=== PATIENT | female | born 1955 | race Caucasian/White ===

== ENCOUNTER 2018-01-19 14:20 | Emergency (ER) | payer OTHER, SELFPAY ==
[2018-01-19 14:29] VITALS: BP 129/86; PULSE 74; RESP 16; TEMP 36.4; O2SAT 100
--- NOTE | 2018-01-19 14:37 | ED.HA ---
HPI - Headache <MARITZA NelsonBC - Last Filed: 01/19/18 22:00> General Chief Complaint: Headache Stated Complaint: FALL-HEAD HURTS Time Seen by Provider: 01/19/18 14:37 Source: patient and family Mode of arrival: ambulatory Limitations: no limitations History of Present Illness HPI Narrative: Patient states she fell on Saturday while on a cruise. She hit her head while she was walking in the dark. She tripped and fell. She denied LOC. However she states the next day her friend said she was acting confused and she had difficulty using her words. She complained of feeling slow and feeling ???foggy.??? She denies any vomiting and states she has felt better since. However her head still hurts. She has been taking ibuprofen for the pain. Last dose approximately 5 hr prior to arrival. She denies any nausea, vomiting, noise sensitivity or light sensitivity. She denies any chest pain, shortness of breath, neck pain or back pain. Related Data Previous Rx's Medication Instructions Recorded bupropion HCl 300 mg PO QDAY #90 tab 04/30/17 buspirone 10 mg PO BID #180 tab 04/30/17 fluticasone 1 spray INTRANASAL BID #16 gm 04/30/17 hydrochlorothiazide 25 mg PO QDAY #90 tab 04/30/17 lisinopril [Prinivil] 20 mg PO Q DAY #90 tab 04/30/17 ranitidine HCl 150 mg PO QDAY #180 tab 04/30/17 simvastatin 20 mg PO HS #90 tab 04/30/17 topiramate [Topamax] 25 mg PO QDAY #90 cap 04/30/17 trazodone 50 mg PO HSP PRN #90 tab 04/30/17 scopolamine 1 mg over 3 days 1 patch TRANSDERMAL Q3D PRN #2 01/08/18 transdermal patch patch Allergies Allergy/AdvReac Type Severity Reaction Status Date / Time Penicillins [PENICILLINS] Allergy Unknown Unverified 12/11/17 12:59 SULFA Allergy Severe ANAPHYLAXIS Uncoded 12/11/17 12:59 Review of Systems <DAVE Nelson - Last Filed: 01/19/18 22:00> Review of Systems GENERAL: See HPI HEENT: Denies sinus pain, ear pain, sore throat, difficulty swallowing, dizziness. RESPIRATORY: Denies dyspnea, cough, wheezing, hemoptysis, sputum. CARDIOVASCULAR: Denies chest pain, palpitations, orthopnea, edema, GASTROINTESTINAL: Denies nausea, vomiting, abdominal pain, diarrhea, constipation, melena. : Denies dysuria, frequency, incontinence, hematuria, urinary retention. MUSCULOSKELETAL: denies weakness, joint pain, or bony pain SKIN: Denies rash, skin lesions, or other NEUROLOGIC: See HPI PSYCHIATRIC: No concerning psychosocial issues. 12 point review of systems is negative except for those stated above Exam <RAHUL Nelson-BC - Last Filed: 01/19/18 22:00> Narrative Exam Narrative: GENERAL: This is a well-nourished, well-developed patient, in no distress HEAD: Atraumatic. Normocephalic. Patient complains of slight tenderness when palpating the back of her head. However no deformity palpated no hematoma noted EYES: Pupils equal round and reactive. Extraocular motions intact. No scleral icterus. No injection or drainage. No nystagmus on exam. ENT: Nose without bleeding, purulent drainage or septal hematoma. Throat without erythema, tonsillar hypertrophy or exudate. Uvula midline. Airway patent. NECK: Trachea midline. No JVD or lymphadenopathy. Supple, nontender, no meningeal signs. CARDIOVASCULAR: Regular rate and rhythm without murmurs, gallops, or rubs. RESPIRATORY: Clear to auscultation. Breath sounds equal bilaterally. No wheezes, rales, or rhonchi. GASTROINTESTINAL: Abdomen soft, non-tender, nondistended. No hepato-splenomegaly, or palpable masses. No guarding. EXTREMITIES: No clubbing, cyanosis, or edema. No joint tenderness, effusion, or edema noted. BACK: Nontender without deformity or crepitance. No flank tenderness. No C-spine or spinal tenderness to palpation. NEURO: AOx3. Strength equal upper and lower extremities bilaterally. Upper and lower reflexes intact. SKIN: No rash or erythema. Initial Vital Signs Initial Vital Signs: Vital Signs Temperature 97.6 F 01/19/18 14:29 Pulse Rate 74 01/19/18 14:29 Respiratory Rate 16 01/19/18 14:29 Blood Pressure 129/86 H 01/19/18 14:29 Pulse Oximetry 100 01/19/18 14:29 <Alex Dumont DO - Last Filed: 01/20/18 07:15> Initial Vital Signs Initial Vital Signs: Vital Signs Temperature 97.6 F 01/19/18 14:29 Pulse Rate 74 01/19/18 14:29 Respiratory Rate 16 01/19/18 14:29 Blood Pressure 129/86 H 01/19/18 14:29 Pulse Oximetry 100 01/19/18 14:29 Course <Maggi HuynhRAHUL-BC - Last Filed: 01/19/18 22:00> Hospital Course: The patient presented several days after falling and hitting her head. She is alert and oriented with a reassuring exam. She had a CT noncontrast to evaluate for intracranial abnormality. Once that came back negative she was given Toradol and Tylenol for her headache with pain relief. Orders Ordered: Discontinued Medications Acetaminophen (Tylenol) 975 mg PO NOW ONE Stop: 01/19/18 16:00 Last Admin: 01/19/18 16:22 Dose: 975 mg Ketorolac Tromethamine (Toradol) 30 mg IM NOW ONE Stop: 01/19/18 16:00 Last Admin: 01/19/18 16:22 Dose: 30 mg Vital Signs - 8 hr 01/19/18 14:29 01/19/18 15:52 01/19/18 16:54 Temperature 97.6 F 98.4 F Pulse Rate 74 68 67 Respiratory Rate 16 18 20 Blood Pressure 129/86 H 130/79 H Blood Pressure [Left Arm] 124/80 H Pulse Oximetry 100 94 96 <Alex Dumont DO - Last Filed: 01/20/18 07:15> Orders Ordered: Discontinued Medications Acetaminophen (Tylenol) 975 mg PO NOW ONE Stop: 01/19/18 16:00 Last Admin: 01/19/18 16:22 Dose: 975 mg Ketorolac Tromethamine (Toradol) 30 mg IM NOW ONE Stop: 01/19/18 16:00 Last Admin: 01/19/18 16:22 Dose: 30 mg Vital Signs - 8 hr 01/19/18 14:29 01/19/18 15:52 01/19/18 16:54 Temperature 97.6 F 98.4 F Pulse Rate 74 68 67 Respiratory Rate 16 18 20 Blood Pressure 129/86 H 130/79 H Blood Pressure [Left Arm] 124/80 H Pulse Oximetry 100 94 96 MDM - Headache <DAVE Nelson - Last Filed: 01/19/18 22:00> Differential Diagnosis Differential diagnosis: Likely migraine, headache and postconcussion syndrome Medical Records Attestation: I reviewed the patient's medical records. Imaging Data CT scan - head: Radiologist's impression: [address] [address] [address] Scan Report Signed Patient: Claudette Vaughn MR#: [id number] : 1955 Acct:[id number] Age/Sex: 62 / F Date of Service: 01/19/18 Loc: ED Accession Number: [id number] Procedure: CT head/brain wo con Ordering Provider: Maggi Huynh PROCEDURE: CT HEAD/BRAIN WO CON INDICATIONS: fall TECHNIQUE: Noncontrast 4.5 mm thick angled axial sections acquired from the foramen magnum to the vertex, with coronal and sagittal reformats. For radiation dose reduction, the following was used: automated exposure control, adjustment of mA and/or kV according to patient size. COMPARISON: None. FINDINGS: Image quality: Excellent. CSF spaces: Basal cisterns are patent. No extra-axial fluid collections. Ventricles are normal in size and shape. Brain: No intracranial hemorrhage, mass, or mass effect. Rivera-white matter interface is preserved. Skull and face: Calvarium and visualized facial bones are intact, without suspicious lesions. Sinuses: Visualized sinuses demonstrate mild mucosal thickening within the maxillary and ethmoid sinuses. The mastoid air cells are clear. IMPRESSION: 1. No acute intracranial abnormality. Dictated by: Remington Trinidad M.D. on 01/19/2018 at 15:33 Approved by: Remington Trinidad M.D. on 01/19/2018 at 15:34 [facility] Narrative Medical decision making narrative: The patient presented several days after falling and hitting her head. Given that she tripped and fell without LOC but had persistent neurological symptoms according to her friends, a CT was obtained. The CT came back within normal limits and she is not on blood thinners. I am comfortable discharging her with concussion precautions to come back if she has any altered mental status or sudden acute changes. Given the length of time since the fall, I am confident that she will continue to improve. However I discussed at length her return precautions and she states understanding and appreciation. No questions or concerns upon discharge. Discharge Plan Departure Patient Disposition: Home, Self-Care Clinical Impression: Headache, Concussion Discharge Date/Time: 01/19/18 16:55 Interventions: ED Discharge Assessment Last Done: 01/19/18 16:54 Instructions: DI for Concussion, DI for Headache Activity Restrictions/Additional Instructions: Your brain scan today came back normal. I think you have a concussion. Monitor for confusion, trouble speaking, and vomiting. Come back if you are worried about you neuro status. Continue to take Tylenol and ibuprofen for pain. Please do not take ibuprofen for about 8 hr given the pain shot you received here today. Prescriptions: No Action trazodone 50 MG tablet 50 mg PO HSP PRNQty: 90 RF: 3 lisinopril [Prinivil] 20 MG tablet 20 mg PO Q DAY Qty: 90 RF: 3 topiramate [Topamax] 25 MG capsule, sprinkle 25 mg PO QDAY Qty: 90 RF: 3 simvastatin 20 MG tablet 20 mg PO HS Qty: 90 RF: 3 ranitidine HCl 150 MG tablet 150 mg PO QDAY Qty: 180 RF: 3 buspirone 10 MG tablet 10 mg PO BID Qty: 180 RF: 3 hydrochlorothiazide 25 MG tablet 25 mg PO QDAY Qty: 90 RF: 3 fluticasone 16 GM spray,suspension 1 spray Intranasal BID Qty: 16 RF: 3 bupropion HCl 300 MG tablet extended release 24 hr 300 mg PO QDAY Qty: 90 RF: 3 scopolamine base [Transderm-Scop] 1 mg over 3 days patch 3 day 1 patch Transdermal Q3D PRN (Reason: motion sickness) Qty: 2 RF: 0 Referrals: Bisi Lockwood MD [Primary Care Provider] - <Alex Dumont DO - Last Filed: 01/20/18 07:15> Cosign ED Attending Jerryature Attestation: I was available for consultation during this patient's emergency department encounter
--- NOTE | 2018-01-19 14:45 | DI.CT.S_ITS ---
PROCEDURE: CT HEAD/BRAIN WO CON INDICATIONS: fall TECHNIQUE: Noncontrast 4.5 mm thick angled axial sections acquired from the foramen magnum to the vertex, with coronal and sagittal reformats. For radiation dose reduction, the following was used: automated exposure control, adjustment of mA and/or kV according to patient size. COMPARISON: None. FINDINGS: Image quality: Excellent. CSF spaces: Basal cisterns are patent. No extra-axial fluid collections. Ventricles are normal in size and shape. Brain: No intracranial hemorrhage, mass, or mass effect. Rivera-white matter interface is preserved. Skull and face: Calvarium and visualized facial bones are intact, without suspicious lesions. Sinuses: Visualized sinuses demonstrate mild mucosal thickening within the maxillary and ethmoid sinuses. The mastoid air cells are clear. IMPRESSION: 1. No acute intracranial abnormality. Dictated by: Remington Trinidad M.D. on 01/19/2018 at 15:33 Approved by: Remington Trinidad M.D. on 01/19/2018 at 15:34
--- NOTE | 2018-01-19 14:51 | PC.NURSE ---
pt reports, she was in the cruise [place], lost balance, back of head injury, denies loc, denies neck or back pain,occured at 230am, pt able to get up , then she went to sleep. has been taking ibuprofen 2-3 tabs without relief, last dose at 1130am today. c/o rght side headache, dull achy. neuro fast exam negative
[2018-01-19 15:52] VITALS: BP 124/80; PULSE 68; RESP 18; O2SAT 94
[2018-01-19] MEDS: KETOROLAC 60 MG/2 ML VIAL 30 MG IM (16:22)
[2018-01-19] MEDS: ACETAMINOPHEN 325 MG TABLET 975 MG PO (16:22)
--- NOTE | 2018-01-19 16:50 | ED_ITS ---
HPI - Headache <MARITZA NelsonBC - Last Filed: 01/19/18 22:00> General Chief Complaint: Headache Stated Complaint: FALL-HEAD HURTS Time Seen by Provider: 01/19/18 14:37 Source: patient and family Mode of arrival: ambulatory Limitations: no limitations History of Present Illness HPI Narrative: Patient states she fell on Saturday while on a cruise. She hit her head while she was walking in the dark. She tripped and fell. She denied LOC. However she states the next day her friend said she was acting confused and she had difficulty using her words. She complained of feeling slow and feeling ?foggy.? She denies any vomiting and states she has felt better since. However her head still hurts. She has been taking ibuprofen for the pain. Last dose approximately 5 hr prior to arrival. She denies any nausea, vomiting , noise sensitivity or light sensitivity. She denies any chest pain, shortness of breath, neck pain or back pain. Related Data Previous Rx's Medication Instructions Recorded bupropion HCl 300 mg PO QDAY #90 tab 04/30/17 buspirone 10 mg PO BID #180 tab 04/30/17 fluticasone 1 spray INTRANASAL BID #16 gm 04/30/17 hydrochlorothiazide 25 mg PO QDAY #90 tab 04/30/17 lisinopril [Prinivil] 20 mg PO Q DAY #90 tab 04/30/17 ranitidine HCl 150 mg PO QDAY #180 tab 04/30/17 simvastatin 20 mg PO HS #90 tab 04/30/17 topiramate [Topamax] 25 mg PO QDAY #90 cap 04/30/17 trazodone 50 mg PO HSP PRN #90 tab 04/30/17 scopolamine 1 mg over 3 days 1 patch TRANSDERMAL Q3D PRN #2 01/08/18 transdermal patch patch Allergies Allergy/AdvReac Type Severity Reaction Status Date / Time Penicillins [PENICILLINS] Allergy Unknown Unverified 12/11/17 12:59 SULFA Allergy Severe ANAPHYLAXIS Uncoded 12/11/17 12:59 Review of Systems <DAVE Nelson - Last Filed: 01/19/18 22:00> Review of Systems GENERAL: See HPI HEENT: Denies sinus pain, ear pain, sore throat, difficulty swallowing, dizziness. RESPIRATORY: Denies dyspnea, cough, wheezing, hemoptysis, sputum. CARDIOVASCULAR: Denies chest pain, palpitations, orthopnea, edema, GASTROINTESTINAL: Denies nausea, vomiting, abdominal pain, diarrhea, constipation, melena. : Denies dysuria, frequency, incontinence, hematuria, urinary retention. MUSCULOSKELETAL: denies weakness, joint pain, or bony pain SKIN: Denies rash, skin lesions, or other NEUROLOGIC: See HPI PSYCHIATRIC: No concerning psychosocial issues. 12 point review of systems is negative except for those stated above Exam <RAHUL Nelson-BC - Last Filed: 01/19/18 22:00> Narrative Exam Narrative: GENERAL: This is a well-nourished, well-developed patient, in no distress HEAD: Atraumatic. Normocephalic. Patient complains of slight tenderness when palpating the back of her head. However no deformity palpated no hematoma noted EYES: Pupils equal round and reactive. Extraocular motions intact. No scleral icterus. No injection or drainage. No nystagmus on exam. ENT: Nose without bleeding, purulent drainage or septal hematoma. Throat without erythema, tonsillar hypertrophy or exudate. Uvula midline. Airway patent. NECK: Trachea midline. No JVD or lymphadenopathy. Supple, nontender, no meningeal signs. CARDIOVASCULAR: Regular rate and rhythm without murmurs, gallops, or rubs. RESPIRATORY: Clear to auscultation. Breath sounds equal bilaterally. No wheezes , rales, or rhonchi. GASTROINTESTINAL: Abdomen soft, non-tender, nondistended. No hepato-splenomegaly , or palpable masses. No guarding. EXTREMITIES: No clubbing, cyanosis, or edema. No joint tenderness, effusion, or edema noted. BACK: Nontender without deformity or crepitance. No flank tenderness. No C- spine or spinal tenderness to palpation. NEURO: AOx3. Strength equal upper and lower extremities bilaterally. Upper and lower reflexes intact. SKIN: No rash or erythema. Initial Vital Signs Initial Vital Signs: Vital Signs Temperature 97.6 F 01/19/18 14:29 Pulse Rate 74 01/19/18 14:29 Respiratory Rate 16 01/19/18 14:29 Blood Pressure 129/86 H 01/19/18 14:29 Pulse Oximetry 100 01/19/18 14:29 <Alex Dumont DO - Last Filed: 01/20/18 07:15> Initial Vital Signs Initial Vital Signs: Vital Signs Temperature 97.6 F 01/19/18 14:29 Pulse Rate 74 01/19/18 14:29 Respiratory Rate 16 01/19/18 14:29 Blood Pressure 129/86 H 01/19/18 14:29 Pulse Oximetry 100 01/19/18 14:29 Course <RAHUL Nelson-BC - Last Filed: 01/19/18 22:00> Hospital Course: The patient presented several days after falling and hitting her head. She is alert and oriented with a reassuring exam. She had a CT noncontrast to evaluate for intracranial abnormality. Once that came back negative she was given Toradol and Tylenol for her headache with pain relief. Orders Ordered: Discontinued Medications Acetaminophen (Tylenol) 975 mg PO NOW ONE Stop: 01/19/18 16:00 Last Admin: 01/19/18 16:22 Dose: 975 mg Ketorolac Tromethamine (Toradol) 30 mg IM NOW ONE Stop: 01/19/18 16:00 Last Admin: 01/19/18 16:22 Dose: 30 mg Vital Signs - 8 hr 01/19/18 14:29 01/19/18 15:52 01/19/18 16:54 Temperature 97.6 F 98.4 F Pulse Rate 74 68 67 Respiratory Rate 16 18 20 Blood Pressure 129/86 H 130/79 H Blood Pressure [Left Arm] 124/80 H Pulse Oximetry 100 94 96 <Alex Dumont DO - Last Filed: 01/20/18 07:15> Orders Ordered: Discontinued Medications Acetaminophen (Tylenol) 975 mg PO NOW ONE Stop: 01/19/18 16:00 Last Admin: 01/19/18 16:22 Dose: 975 mg Ketorolac Tromethamine (Toradol) 30 mg IM NOW ONE Stop: 01/19/18 16:00 Last Admin: 01/19/18 16:22 Dose: 30 mg Vital Signs - 8 hr 01/19/18 14:29 01/19/18 15:52 01/19/18 16:54 Temperature 97.6 F 98.4 F Pulse Rate 74 68 67 Respiratory Rate 16 18 20 Blood Pressure 129/86 H 130/79 H Blood Pressure [Left Arm] 124/80 H Pulse Oximetry 100 94 96 MDM - Headache <DAVE Nelson - Last Filed: 01/19/18 22:00> Differential Diagnosis Differential diagnosis: Likely migraine, headache and postconcussion syndrome Medical Records Attestation: I reviewed the patient's medical records. Imaging Data CT scan - head: Radiologist's impression: [address] [address] [address] Scan Report Signed Patient: Claudette Vaughn MR#: [id number] : 1955 Acct:[id number] Age/Sex: 62 / F Date of Service: 01/19/18 Loc: ED Accession Number: [id number] Procedure: CT head/brain wo con Ordering Provider: Maggi Huynh PROCEDURE: CT HEAD/BRAIN WO CON INDICATIONS: fall TECHNIQUE: Noncontrast 4.5 mm thick angled axial sections acquired from the foramen magnum to the vertex, with coronal and sagittal reformats. For radiation dose reduction, the following was used: automated exposure control, adjustment of mA and/or kV according to patient size. COMPARISON: None. FINDINGS: Image quality: Excellent. CSF spaces: Basal cisterns are patent. No extra-axial fluid collections. Ventricles are normal in size and shape. Brain: No intracranial hemorrhage, mass, or mass effect. Rivera-white matter interface is preserved. Skull and face: Calvarium and visualized facial bones are intact, without suspicious lesions. Sinuses: Visualized sinuses demonstrate mild mucosal thickening within the maxillary and ethmoid sinuses. The mastoid air cells are clear. IMPRESSION: 1. No acute intracranial abnormality. Dictated by: Remington Trinidad M.D. on 01/19/2018 at 15:33 Approved by: Remington Trinidad M.D. on 01/19/2018 at 15:34 [facility] Narrative Medical decision making narrative: The patient presented several days after falling and hitting her head. Given that she tripped and fell without LOC but had persistent neurological symptoms according to her friends, a CT was obtained. The CT came back within normal limits and she is not on blood thinners. I am comfortable discharging her with concussion precautions to come back if she has any altered mental status or sudden acute changes. Given the length of time since the fall, I am confident that she will continue to improve. However I discussed at length her return precautions and she states understanding and appreciation. No questions or concerns upon discharge. Discharge Plan Departure Patient Disposition: Home, Self-Care Clinical Impression: Headache, Concussion Discharge Date/Time: 01/19/18 16:55 Interventions: ED Discharge Assessment Last Done: 01/19/18 16:54 Instructions: DI for Concussion, DI for Headache Activity Restrictions/Additional Instructions: Your brain scan today came back normal. I think you have a concussion. Monitor for confusion, trouble speaking, and vomiting. Come back if you are worried about you neuro status. Continue to take Tylenol and ibuprofen for pain. Please do not take ibuprofen for about 8 hr given the pain shot you received here today. Prescriptions: No Action trazodone 50 MG tablet 50 mg PO HSP PRNQty: 90 RF: 3 lisinopril [Prinivil] 20 MG tablet 20 mg PO Q DAY Qty: 90 RF: 3 topiramate [Topamax] 25 MG capsule, sprinkle 25 mg PO QDAY Qty: 90 RF: 3 simvastatin 20 MG tablet 20 mg PO HS Qty: 90 RF: 3 ranitidine HCl 150 MG tablet 150 mg PO QDAY Qty: 180 RF: 3 buspirone 10 MG tablet 10 mg PO BID Qty: 180 RF: 3 hydrochlorothiazide 25 MG tablet 25 mg PO QDAY Qty: 90 RF: 3 fluticasone 16 GM spray,suspension 1 spray Intranasal BID Qty: 16 RF: 3 bupropion HCl 300 MG tablet extended release 24 hr 300 mg PO QDAY Qty: 90 RF: 3 scopolamine base [Transderm-Scop] 1 mg over 3 days patch 3 day 1 patch Transdermal Q3D PRN (Reason: motion sickness) Qty: 2 RF: 0 Referrals: Bisi Lockwood MD [Primary Care Provider] - <Alex Dumont DO - Last Filed: 01/20/18 07:15> Cosign ED Attending Deb Attestation: I was available for consultation during this patient's emergency department encounter
[2018-01-19 16:54] VITALS: BP 130/79; PULSE 67; RESP 20; TEMP 36.9; O2SAT 96
== END 2018-01-19 16:55 | disposition home or self-care (01) ==
PROVIDERS: Emergency Provider Nurse Practitioner Family; PCP Family Medicine
DX: R51 Headache (principal); S06.0X9A Concussion with loss of consciousness of unspecified duration, initial encounter; W19.XXXA Unspecified fall, initial encounter
CPT/HCPCS: 70450; 96372; 99283; J1885

== ENCOUNTER → 2018-07-04 09:31 | Outpatient (CLI) | payer MEDICARE, OTHER, SELFPAY ==
[2018-07-04 10:28] LABS: BUN Creatinine Ratio 21.3 (6-22); Blood Urea Nitrogen 17 mg/dL (7-17); Estimated Glomerular Filt Rate > 60.0 mL/min (>60)
== END ==
PROVIDERS: PCP Family Medicine; Visit Provider Ophthalmology
DX: H05.20 Unspecified exophthalmos (principal)
CPT/HCPCS: 36415; 82565; 84520

== ENCOUNTER → 2018-07-10 07:32 | Outpatient (CLI) | payer MEDICARE, OTHER, SELFPAY ==
--- NOTE | 2018-07-10 | DI.MRI.S_ITS ---
PROCEDURE: MR HEAD/BRAIN WO/W CON INDICATIONS: Unspecified exophthalmos TECHNIQUE: Noncontrast axial T1 spin echo, axial T2 fast spin echo, sagittal and axial FLAIR, coronal T2 fast spin echo, axial gradient echo, axial diffusion and ADC through the brain. After the administration of contrast, axial and coronal T1 spin echo with fat saturation through the brain. COMPARISON: [facility], CT, CT HEAD/BRAIN WO CON, 01/19/2018, 14:55. FINDINGS: Image quality: Excellent. CSF spaces: Basal cisterns are patent. No extra-axial fluid collections. Ventricles are normal in size and shape. Brain: No midline shift. No intracranial bleeds or masses. No abnormal intracranial enhancement. There is cerebral volume loss for age. There is periventricular white matter chronic small vessel ischemic change. The brainstem appears normal. Diffusion-weighted images demonstrate no acute ischemic insults. No chronic ischemic insults. Normal intravascular flow voids are present. Skull and face: Calvarial marrow is normal in signal. Orbits appear normal. Extraocular muscles are within normal limits. Visualized optic nerve and optic chiasm are within normal limits. Mild proptosis is present. Sinuses: Sinuses demonstrate minimal frothy fluid within the right maxillary sinus. Otherwise, there is minimal mild li sinus mucosal thickening. Frontal sinuses are aplastic, consistent with congenital variation. IMPRESSION: 1. No acute intracranial process. 2. Mild proptosis. Otherwise, orbits are unremarkable. Dictated by: Paola Ronquillo M.D. on 07/10/2018 at 9:57 Approved by: Paola Ronquillo M.D. on 07/10/2018 at 10:37
== END ==
PROVIDERS: PCP Family Medicine; Visit Provider Family Medicine
DX: H05.20 Unspecified exophthalmos (principal)
CPT/HCPCS: 70553; A9579

== ENCOUNTER → 2018-07-15 09:19 | Outpatient (CLI) | payer MEDICARE, OTHER, SELFPAY | PROVIDERS: PCP Family Medicine; Visit Provider Family Medicine | DX: Z12.11 Encounter for screening for malignant neoplasm of colon (principal) ==

== ENCOUNTER → 2018-07-15 | Outpatient (CLI) | payer MEDICARE, OTHER, SELFPAY | PROVIDERS: PCP Family Medicine; Visit Provider Family Medicine | DX: Z12.11 Encounter for screening for malignant neoplasm of colon (principal) ==

== ENCOUNTER → 2018-08-18 09:32 | Outpatient (CLI) | payer MEDICARE, OTHER, SELFPAY ==
[2018-08-18 11:18] LABS: TSH w/ Reflex to FT4 1.05 uIU/mL (0.47-4.68)
== END ==
PROVIDERS: PCP Family Medicine; Visit Provider Family Medicine
DX: H05.20 Unspecified exophthalmos (principal)
CPT/HCPCS: 36415; 84443

== ENCOUNTER → 2018-09-16 07:40 | Outpatient (CLI) | payer MEDICARE, OTHER, SELFPAY ==
--- NOTE | 2018-09-16 | DI.CT.S_ITS ---
PROCEDURE: CT LE LT W CON INDICATIONS: POST FRACTURE OF LEFT TIBIAL PLATE PLATEAU TECHNIQUE: Noncontrast 1-1.5 mm axial sections acquired from the mid-patella to the proximal tibia, with coronal and sagittal reformats. COMPARISON: [facility], XR KNEE ARTHRITIC SERIES LT, 09/15/2018, 14:58. FINDINGS: Image quality: Excellent. Bones: A corresponding to the abnormality seen on plain film imaging 09/15/18 there is a lateral tibial plateau fracture that is underestimated by plain film imaging. This fracture has a transverse dimension of approximately 2.7 cm and centrally there is a component of the tibial plateau that is fractured and a impacted inferiorly via approximately 8 mm from anatomic position. This is associated with a vertically oriented along the fracture plane extending from the articular margin into the proximal diaphysis of the tibia, superiorly to a greater degree than inferiorly. The lateral aspect of the lateral tibial plateau is not depressed and appears in virtual anatomic alignment. On sagittal reformatted imaging the depressed tibial plateau component is predominantly involving the posterior half of the lateral tibial plateau and the posterior cortical margin in that area is displaced posteriorly by approximately 4 mm from anatomic position. Soft tissues: There is a mild to moderate suprapatellar joint effusion without lipohemarthrosis. No soft tissue hematoma. IMPRESSION: A central depressed (8mm depression, 2.7 cm transverse dimension) lateral tibial plateau fracture is identified, with normal alignment of the most lateral aspect of the lateral tibial plateau when compared to the central depressed component. As discussed, the sagittal reformatt imaging shows the posterior cortical border of the lateral tibial plateau to the fractured also and displaced posteriorly by approximately 4 mm. A long vertically oriented fracture plane extends into the proximal diaphysis of the tibia from the plateau fracture and there is potential risk of further or malalignment given what appears to be unstable components of this complex fracture. Dictated by: Cristobal Ramos M.D. on 09/16/2018 at 9:33 Approved by: Cristobal Ramos M.D. on 09/16/2018 at 9:41
== END ==
PROVIDERS: PCP Family Medicine; Visit Provider Orthopaedic Surgery
DX: S82.142A Displaced bicondylar fracture of left tibia, initial encounter for closed fracture (principal)
CPT/HCPCS: 73700

== ENCOUNTER 2018-09-17 13:54 | Day surgery (SDC) | payer MEDICARE, OTHER, SELFPAY ==
[2018-09-17] VITALS (8 sets, daily range): BP systolic 124–150; BP diastolic 78–95; PULSE 77–93; RESP 11–16; TEMP 36.4–36.9; O2SAT 96–99; BMI 25.6
--- NOTE | 2018-09-17 | DI.RAD.S_ITS ---
PROCEDURE: XR TIBIA FIBULA LEFT 2V INDICATIONS: ORIF Left tibia TECHNIQUE: 2 views of the left tibia and fibula were acquired. COMPARISON: [facility] [place], CR, XR KNEE ARTHRITIC SERIES LT, 09/15/2018, 14:58. [facility], CT, CT LE LT WO CON, 09/16/2018, 7:49. FINDINGS: Intraoperative fluoroscopy documents the placement of 2 transverse screws within the proximal left tibial metaphysis, consistent with internal fixation of the previously identified left tibial plateau fracture. IMPRESSION: Internal fixation of the previously identified left tibial plateau fracture. Please see operative report for further details. Dictated by: Juancarlos Richard M.D. on 09/17/2018 at 17:40 Approved by: Juancarlos Richard M.D. on 09/17/2018 at 17:42
[2018-09-17] MEDS: LACTATED RINGERS 1,000 ML 42 ML IV (15:03)
--- NOTE | 2018-09-17 16:11 | PM.PREOP ---
Pre-operative Note Interval Note History & Physical reviewed/Exam performed by Physician: Yes Changes to H&P: No
--- NOTE | 2018-09-17 16:12 | PM.OP.1 ---
Operative Date/Time/Diagnoses Date of procedure: 09/17/18 Time of procedure: 17:20 Pre-op diagnosis: Left lateral tibial plateau fracture Post-op diagnosis: same Procedure & Clinicians Procedure: Percutaneous screw fixation of left lateral tibial plateau fracture Same procedure as scheduled: Yes Surgeon: Remington Yeh [employer] Animal Caretaker: Zackery Burch Anesthesia Type: General and Local Operative Notes Findings: The fracture appeared essentially nondisplaced on x-ray. 2 7.3 cannulated screws were placed across the fracture with good purchase. Position of fracture and hardware was good on AP and lateral fluoroscopy. Closure Type: primary Specimen(s): none sent Implants & Drains: Synthes 7.3 mm cannulated screws. Applied: implant(s) Estimated Blood Loss (mL): 5 Tourniquet time (min): 0 Procedure in detail: The patient was taken the operative suite and placed under general anesthesia. Prophylactic antibiotics were given prior to surgery. The fracture was evaluated on AP and lateral fluoroscopy. Two guidewires were placed through stab incisions perpendicular to the fracture line. The fracture was then compressed and stabilized with 27.3 mm partially threaded cannulated screws placed over the guidewires. Final AP and lateral fluoroscopy showed excellent position of the fracture and hardware. The wounds were irrigated and then closed with 2 0 and 4 0 Vicryl. Steri-Strips were placed on the skin. A bulky sterile gauze dressing and hinged knee brace was placed. Complications: none Condition: stable Disposition: same day surgery Plan for aftercare: Discharged to home. The patient will wear her hinged knee brace at all times except for showering. She will progress range of motion exercises of the knee as tolerated but will be non-weightbearing for 6 weeks. Physical therapy to start next week.
[2018-09-17] MEDS: CLINDAMYCIN 900 MG/50 ML PIGGYBACK 50 MG IV (16:14)
[2018-09-17] MEDS: BUPIVACAINE 0.25% W/ EPI VIAL 50 ML INJ (17:02)
[2018-09-17] MEDS: fentaNYL 100 MCG/2 ML INJ 50 MCG IV ×2 (17:46→17:57)
[2018-09-17] MEDS: HYDROCODONE/ACET 5/325 TABLET 1 TAB PO (18:07)
== END 2018-09-17 18:34 | disposition home or self-care (01) ==
PROVIDERS: PCP Family Medicine; Visit Provider Orthopaedic Surgery
PROC: (CPT 27756; principal; 2018-09-17 15:45)
DX: S82.142A Displaced bicondylar fracture of left tibia, initial encounter for closed fracture (principal); M17.12 Unilateral primary osteoarthritis, left knee; X50.1XXA Overexertion from prolonged static or awkward postures, initial encounter; Y93.23 Activity, snow (alpine) (downhill) skiing, snowboarding, sledding, tobogganing and snow tubing
CPT/HCPCS: 27756; 73590; J1100; J1885; J2250; J2405; J2704; J3010

== ENCOUNTER → 2019-01-22 08:37 | Outpatient (CLI) | payer MEDICARE, OTHER, SELFPAY ==
[2019-01-22 10:57] LABS: Vitamin D 25 Hydroxy (D3) 25.1 ng/mL (30.0-100.0)
== END ==
PROVIDERS: PCP Family Medicine; Visit Provider Orthopaedic Surgery Foot and Ankle Surgery
DX: M84.375A Stress fracture, left foot, initial encounter for fracture (principal); R79.89 Other specified abnormal findings of blood chemistry
CPT/HCPCS: 36415; 82306

== ENCOUNTER → 2019-01-28 07:37 | Outpatient (CLI) | payer MEDICARE, OTHER, SELFPAY ==
--- NOTE | 2019-01-28 | DI.MRI.S_ITS ---
PROCEDURE: MRFOOT LT WO CON INDICATIONS: LEFT FOOT PAIN TECHNIQUE: Noncontrast sagittal T1 spin echo and T2 fast spin echo with fat saturation, long-axis T1 spin echo and T2 fast spin echo with fat saturation, short-axis T1 spin echo and T2 fast spin echo with fat saturation through the forefoot. COMPARISON: [facility] [place], CR, XR FOOT 3 VIEWS WEIGHT BEARING LEFT, 11/24/2018, 9:21. [facility] [place], CR, XR FOOT 1 OR 2 VIEWS LEFT, 12/02/2018, 9:12. FINDINGS: Image quality: Excellent. Bones and joints: Proximal fourth metatarsal stress fracture with associated marrow edema. No discrete fracture line is identified. The sesamoid bones appear in expected positions, without internal edema. No metatarsophalangeal joint degeneration. No intraosseous lesions. Soft tissues: Visualized flexor and extensor tendons appear intact, without tenosynovitis. The distal insertions of the peroneus brevis and longus tendons appear intact. The principal Lisfranc ligament appears intact. No soft tissue ganglion cysts or bursal fluid collections. Sagittal images demonstrate no evidence for plantar plate tears. IMPRESSION: Proximal fourth metatarsal stress fracture. Associated marrow and adjacent soft tissue edema. Dictated by: Miki Kohli M.D. on 01/28/2019 at 9:52 Approved by: Miki Kohli M.D. on 01/28/2019 at 9:57
== END ==
PROVIDERS: PCP Family Medicine; Visit Provider Orthopaedic Surgery Foot and Ankle Surgery
DX: M79.672 Pain in left foot (principal); M84.375A Stress fracture, left foot, initial encounter for fracture
CPT/HCPCS: 73718

== ENCOUNTER → 2019-02-18 10:21 | Outpatient (CLI) | payer MEDICARE, OTHER, SELFPAY ==
--- NOTE | 2019-02-18 10:25 | DI.RAD.S_ITS ---
PROCEDURE: XR CHEST 2V INDICATIONS: cough TECHNIQUE: 2 views of the chest were acquired. COMPARISON: [facility], , CHEST 2 VIEW, 11/21/2012, 13:52. FINDINGS: Surgical changes and devices: None. Lungs and pleura: Lungs are clear. No pleural effusions or pneumothorax. Mediastinum: Mediastinal contours are normal. Heart size is normal. Bones and chest wall: No suspicious bony abnormalities. Soft tissues appear unremarkable. IMPRESSION: No acute cardiopulmonary findings. Dictated by: Tere Salguero M.D. on 02/18/2019 at 11:54 Approved by: Tere Salguero M.D. on 02/18/2019 at 11:54
== END ==
PROVIDERS: PCP Family Medicine; Visit Provider Family Medicine
DX: R05 Cough (principal)
CPT/HCPCS: 71046

== ENCOUNTER → 2019-02-19 13:21 | Outpatient (CLI) | payer MEDICARE, OTHER, SELFPAY | PROVIDERS: PCP Family Medicine; Visit Provider Family Medicine | DX: Z13.820 Encounter for screening for osteoporosis (principal); M81.0 Age-related osteoporosis without current pathological fracture; Z78.0 Asymptomatic menopausal state | CPT/HCPCS: 77080 ==

== ENCOUNTER → 2019-02-21 07:45 | Outpatient (CLI) | payer MEDICARE, OTHER, SELFPAY ==
--- NOTE | 2019-02-21 07:47 | DI.MG.S_ITS ---
BILATERAL DIGITAL SCREENING MAMMOGRAM 3D/2D WITH CAD: 02/21/2019 CLINICAL: Routine screening. Family history of breast cancer. Comparison is made to exams dated: 08/16/2017 mammogram - [facility], 06/27/2015 mammogram, and 07/23/2013 mammogram - [facility]. There are scattered fibroglandular elements in both breasts. Current study was also evaluated with a Computer Aided Detection (CAD) system. No significant masses, calcifications, or other findings are seen in either breast. There has been no significant interval change. IMPRESSION: NEGATIVE There is no mammographic evidence of malignancy. A 1 year screening mammogram is recommended. This exam was interpreted at Station ID: [id number]. NOTE: For mammograms, a report in lay terms will be sent to the patient. Approximately 15% of breast malignancies will not be visualized mammographically. In the management of a palpable breast mass, a negative mammogram must not discourage biopsy of a clinically suspicious lesion. Electronically Signed By: Tere damon/ronnie:02/23/2019 09:12:51 letter sent: Normal Exam ACR BI-RADS Category 1: Negative [id number]
== END ==
PROVIDERS: PCP Family Medicine; Visit Provider Family Medicine
DX: Z12.31 Encounter for screening mammogram for malignant neoplasm of breast (principal); Z80.3 Family history of malignant neoplasm of breast
CPT/HCPCS: 77063; 77067

== ENCOUNTER → 2019-03-12 06:46 | Outpatient (CLI) | payer MEDICARE, OTHER, SELFPAY ==
--- NOTE | 2019-03-12 | DI.MRI.S_ITS ---
PROCEDURE: MR KNEE LT WO CON INDICATIONS: knee pain - left TECHNIQUE: Noncontrast sagittal PD fast spin echo and T2 fast spin echo with fat saturation, sagittal 3-D FLASH with fat saturation; coronal T1 spin echo and PD fast spin echo with fat saturation, and axial PD fast spin echo with fat saturation through the knee. COMPARISON: [facility] [place], CR, XR TIBIA FIBULA LEFT, 11/24/2018, 9:29. [facility] [place], CR, XR TIBIA FIBULA LEFT, 10/27/2018, 9:57. [facility] [place], CR, XR KNEE 1 OR 2 VIEWS LEFT, 09/29/2018, 13:11. [facility] [place], CR, XR KNEE ARTHRITIC SERIES LT, 09/15/2018, 14:58. [facility], CR, XR TIBIA FIBULA LT 2V, 09/17/2018, 17:02. [facility] [place], CR, KNEE SERIES LT, 03/17/2015, 11:26. [facility] [place], CR, XR TIBIA FIBULA LEFT, 12/22/2018, 8:32. [facility], CR, XR KNEE ARTHRITIC SERIES LT, 03/03/2019, 17:01. FINDINGS: Image quality: Metallic artifacts are present from surgical screws in proximal tibia, which partially obscure surrounding structures. Menisci: The medial and lateral menisci demonstrate normal morphology and internal signal. The meniscal root ligaments appear intact. Cruciate ligaments: The anterior and posterior cruciate ligaments appear intact. Medial structures: The medial collateral ligament appears intact. The emimembranosus tendon insertions appear intact. Visualized portions of the pes anserinus tendons appear normal. No abnormal bursal fluid. Lateral structures: The lateral collateral ligament and the biceps femoris tendon are intact. The popliteus tendon appears normal; the popliteofibular ligament appears intact. Iliotibial band appears normal. Anterior structures: The quadriceps and patellar tendons appear intact. Patellar alignment is normal. No femoral trochlear dysplasia or ventral trochlear prominence. No edema in the infrapatellar fat pad. Bones and cartilage: There are post surgical changes in the proximal tibia with 2 surgical screws in the proximal tibial metaphysis from internal fixation of medial tibial plateau and proximal tibial metaphyseal fracture. Healed or nearly tibial plateau fracture is noted. There is a subtle cortical step off in the medial tibial plateau. Metallic artifacts are noted, partially obscuring adjacent structures. There is mild tricompartmental cartilage loss. Joint space: There is dmgzt-dd-pqyaahsa knee joint effusion. Small non-ruptured Fields's cyst. Normal appearing synovial plicae are incidentally noted. IMPRESSION: 1. Postsurgical changes with surgical screws in the proximal tibia. 2. Healed or nearly healed tibia plateau fracture with subtle cortical step-off. 3. Mild tricompartmental cartilage loss. 4. A small Fields's cyst. 5. Kcfga-vu-hvgswgxh knee joint effusion. Dictated by: Guy Collier M.D. on 03/12/2019 at 10:06 Approved by: Guy Collier M.D. on 03/12/2019 at 10:51
== END ==
PROVIDERS: PCP Family Medicine; Visit Provider Physician Assistant
DX: M25.562 Pain in left knee (principal); M71.22 Synovial cyst of popliteal space [Baker], left knee; M25.462 Effusion, left knee; Z87.81 Personal history of (healed) traumatic fracture
CPT/HCPCS: 73721

== ENCOUNTER → 2019-04-21 06:39 | Outpatient (CLI) | payer MEDICARE, OTHER, SELFPAY ==
--- NOTE | 2019-04-21 | DI.MRI.S_ITS ---
PROCEDURE: MRFOOT LT WO CON INDICATIONS: Stress fracture, left foot, subsequent encounter f TECHNIQUE: Noncontrast sagittal T1 spin echo and T2 fast spin echo with fat saturation, long-axis T1 spin echo and T2 fast spin echo with fat saturation, short-axis T1 spin echo and T2 fast spin echo with fat saturation through the forefoot. COMPARISON: [facility] [place], CR, XR FOOT 3 VIEWS WEIGHT BEARING LEFT, 03/12/2019, 13:17. [facility], MR, MR FOOT LT WO CON, 01/28/2019, 8:16. FINDINGS: Image quality: Diagnostic. Bones and joints: There is moderate marrow edema identified involving the base of the 2nd metatarsal that extends into the shaft. No fracture lines are evident. There is no dislocation. Previously noted marrow edema involving the base of the 4th metatarsal has nearly completely resolved. Only minimal residual marrow edema is evident within the subarticular region of the 4th metatarsal base, which may represent scarring or residual marrow edema. Moderate diffuse marrow edema is also present involving the adjacent middle cuneiform. Patchy marrow edema is identified involving the other mid foot and forefoot bones. No additional areas of significant marrow edema are evident. There are no displaced fractures or dislocations. No suspicious osseous lesions are identified. No significant joint effusions are identified. Soft tissues: Mild soft tissue edema is present about the 2nd metatarsal. No drainable or loculated fluid collections are evident. There are no soft tissue masses. The flexor and extensor tendons of the forefoot appear to be within normal limits. No significant atrophy of the intrinsic muscles of the foot are appreciated. IMPRESSION: 1. New 2nd metatarsal stress fracture. There likely is also an adjacent stress fracture or stress reaction involving the middle cuneiform. 2. Previous 4th metatarsal stress fracture is largely healed and resolved in the interim. 3. Patchy additional areas of marrow edema likely represents stress reaction of the midfoot and forefoot bones. No displaced fractures are present. Dictated by: Greg Dean M.D. on 04/21/2019 at 9:14 Approved by: Greg Dean M.D. on 04/21/2019 at 9:21
[2019-04-21 09:16] LABS: BUN Creatinine Ratio 25.7 (6-22); Blood Urea Nitrogen 18 mg/dL (7-17); Calcium 9.5 mg/dL (8.4-10.2); Carbon Dioxide 32 mmol/L (22-32); Chloride 100 mmol/L (98-107); Estimated Glomerular Filt Rate > 60.0 mL/min (>60); Glucose 86 mg/dL (80-110); HEMOLYSIS < 15 (0-50); Potassium 4.2 mmol/L (3.4-5.1); Sodium 141 mmol/L (137-145)
== END ==
PROVIDERS: PCP Family Medicine; Visit Provider Orthopaedic Surgery Foot and Ankle Surgery
DX: S92.322A Displaced fracture of second metatarsal bone, left foot, initial encounter for closed fracture (principal); M81.0 Age-related osteoporosis without current pathological fracture
CPT/HCPCS: 36415; 73718; 80048

== ENCOUNTER 2019-05-22 21:01 | Emergency (ER) | payer MEDICARE, OTHER, SELFPAY ==
[2019-05-22 21:05] VITALS: BP 158/94; PULSE 76; RESP 14; TEMP 36.3; O2SAT 96; BMI 24.8
--- NOTE | 2019-05-22 21:08 | DI.RAD.S_ITS ---
PROCEDURE: XR ANKLE RT MIN 3V INDICATIONS: rolled ankle TECHNIQUE: 3 views of the ankle were acquired. COMPARISON: [facility] [place], CR, XR FOOT 3 VIEWS WEIGHT BEARING LEFT, 03/12/2019, 13:17. [facility], CR, ANKLE 3 VIEWS RIGHT, 10/22/2008, 16:51. FINDINGS: Bones: A moderately displaced fracture can be seen the base of the 5th metatarsal. There is a mildly displaced intra-articular fracture seen involving the distal aspect of the lateral malleolus. This is the same fraction at has been previously seen, including in 2008. The ankle mortise does not appear widened. The talar dome demonstrates no emilee abnormality. Soft tissues: Soft tissue swelling is seen laterally. IMPRESSION: Moderately displaced 5th metatarsal base fracture. Soft tissue swelling is seen laterally. There is a fracture line seen involving the distal lateral malleolus, which is most likely related to the known, prior fracture. However, differential diagnosis includes an acute fracture at the same site. Please correlate with focal tenderness. Dictated by: Daron Tovar M.D. on 05/22/2019 at 21:29 Approved by: Daron Tovar M.D. on 05/22/2019 at 21:33
--- NOTE | 2019-05-22 21:53 | ED_ITS ---
HPI - Extremity Injury (Lower) General Chief Complaint: Extremity Injury, Lower Stated Complaint: FALL RIGHT ANKLE INJURY Time Seen by Provider: 05/22/19 21:43 Source: patient Mode of arrival: Wheelchair Limitations: no limitations History of Present Illness HPI Narrative: Patient is a 64-year-old female here for evaluation of right ankle injury. Patient states that prior to arrival she was walking around to the door of her car when she stepped off the edge of the pavement rolling her ankle. She states that she has had pain and difficulty walking since then. No other reported injuries from the event. Related Data Home Medications Medication Instructions Recorded Confirmed buspirone 2 tab PO QPM 09/17/18 09/17/18 ibuprofen 400 mg PO Q4-6H PRN 09/17/18 09/17/18 zoledronic pnaz-pdxsqvle-ohzul 5 5 mg IV ONCE ml 03/25/19 03/25/19 mg/100 mL in mannitol 5 %-water intravenous piggybck Previous Rx's Medication Instructions Recorded bupropion HCl 300 mg 24 hr tablet, 300 mg PO QDAY #90 tab 04/08/18 extended release fluticasone propionate 50 1 spray INTRANASAL BID #16 gm 04/08/18 mcg/actuation nasal spray,suspension hydrochlorothiazide 25 mg tablet 25 mg PO QDAY #90 tab 04/08/18 lisinopril 20 mg tablet 20 mg PO Q DAY #90 tab 04/08/18 ranitidine HCl 150 mg tablet 150 mg PO QDAY #180 tab 04/08/18 simvastatin 20 mg tablet 20 mg PO HS #90 tab 04/08/18 topiramate 25 mg sprinkle capsule 25 mg PO QDAY #90 cap 06/10/18 oxycodone 5 mg PO Q4-6H PRN #20 tab 09/17/18 trazodone 50 mg tablet 50 mg PO HSP PRN #90 tab 12/22/18 Allergies Allergy/AdvReac Type Severity Reaction Status Date / Time Sulfa (Sulfonamide Allergy Severe Anaphylaxis Verified 05/22/19 21:09 Antibiotics) Penicillins [PENICILLINS] Allergy Unknown Hives Verified 05/22/19 21:09 Review of Systems Constitutional Constitutional: Denies fever(s) Cardiovascular Cardiovascular: Denies chest pain and Denies dyspnea Respiratory Respiratory: Denies dyspnea Musculoskeletal Musculoskeletal: Denies tingling Comments: Right ankle injury Integumentary/Breasts Skin/Breast: Denies rash Neurologic Neurologic: Denies tingling and Denies paresthesias Hematologic/Lymphatic Hematologic/Lymphatic: Denies easy bleeding and Denies easy bruising Allergic/Immunologic Allergic/Immunologic: Denies urticaria [facility] Medical History ADHD (attention deficit hyperactivity disorder) (Chronic) Anxiety (Chronic 1984) Chicken pox (Resolved) Chronic cough (Chronic ~1998) Chronic headaches (Chronic ~1979) Depression (Chronic 1984) Esophageal ring (Resolved 2001) Esophageal web (Resolved 2001) GERD (gastroesophageal reflux disease) (Chronic) Herpes (Chronic 1979) Measles (Resolved) Migraines (Chronic ~1979) Restrictive lung disease (Acute) Social History marital status: number of children: 1 household members: spouse education level: college occupational status: employed Smoking Status: Never smoker alcohol intake: current substance use type: does not use Exam Initial Vital Signs Initial Vital Signs: Vital Signs Temperature 97.4 F L 05/22/19 21:05 Pulse Rate 76 05/22/19 21:05 Respiratory Rate 14 05/22/19 21:05 Blood Pressure 158/94 H 05/22/19 21:05 Pulse Oximetry 96 05/22/19 21:05 Const General: cooperative, comfortable and well developed Orientation: alert, awake and oriented x3 HENMT Head: normal to inspection and normocephalic Resp Effort & Inspection: normal respiratory effort Cardio Pulses: dorsalis pedis present on the right Skin Lesions: no lesions Rashes: no rashes Neuro General: alert and awake Cognition: normal cognition Speech: speech normal Extrem Other: No proximal fibula tenderness. Does have tenderness to palpation along the distal lateral malleolus and also the base of the 5th metatarsal. No medial malleolar tenderness. Achilles tendon unremarkable. Rest of her right foot unremarkable. Procedures Orthopedic Splinting/Casting Injury #1: Side: right Lower Extremity Injury Location: ankle Lower Extremity Immobilizer: boot orthosis Post splinting neuro exam: intact and no change Post splinting vascular exam: no change Placed by: Nursing Course Orders Ordered: ED Orders 05/22/19 21:08 XR ankle RT min 3V Stat Vital Signs Vital signs: Vital Signs - 8 hr 09/20/19 22:20 Pulse Rate 65 Respiratory Rate 16 Blood Pressure [Left Arm] 128/83 Pulse Oximetry 98 MDM - Extremity Injury (Lower) Imaging Data X-ray ankle: Radiologist's impression: [address] [address] XRay Report Signed Patient: Claudette Vaughn JMR#: [id number] : 3Acct:[id number] Age/Sex: 64 / FDate of Service: 05/22/19 Loc: ED Accession Number: [id number] Procedure: XR ankle RT min 3V Ordering Provider: Alex Dumont D.O. PROCEDURE: XR ANKLE RT MIN 3V INDICATIONS: rolled ankle TECHNIQUE: 3 views of the ankle were acquired. COMPARISON: [facility], CR, XR FOOT 3 VIEWS WEIGHT BEARING LEFT, 03/12/2019, 13:17. [facility], CR, ANKLE 3 VIEWS RIGHT, 10/22/2008, 16:51. FINDINGS: Bones: A moderately displaced fracture can be seen the base of the 5th metatarsal. There is a mildly displaced intra-articular fracture seen involving the distal aspect of the lateral malleolus. This is the same fraction at has been previously seen, including in 2008. The ankle mortise does not appear widened. The talar dome demonstrates no emilee abnormality. Soft tissues: Soft tissue swelling is seen laterally. IMPRESSION: Moderately displaced 5th metatarsal base fracture. Soft tissue swelling is seen laterally. There is a fracture line seen involving the distal lateral malleolus, which is most likely related to the known, prior fracture. However, differential diagnosis includes an acute fracture at the same site. Please correlate with focal tenderness. Dictated by: Daron Tovar M.D. on 05/22/2019 at 21:29 Approved by: Daron Tovar M.D. on 05/22/2019 at 21:33 [facility] Narrative Medical decision making narrative: Patient's physical exam is consistent with the findings on the x-ray. She does have tenderness palpation along the lateral malleolus and also the base of the 5th metatarsal. She was placed in a walking boot. She is otherwise neurovascularly intact. She has her own crutches. We discussed return precautions and follow-up instructions. She expressed understanding and agreement with plan. Discharge Plan Departure Patient Disposition: Home Clinical Impression: Fracture of distal end of fibula Qualifiers: Encounter type: initial encounter Fracture type: closed Fracture morphology: unspecified fracture morphology Laterality: right Qualified Code(s): S82.831A - Other fracture of upper and lower end of right fibula, initial encounter for michelle sed fracture Metatarsal fracture Qualifiers: Encounter type: initial encounter Metatarsal bone: fifth Fracture type: closed Fracture alignment: nondisplaced Laterality: right Qualified Code(s): S92.354A - Nondisplaced fracture of fifth metatarsal bone, right foot, initial encounter for closed fracture Discharge Date/Time: 05/22/19 22:41 Instructions: DI for Ankle Fracture, How to Use a Walking Boot Activity Restrictions/Additional Instructions: Use the walking boot and the crutches as needed for your comfort. Keep your foot iced like we discussed on Saturday contact your primary provider and also the orthopedic group for follow-up. Return to the emergency department for any new or worsening symptoms Prescriptions: No Action zoledronic ikfk-xrctcmdw-blxdk [Reclast] 5 mg/100 mL piggyback 5 mg IV ONCE RF: 0 bupropion HCl 300 mg tablet extended release 24 hr 300 mg PO QDAY Qty: 90 RF: 3 fluticasone propionate 50 mcg/actuation spray,suspension 1 spray Intranasal BID Qty: 16 RF: 3 hydrochlorothiazide 25 mg tablet 25 mg PO QDAY Qty: 90 RF: 3 lisinopril [Prinivil] 20 mg tablet 20 mg PO Q DAY Qty: 90 RF: 3 ranitidine HCl 150 mg tablet 150 mg PO QDAY Qty: 180 RF: 3 simvastatin 20 mg tablet 20 mg PO HS Qty: 90 RF: 3 topiramate [Topamax] 25 mg capsule, sprinkle 25 mg PO QDAY Qty: 90 RF: 3 trazodone 50 mg tablet 50 mg PO HSP PRN (Reason: insomnia) Qty: 90 RF: 1 buspirone 10 mg tablet 2 tab PO QPM RF: 0 ibuprofen 200 mg Tablet 400 mg PO Q4-6H PRN (Reason: Pain (Scale Score 4-6)) RF: 0 oxycodone 5 mg tablet 5 mg PO Q4-6H PRN (Reason: pain) Qty: 20 RF: 0 Referrals: Una Flaherty DO [Primary Care Provider] -
[2019-05-22 22:20] VITALS: BP 128/83; PULSE 65; RESP 16; O2SAT 98
== END 2019-05-22 22:41 | disposition home or self-care (01) ==
PROVIDERS: Emergency Provider Emergency Medicine; PCP Family Medicine
DX: S82.831A Other fracture of upper and lower end of right fibula, initial encounter for closed fracture (principal); S92.354A Nondisplaced fracture of fifth metatarsal bone, right foot, initial encounter for closed fracture
CPT/HCPCS: 29550; 73610; 99283

== ENCOUNTER 2020-04-03 17:11 | Emergency (ER) | payer MEDICARE, OTHER, SELFPAY ==
[2020-04-03 17:16] VITALS: BP 163/91; PULSE 89; RESP 18; TEMP 36.8; O2SAT 98; BMI 25.2
[2020-04-03 17:42] LABS: Bacteria Urine None Seen; RBC Urine None Seen (0-5/HPF); WBC Urine None Seen (0-5/HPF)
[2020-04-03 17:50] LABS: Culture Indicated Urine Cult Not Indicated; Urine Comments Microscopic Normal
--- NOTE | 2020-04-03 18:09 | ED_ITS ---
HPI - Back Pain/Injury General Chief Complaint: Back Pain/Injury Stated Complaint: Lower Back Pain Time Seen by Provider: 04/03/20 18:08 Source: patient Mode of arrival: Ambulatory Limitations: no limitations History of Present Illness HPI Narrative: 65F non smoker with history of hypertension and GERD presents with the chief complaint of left flank pain for the better part of a week. It is usually worse with movement and better with rest. She denies any radiation of her pain. She's had no problems with control of bowel or bladder. She denies any lower extremity numbness, tingling or weakness. She denies dysuria, frequency or urgency. She denies using blood thinners. She denies any significant or obvious injury. She has been doing a significant amount of lifting at work lately. Related Data Home Medications Medication Instructions Recorded Confirmed ibuprofen 400 mg PO Q4-6H PRN 09/17/18 09/17/18 zoledronic foka-szdnulxa-rrpco 5 5 mg IV ONCE ml 03/25/19 03/25/19 mg/100 mL in mannitol 5 %-water intravenous piggybck Previous Rx's Medication Instructions Recorded topiramate 25 mg sprinkle capsule 25 mg PO QDAY #90 cap 06/10/18 oxycodone 5 mg PO Q4-6H PRN #20 tab 09/17/18 bupropion HCl 300 mg 24 hr tablet, See Rx Instructions .ROUTE 06/12/19 extended release .COMPLEX #90 tablet hydrochlorothiazide 25 mg tablet See Rx Instructions .ROUTE 06/12/19 .COMPLEX #90 tablet lisinopril 20 mg tablet See Rx Instructions .ROUTE 06/12/19 .COMPLEX #90 tablet simvastatin 20 mg tablet See Rx Instructions .ROUTE 06/12/19 .COMPLEX #90 tablet fluticasone propionate 50 1 spray INTRANASAL BID #16 gm 11/13/19 mcg/actuation nasal spray,suspension omeprazole 40 mg capsule,delayed 40 mg PO BID #60 cap 01/06/20 release albuterol sulfate 90 mcg/actuation 2 puff INHALATION Q4-6H PRN #18 01/07/20 aerosol inhaler gram buspirone 10 mg tablet 10 mg PO BID #60 tab 01/26/20 trazodone 50 mg tablet See Rx Instructions .ROUTE 03/11/20 .COMPLEX #90 tab cyclobenzaprine 10 mg PO TID PRN #14 tab 04/03/20 ketorolac 10 mg PO Q6H PRN #14 tab 04/03/20 Allergies Allergy/AdvReac Type Severity Reaction Status Date / Time Sulfa (Sulfonamide Allergy Severe Anaphylaxis Verified 04/03/20 17:24 Antibiotics) Penicillins [PENICILLINS] Allergy Unknown Hives Verified 04/03/20 17:24 levofloxacin AdvReac Severe sore Verified 04/03/20 17:24 achilles tendon for 3 mos. Review of Systems Constitutional Constitutional: Denies chills, Denies fatigue, Denies fever(s), Denies frequent falls, Denies lethargy and Denies weakness Eyes Eyes: Denies change in vision, Denies eye discharge, Denies irritation and Denies loss of vision ENT Ears, Nose, Mouth, and Throat: Denies change in voice, Denies dizziness, Denies neck pain, Denies sore throat and Denies throat swelling Cardiovascular Cardiovascular: Denies chest pain, Denies irregular heart rhythm, Denies lightheadedness, Denies palpitations, Denies dyspnea, Denies dyspnea on exertion and Denies orthopnea Respiratory Respiratory: Denies cough, Denies dyspnea, Denies dyspnea on exertion and Denies wheezing Gastrointestinal Gastrointestinal: Denies abdominal pain, Denies change in bowel habits, Denies diarrhea, Denies nausea and Denies vomiting Musculoskeletal Musculoskeletal: Reports back pain, Denies neck pain and Denies numbness Integumentary/Breasts Skin/Breast: Denies pruritus, Denies erythema, Denies rash and Denies wounds Neurologic Neurologic: Denies behavioral changes, Denies confusion, Denies dizziness, Denies frequent falls, Denies loss of vision, Denies numbness and Denies weakness Psychiatric Psychiatric: Denies anxiety, Denies behavioral changes, Denies confusion, Denies depression, Denies homicidal ideation and Denies suicidal ideation Endocrine Endocrine: Denies fatigue, Denies flushing and Denies palpitations Hematologic/Lymphatic Hematologic/Lymphatic: Denies easy bruising Allergic/Immunologic Allergic/Immunologic: Denies urticaria, Denies throat swelling and Denies wheezing Patient History Medical History ADHD (attention deficit hyperactivity disorder) (Chronic) Anxiety (Chronic 1984) Chicken pox (Resolved) Chronic cough (Chronic ~1998) Chronic headaches (Chronic ~1979) Depression (Chronic 1984) Esophageal ring (Resolved 2001) Esophageal web (Resolved 2001) GERD (gastroesophageal reflux disease) (Chronic) Herpes (Chronic 1979) Measles (Resolved) Migraines (Chronic ~1979) Restrictive lung disease (Acute) Surgical History Anesthesia complication (Resolved) History of Hernan fundoplication (Resolved) History of repair of hiatal hernia (Resolved 1997) Status post appendectomy (Resolved 1969) Status post delivery (Resolved 1987) Status post endoscopy (Resolved 1998) Status post hysterectomy (Resolved 1997) Status post laparoscopy (Resolved 1985) Status post wrist surgery (Resolved 1989) Family History Father Heart disease Mother Age: 99 PAD (peripheral artery disease) Heart disease Hypertension Sister Hypertension Social History marital status: number of children: 1 household members: spouse education level: college occupational status: employed Smoking Status: Never smoker alcohol intake: current substance use type: does not use Smoking Status: Never smoker alcohol intake frequency: 0-2 drinks per day Alcohol type: wine and hard liquor Substance Use Type: does not use Exam Narrative Exam Narrative: GENERAL: [65] year old patient appears stated age. Well- nourished, well-developed patient, in mild distress. HEAD: Atraumatic. Normocephalic. EYES: Pupils equal round and reactive. Extraocular motions intact. No scleral icterus. No injection or drainage. ENT: Nose without bleeding, purulent drainage. Throat without erythema, tonsillar hypertrophy or exudate. Airway patent. NECK: Trachea midline. Non tender CARDIOVASCULAR: Regular rate and rhythm without murmurs, gallops, or rubs. RESPIRATORY: Clear to auscultation. Breath sounds equal bilaterally. No wheezes, rales, or rhonchi. GASTROINTESTINAL: Abdomen soft, non-tender, nondistended. EXTREMITIES: No edema or joint tenderness. 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 Patient exam notes decreased range of motion and muscle spasm, but no CVA tenderness, or vertebral point tenderness. There are no symptoms of cauda equina such as saddle anesthesia, and decreased reflexes, decreased sensation or strength. NEURO: AOx3. SKIN: No rash or erythema of visible areas Initial Vital Signs Initial Vital Signs: Vital Signs Temperature 98.2 F 04/03/20 17:16 Pulse Rate 89 04/03/20 17:16 Respiratory Rate 18 04/03/20 17:16 Blood Pressure 163/91 H 04/03/20 17:16 Pulse Oximetry 98 04/03/20 17:16 Course Orders Ordered: ED Orders 04/03/20 18:10 Basic Metabolic Panel Stat Complete Blood Count AUTO DIFF Stat 04/03/20 19:01 CT kidney ureter bladder (KUB) Stat Discontinued Medications Cyclobenzaprine HCl (Flexeril 10 Mg Prepack) 1 bottle MISC SEEINSTR ONE Stop: 04/03/20 21:29 Last Admin: 04/03/20 21:46 Dose: 1 bottle Documented by: BERNADINE Ketorolac Tromethamine (Toradol) 30 mg IM NOW ONE Stop: 04/03/20 19:02 Last Admin: 04/03/20 19:06 Dose: 30 mg Documented by: BERNADINE Lidocaine (Lidoderm) 1 each TOP DAILY [facility] Lidocaine (Lidoderm) 1 each TOP NOW ONE Stop: 04/03/20 21:45 Last Admin: 04/03/20 21:48 Dose: 1 each Documented by: BERNADINE Vital Signs Vital signs: Vital Signs - 8 hr 04/03/20 21:34 Pulse Rate 85 Blood Pressure 176/68 H Pulse Oximetry 95 MDM - Back Pain/Injury Lab Data Result diagrams: 04/03/20 18:10 04/03/20 18:10 Labs: Lab Results 04/03/20 04/03/20 04/03/20 Range/Units 17:30 18:10 18:10 WBC 5.5 (4.5-11.0) X10^3/uL RBC 4.20 (4.0-5.2) X10^6/uL Hgb 13.0 (12.0-16.0) g/dL Hct 38.5 (36-46) % MCV 91.6 (80-100) fL MCH 31.0 (26-34) PG MCHC 33.9 (30-36) % RDW 12.8 (11.6-14.8) % Plt Count 219 (150-400) X10^3/uL Neut % (Auto) 57.7 (50-75) % Lymph % (Auto) 32.6 (25-40) % [place] % (Auto) 6.4 (3-14) % Eos % (Auto) 2.9 (2-4) % Baso % (Auto) 0.4 (0-2) % Neut # (Auto) 3100 (5674-1884) /uL Lymph # (Auto) 1800 (7159-7058) /uL [place]er # (Auto) 300 (0-900) /uL Eos # (Auto) 200 (0-450) /uL Baso # (Auto) 0 (0-100) /uL Sodium 138 (137-145) mmol/L Potassium 3.4 (3.4-5.1) mmol/L Chloride 104 (98-107) mmol/L Carbon Dioxide 30 (22-32) mmol/L BUN 27 H (7-17) mg/dL Creatinine 0.63 (0.52-1.04) mg/dL Estimated GFR > 60.0 (>60) mL/min BUN/Creatinine Ratio 42.9 H (6-22) Glucose 99 (80-110) mg/dL Calcium 9.6 (8.4-10.2) mg/dL Urine RBC None seen (0-5/HPF) Urine WBC None seen (0-5/HPF) Urine Bacteria None seen (None) Ur Culture Indicated? Cult not indicated Micro UA Comment Microscopic normal Urine Dip Bedside Urine Glucose Negative Bedside Urine Bilirubin - Negative Bedside Urine Ketone - Negative Urine Specific [place] 1.030 Bedside Urine Occult Blood - Negative Bedside Urine pH 6.0 Bedside Urine Protein +/- 15 Bedside Urine Urobilinogen +/- 1mg Bedside Urine Nitrite - Negative Bedside Urine Leukocytes - Negative Esterase Imaging Data CT scan - abdomen/pelvis: Radiologist's Impression: Claudette Vaughn 65 F [address] [address] [address] Scan Report Signed Patient: DariodineshClaudette JMR#: [id number] : [id number]:[id number] Age/Sex: 65 / FDate of Service: 04/03/20 Loc: ED Accession Number: [id number] Procedure: CT kidney ureter bladder (KUB) Ordering Provider: Nicholas Lieberman D.O. PROCEDURE: CT KIDNEY URETER BLADDER (KUB) INDICATIONS: severe L flank pain TECHNIQUE: Noncontrast 5 mm thick sections acquired from the diaphragms to the symphysis. 5 mm thick coronal and sagittal reformats were then performed. For radiation dose reduction, the following was used: automated exposure control, adjustment of mA and/or kV according to patient size. COMPARISON: None. FINDINGS: Image quality: Excellent. Lung bases: Lung bases are clear. Heart size is normal. There is a small to moderate-sized hiatal hernia behind the heart. Urinary system: Both kidneys are normal in size. No kidney stones. No hydronephrosis or perinephric fat stranding. Both ureters appear non-dilated throughout their expected courses. Bladder wall thickness is normal; no calcified bladder stones. Other solid organs: Liver is normal in size. Gallbladder contains a 2.5 cm gallstone without evidence of acute cholecystitis or biliary obstruction. Pancreas is normal in contours. Spleen is normal in size. No adrenal nodules. Peritoneum and bowel: Unenhanced bowel loops demonstrate normal wall thickness and caliber. No free fluid or air. Moderate right colonic obstipation is present. Nodes and vessels: No retroperitoneal or mesenteric adenopathy by size criteria. Aorta and inferior vena cava are normal in caliber. Abdominal wall: No ventral hernias. Pelvis: No free pelvic fluid. No inguinal hernias or adenopathy. Bones: No suspicious bony lesions. No vertebral body compression fractures. IMPRESSION: A urinary tract stone is not found but there is a 2.5 cm gallstone within the gallbladder lumen without evidence of acute cholecystitis or biliary obst ruction. No urinary tract inflammation is seen. Asymmetric right-sided colonic obstipation. No sign of intestinal obstruction or perforation. Dictated by: Cristobal Ramos M.D. on 04/03/2020 at 19:43 Approved by: Cristobal Ramos M.D. on 04/03/2020 at 19:47 MDM Narrative Medical decision making narrative: Multiple etiologies for patient's symptoms considered including: [Kidney stone versus pyelonephritis versus musculoskeletal versus other] Patient's symptoms improved over duration of stay with above-stated therapies. Findings and discharge diagnosis discussed with patient/family followed by verbalization of understanding Return precautions discussed with patient/family whom verbalize understanding. Discharge Plan Departure Patient Disposition: Home Clinical Impression: Acute low back pain Discharge Date/Time: 04/03/20 21:52 Instructions: DI for Back Spasm Activity Restrictions/Additional Instructions: *You have been diagnosed with [ left flank pain ] *What to do: *Take medications as directed *Follow up with your primary care provider in 2-3 days, call for an appointment. Let them know you were seen in the Emergency Department and that we ask that you be seen in follow up *Return to ER if you should have any new, worsening or concerning symptoms, such as [ ] Prescriptions: New cyclobenzaprine 10 mg tablet 10 mg PO TID PRN (Reason: muscle spasm) Qty: 14 RF: 0 ketorolac 10 mg tablet 10 mg PO Q6H PRN (Reason: pain) Qty: 14 RF: 0 No Action fluticasone propionate 50 mcg/actuation spray,suspension 1 spray Intranasal BID Qty: 16 RF: 3 zoledronic coel-[id number]-[id number] [Reclast] 5 mg/100 mL piggyback 5 mg IV ONCE RF: 0 topiramate [Topamax] 25 mg capsule, sprinkle 25 mg PO QDAY Qty: 90 RF: 3 hydrochlorothiazide 25 mg tablet See Rx Instructions .ROUTE .COMPLEX Qty: 90 RF: 2 bupropion HCl 300 mg tablet extended release 24 hr See Rx Instructions .ROUTE .COMPLEX Qty: 90 RF: 2 lisinopril 20 mg tablet See Rx Instructions .ROUTE .COMPLEX Qty: 90 RF: 2 simvastatin 20 mg tablet See Rx Instructions .ROUTE .COMPLEX Qty: 90 RF: 2 omeprazole 40 mg capsule,delayed release(DR/EC) 40 mg PO BID Qty: 60 RF: 3 albuterol sulfate 90 mcg/actuation HFA aerosol inhaler 2 puff INHALATION Q4-6H PRN (Reason: shortness of breath or wheezing) Qty: 18 RF: 0 buspirone 10 mg tablet 10 mg PO BID Qty: 60 RF: 3 trazodone 50 mg tablet See Rx Instructions .ROUTE .COMPLEX Qty: 90 RF: 0 ibuprofen 200 mg Tablet 400 mg PO Q4-6H PRN (Reason: Pain (Scale Score 4-6)) RF: 0 oxycodone 5 mg tablet 5 mg PO Q4-6H PRN (Reason: pain) Qty: 20 RF: 0 Referrals: Una Flaherty, [Primary Care Provider] -
--- NOTE | 2020-04-03 19:01 | DI.CT.S_ITS ---
PROCEDURE: CT KIDNEY URETER BLADDER (KUB) INDICATIONS: severe L flank pain TECHNIQUE: Noncontrast 5 mm thick sections acquired from the diaphragms to the symphysis. 5 mm thick coronal and sagittal reformats were then performed. For radiation dose reduction, the following was used: automated exposure control, adjustment of mA and/or kV according to patient size. COMPARISON: None. FINDINGS: Image quality: Excellent. Lung bases: Lung bases are clear. Heart size is normal. There is a small to moderate-sized hiatal hernia behind the heart. Urinary system: Both kidneys are normal in size. No kidney stones. No hydronephrosis or perinephric fat stranding. Both ureters appear non-dilated throughout their expected courses. Bladder wall thickness is normal; no calcified bladder stones. Other solid organs: Liver is normal in size. Gallbladder contains a 2.5 cm gallstone without evidence of acute cholecystitis or biliary obstruction. Pancreas is normal in contours. Spleen is normal in size. No adrenal nodules. Peritoneum and bowel: Unenhanced bowel loops demonstrate normal wall thickness and caliber. No free fluid or air. Moderate right colonic obstipation is present. Nodes and vessels: No retroperitoneal or mesenteric adenopathy by size criteria. Aorta and inferior vena cava are normal in caliber. Abdominal wall: No ventral hernias. Pelvis: No free pelvic fluid. No inguinal hernias or adenopathy. Bones: No suspicious bony lesions. No vertebral body compression fractures. IMPRESSION: A urinary tract stone is not found but there is a 2.5 cm gallstone within the gallbladder lumen without evidence of acute cholecystitis or biliary obstruction. No urinary tract inflammation is seen. Asymmetric right-sided colonic obstipation. No sign of intestinal obstruction or perforation. Dictated by: Cristobal Ramos M.D. on 04/03/2020 at 19:43 Approved by: Cristobal Ramos M.D. on 04/03/2020 at 19:47
[2020-04-03] MEDS: KETOROLAC 60 MG/2 ML VIAL 30 MG IM (19:06)
[2020-04-03 19:18] LABS: Add Manual Diff / Slide Review NO; Basophils Absolute Auto 0 /uL (0-100); Basophils Percent Auto 0.4 % (0-2); Eosinophils Absolute Auto 200 /uL (0-450); Eosinophils Percent Auto 2.9 % (2-4); Hematocrit 38.5 % (36-46); Lymphocytes Absolute Auto 1800 /uL (1100-4500); Lymphocytes Percent Auto 32.6 % (25-40); Mean Corpuscular HGB Conc 33.9 % (30-36); Mean Corpuscular Volume 91.6 fL (80-100); Monocytes Absolute Auto 300 /uL (0-900); Monocytes Percent Auto 6.4 % (3-14); Neutrophils Absolute Auto 3100 /uL (1500-7000); Neutrophils Percent Auto 57.7 % (50-75); Platelet Count 219 X10^3/uL (150-400); Red Cell Distribution Width 12.8 % (11.6-14.8); White Blood Cell Count 5.5 X10^3/uL (4.5-11.0)
[2020-04-03 19:30] LABS: BUN Creatinine Ratio 42.9 (6-22); Blood Urea Nitrogen 27 mg/dL (7-17); Calcium 9.6 mg/dL (8.4-10.2); Carbon Dioxide 30 mmol/L (22-32); Chloride 104 mmol/L (98-107); Estimated Glomerular Filt Rate > 60.0 mL/min (>60); Glucose 99 mg/dL (80-110); HEMOLYSIS < 15 (0-50); Potassium 3.4 mmol/L (3.4-5.1); Sodium 138 mmol/L (137-145)
[2020-04-03 21:34] VITALS: BP 176/68; PULSE 85; O2SAT 95
[2020-04-03] MEDS: CYCLOBENZAPRINE 10 MG PREPACK 1 BOTTLE MISC (21:46)
[2020-04-03] MEDS: LIDOCAINE PATCH 1 EACH ADH..PATCH TOP (21:48)
== END 2020-04-03 21:52 | disposition home or self-care (01) ==
PROVIDERS: Emergency Medicine; Emergency Provider Emergency Medicine; PCP Family Medicine
DX: M54.5 Low back pain (principal)
CPT/HCPCS: 74176; 80048; 81003; 81015; 85025; 96372; 99283; 99284; J1885

== ENCOUNTER 2020-05-16 16:05 | Observation (INO) | payer MEDICARE, OTHER, SELFPAY ==
[2020-05-16] VITALS (19 sets, daily range): BP systolic 139–197; BP diastolic 94–113; PULSE 72–103; RESP 12–24; TEMP 36–36.8; O2SAT 91–100; BMI 24.8
--- NOTE | 2020-05-16 16:17 | ED.NECK ---
HPI - Neck Pain/Injury General Chief Complaint: Nausea/Vomiting/Diarrhea Stated Complaint: SOMETHING IS STUCK IN THROAT Time Seen by Provider: 05/16/20 16:16 Source: patient Mode of arrival: Ambulatory Limitations: no limitations History of Present Illness HPI Narrative: About 1 hour prior to arrival the patient was making a casserole. She had finally ground hamburger, she had a bite. She feels like the media is stuck. She is feeling the pain in her midback. She has vomited phlegm. The pain is ongoing. She has no dyspnea. She has no chest pain. She has no abdominal pain. He has a prior history of similar situations, she has always been will get through the situations. She has a history of GERD. She has a history of Jerod fundoplication many years ago. She indicates she has experience worsening discomfort with the GERD. She has never required endoscopy for an esophageal foreign body. Related Data Home Medications Medication Instructions Recorded Confirmed ibuprofen 400 mg PO Q4-6H PRN 09/17/18 09/17/18 zoledronic krzw-mysrlfah-onlfh 5 5 mg IV ONCE ml 03/25/19 03/25/19 mg/100 mL in mannitol 5 %-water intravenous piggybck Previous Rx's Medication Instructions Recorded topiramate 25 mg sprinkle capsule 25 mg PO QDAY #90 cap 06/10/18 oxycodone 5 mg PO Q4-6H PRN #20 tab 09/17/18 bupropion HCl 300 mg 24 hr tablet, See Rx Instructions .ROUTE 06/12/19 extended release .COMPLEX #90 tablet hydrochlorothiazide 25 mg tablet See Rx Instructions .ROUTE 06/12/19 .COMPLEX #90 tablet lisinopril 20 mg tablet See Rx Instructions .ROUTE 06/12/19 .COMPLEX #90 tablet simvastatin 20 mg tablet See Rx Instructions .ROUTE 06/12/19 .COMPLEX #90 tablet fluticasone propionate 50 1 spray INTRANASAL BID #16 gm 11/13/19 mcg/actuation nasal spray,suspension omeprazole 40 mg capsule,delayed 40 mg PO BID #60 cap 01/06/20 release albuterol sulfate 90 mcg/actuation 2 puff INHALATION Q4-6H PRN #18 01/07/20 aerosol inhaler gram buspirone 10 mg tablet 10 mg PO BID #60 tab 01/26/20 trazodone 50 mg tablet See Rx Instructions .ROUTE 03/11/20 .COMPLEX #90 tab cyclobenzaprine 10 mg PO TID PRN #14 tab 04/03/20 ketorolac 10 mg PO Q6H PRN #14 tab 04/03/20 Allergies Allergy/AdvReac Type Severity Reaction Status Date / Time Sulfa (Sulfonamide Allergy Severe Anaphylaxis Verified 05/16/20 16:21 Antibiotics) Penicillins [PENICILLINS] Allergy Unknown Hives Verified 05/16/20 16:21 levofloxacin AdvReac Severe sore Verified 05/16/20 16:21 achilles tendon for 3 mos. Review of Systems Constitutional Constitutional: Denies chills, Denies fever(s) and Denies headache(s) ENT Ears, Nose, Mouth, and Throat: Denies headache(s) Comments: No sore throat. See HPI. Cardiovascular Cardiovascular: Denies chest pain, Denies irregular heart rhythm, Denies lightheadedness, Denies dyspnea and Denies dyspnea on exertion Respiratory Respiratory: Denies cough, Denies dyspnea, Denies dyspnea on exertion and Denies wheezing Gastrointestinal Gastrointestinal: Denies abdominal pain, Denies diarrhea, Denies nausea and Denies vomiting Musculoskeletal Comments: Back pain as noted in HPI Neurologic Neurologic: Denies headache(s) Allergic/Immunologic Allergic/Immunologic: Denies wheezing Patient History Medical History ADHD (attention deficit hyperactivity disorder) (Chronic) Anxiety (Chronic 1984) Chicken pox (Resolved) Chronic cough (Chronic ~1998) Chronic headaches (Chronic ~1979) Depression (Chronic 1984) Esophageal ring (Resolved 2001) Esophageal web (Resolved 2001) GERD (gastroesophageal reflux disease) (Chronic) Herpes (Chronic 1979) Measles (Resolved) Migraines (Chronic ~1979) Restrictive lung disease (Acute) Surgical History Anesthesia complication (Resolved) History of Hernan fundoplication (Resolved) History of repair of hiatal hernia (Resolved 1997) Status post appendectomy (Resolved 1969) Status post delivery (Resolved 1987) Status post endoscopy (Resolved 1998) Status post hysterectomy (Resolved 1997) Status post laparoscopy (Resolved 1985) Status post wrist surgery (Resolved 1989) Family History Father Heart disease Mother Age: 99 PAD (peripheral artery disease) Heart disease Hypertension Sister Hypertension Social History marital status: number of children: 1 household members: spouse education level: college occupational status: employed Smoking Status: Never smoker alcohol intake: current substance use type: does not use Smoking Status: Never smoker alcohol intake frequency: 0-2 drinks per day Alcohol type: wine and hard liquor Substance Use Type: does not use Exam Initial Vital Signs Initial Vital Signs: Vital Signs Temperature 98.3 F 05/16/20 16:14 Pulse Rate 78 05/16/20 16:14 Respiratory Rate 14 05/16/20 16:14 Blood Pressure 184/103 H 05/16/20 16:14 Pulse Oximetry 97 05/16/20 16:14 Const General: cooperative and well developed Nutritional Appearance: well nourished HENMD Mouth: oral mucosae normal Throat: posterior oropharynx normal Neck Other: Subtle, nontender. Chest Chest: normal inspection of the chest and normal palpation of entire chest wall Resp Effort & Inspection: normal respiratory effort and able to speak in complete sentences Auscultation: clear to auscultation bilaterally, no rales, no rhonchi and no wheezes Cardio Rate: regular rate Rhythm: regular rhythm Heart Sounds: S1 normal, S2 normal, no click, no gallops, no murmurs and no rubs Pulses: normal peripheral pulses Course Course Course Narrative: The patient was given IV glucagon. We tried her with sips of soda, then sips of water. Initially fluids seem to go down. She then started gagging, bringing up clear phlegm once again. Not all the fluid obviously came back up, but she definitely feels like the foreign body still in place. I discussed the case with surgery, Dr. Phillips. It is noted that she has a prior history of Hernan fundoplication. The patient will be evaluated by surgery for possible EGD. Orders Ordered: ED Orders 05/16/20 16:35 XR chest 1V Stat Discontinued Medications Glucagon (Glucagen) 1 mg IV NOW ONE Stop: 05/16/20 16:29 Last Admin: 05/16/20 16:53 Dose: 1 mg Documented by: DEANA Vital Signs Vital signs: Vital Signs - 8 hr 05/16/20 16:14 Temperature 98.3 F Pulse Rate 78 Respiratory Rate 14 Blood Pressure 184/103 H Pulse Oximetry 97 MDM - Neck Pain/Injury Imaging Data Chest x-ray: Radiologist's Impression: Normal Discharge Plan Departure Patient Disposition: Admitted to Surgery Prescriptions: No Action fluticasone propionate 50 mcg/actuation spray,suspension 1 spray Intranasal BID Qty: 16 RF: 3 zoledronic mlks-[id number]-ptvmd [Reclast] 5 mg/100 mL piggyback 5 mg IV ONCE RF: 0 topiramate [Topamax] 25 mg capsule, sprinkle 25 mg PO QDAY Qty: 90 RF: 3 hydrochlorothiazide 25 mg tablet See Rx Instructions .ROUTE .COMPLEX Qty: 90 RF: 2 bupropion HCl 300 mg tablet extended release 24 hr See Rx Instructions .ROUTE .COMPLEX Qty: 90 RF: 2 lisinopril 20 mg tablet See Rx Instructions .ROUTE .COMPLEX Qty: 90 RF: 2 simvastatin 20 mg tablet See Rx Instructions .ROUTE .COMPLEX Qty: 90 RF: 2 omeprazole 40 mg capsule,delayed release(DR/EC) 40 mg PO BID Qty: 60 RF: 3 albuterol sulfate 90 mcg/actuation HFA aerosol inhaler 2 puff INHALATION Q4-6H PRN (Reason: shortness of breath or wheezing) Qty: 18 RF: 0 buspirone 10 mg tablet 10 mg PO BID Qty: 60 RF: 3 trazodone 50 mg tablet See Rx Instructions .ROUTE .COMPLEX Qty: 90 RF: 0 ibuprofen 200 mg Tablet 400 mg PO Q4-6H PRN (Reason: Pain (Scale Score 4-6)) RF: 0 oxycodone 5 mg tablet 5 mg PO Q4-6H PRN (Reason: pain) Qty: 20 RF: 0 cyclobenzaprine 10 mg tablet 10 mg PO TID PRN (Reason: muscle spasm) Qty: 14 RF: 0 ketorolac 10 mg tablet 10 mg PO Q6H PRN (Reason: pain) Qty: 14 RF: 0 Referrals: Una Flaherty DO [Primary Care Provider] -
--- NOTE | 2020-05-16 16:35 | DI.RAD.S_ITS ---
PROCEDURE: XR CHEST 1V INDICATIONS: Brought aspiration/foreign body TECHNIQUE: One view of the chest was acquired. COMPARISON: [facility], CR, XR CHEST 2V, 02/18/2019, 10:27. FINDINGS: Surgical changes and devices: None. Lungs and pleura: Minimal diffuse interstitial prominence. This is likely chronic in etiology. Lungs are otherwise clear. No pleural effusions or pneumothorax. Mediastinum: Mediastinal contours appear normal. Heart size is normal. Bones and chest wall: No suspicious bony lesions. Overlying soft tissues appear unremarkable. IMPRESSION: Stable examination of the chest without acute cardiopulmonary abnormalities. Dictated by: Louis Adams M.D. on 05/16/2020 at 17:38 Approved by: Louis Adams M.D. on 05/16/2020 at 17:39
[2020-05-16] MEDS: GLUCAGON,HUMAN RECOMBINANT 1 MG/ML VIAL IV (16:53)
--- NOTE | 2020-05-16 18:09 | PC.NURSE ---
pt unable to tolorate po intake. pt vomiting up small amounts of water
[2020-05-16] MEDS: SODIUM CHLORIDE 0.9% 1,000 ML 150 ML IV (18:50)
[2020-05-16 19:06] LABS: COVID19 -Nasal RAPID Negative (Negative)
--- NOTE | 2020-05-16 19:18 | PM.HP.1 ---
History of Present Illness History of Present Illness Date Patient Seen: 05/16/20 Time Patient Seen: 19:18 Chief complaint: SOMETHING IS STUCK IN THROAT Narrative: Patient was eating hamburger and appears got stuck in her esophagus. This is happen before. She has had a Hernan fundoplication in the distant past. She has been having intermittent problems with swallowing since. I actually saw her 2 years ago and referred to the [place] where she went. They told her that she could have a revision but it would be through scar and a difficult operations who any time she is ready they are willing. She has not felt that her symptoms have been that that enough to risk that. She has had multiple EGDs over time. She has had food blockage before. Patient History Medical History ADHD (attention deficit hyperactivity disorder) (Chronic) Anxiety (Chronic 1984) Chicken pox (Resolved) Chronic cough (Chronic ~1998) Chronic headaches (Chronic ~1979) Depression (Chronic 1984) Esophageal ring (Resolved 2001) Esophageal web (Resolved 2001) GERD (gastroesophageal reflux disease) (Chronic) Herpes (Chronic 1979) Measles (Resolved) Migraines (Chronic ~1979) Restrictive lung disease (Acute) Surgical History Anesthesia complication (Resolved) History of Hernan fundoplication (Resolved) History of repair of hiatal hernia (Resolved 1997) Status post appendectomy (Resolved 1969) Status post delivery (Resolved 1987) Status post endoscopy (Resolved 1998) Status post hysterectomy (Resolved 1997) Status post laparoscopy (Resolved 1985) Status post wrist surgery (Resolved 1989) Family & Social History Family History Father Heart disease Mother Age: 99 PAD (peripheral artery disease) Heart disease Hypertension Sister Hypertension Social History: household members spouse Safety & Behavioral: Feels Safe in Current Yes Environment Been Physically Hurt or No Threatened By a Person Tobacco & Substance use: Smoking Status Never smoker alcohol intake current alcohol intake frequency 0-2 drinks per day Substance Use Type does not use Meds Home Medications and Allergies Home Medications Medication Instructions Recorded Confirmed Type topiramate 25 mg sprinkle capsule 25 mg PO QDAY #90 cap 06/10/18 09/17/18 Rx ibuprofen 400 mg PO Q4-6H PRN 09/17/18 09/17/18 History oxycodone 5 mg PO Q4-6H PRN #20 tab 09/17/18 Rx zoledronic [id number] 5 5 mg IV ONCE ml 03/25/19 03/25/19 History mg/100 mL in mannitol 5 %-water intravenous piggybck bupropion HCl 300 mg 24 hr tablet, See Rx Instructions .ROUTE 06/12/19 Rx extended release .COMPLEX #90 tablet hydrochlorothiazide 25 mg tablet See Rx Instructions .ROUTE 06/12/19 Rx .COMPLEX #90 tablet lisinopril 20 mg tablet See Rx Instructions .ROUTE 06/12/19 Rx .COMPLEX #90 tablet simvastatin 20 mg tablet See Rx Instructions .ROUTE 06/12/19 Rx .COMPLEX #90 tablet fluticasone propionate 50 1 spray INTRANASAL BID #16 gm 11/13/19 11/13/19 Rx mcg/actuation nasal spray,suspension omeprazole 40 mg capsule,delayed 40 mg PO BID #60 cap 01/06/20 Rx release albuterol sulfate 90 mcg/actuation 2 puff INHALATION Q4-6H PRN #18 01/07/20 Rx aerosol inhaler gram buspirone 10 mg tablet 10 mg PO BID #60 tab 01/26/20 Rx trazodone 50 mg tablet See Rx Instructions .ROUTE 03/11/20 Rx .COMPLEX #90 tab cyclobenzaprine 10 mg PO TID PRN #14 tab 04/03/20 Rx ketorolac 10 mg PO Q6H PRN #14 tab 04/03/20 Rx Allergies Allergy/AdvReac Type Severity Reaction Status Date / Time Sulfa (Sulfonamide Allergy Severe Anaphylaxis Verified 05/16/20 16:21 Antibiotics) Penicillins [PENICILLINS] Allergy Unknown Hives Verified 05/16/20 16:21 levofloxacin AdvReac Severe sore Verified 05/16/20 16:21 achilles tendon for 3 mos. Review of Systems Review of Systems Narrative: Patient has no visual difficulties. No tooth aches. No cough or cold. She had trouble breathing during some cold weather earlier this year but that has not recurred. She is not on any regular medications because of that. She does suffer from hypertension and is on medications for same. She denies any heart problems or chest pain. No black or bloody bowel movements. No blood in her vomit. No seizures or blackouts. Exam Vital Signs (past 8 hours): - 05/16/20 16:09 05/16/20 16:10 05/16/20 16:11 Temperature Pulse Rate 76 79 78 Respiratory Rate Blood Pressure 185/102 H 184/103 H Pulse Oximetry 100 99 100 05/16/20 16:14 05/16/20 16:30 05/16/20 17:00 Temperature 98.3 F Pulse Rate 78 Respiratory Rate 14 Blood Pressure 194/111 H 165/100 H 173/107 H Pulse Oximetry 97 05/16/20 18:27 05/16/20 18:30 05/16/20 18:35 Temperature Pulse Rate 82 84 78 Respiratory Rate 22 21 Blood Pressure 197/113 H 169/97 H Pulse Oximetry 96 98 05/16/20 19:00 Temperature Pulse Rate 78 Respiratory Rate 24 Blood Pressure 170/96 H Pulse Oximetry Oxygen Delivery Method Room Air Narrative Exam Narrative: Cooperative no apparent distress. Eyes are nonicteric. Lungs are clear to auscultation no rales or rhonchi. Heart regular rate and rhythm without murmur gallop. Abdomen is protuberant mildly soft nontender without mass. Patient is alert and oriented. Speech rate and content are appropriate. Affect is appropriate. Objective Labs Labs: Laboratory Results - last 24 hr 05/16/20 18:35 COVID-19 PCR Negative Assessment & Plan Assessment & Plan narrative: Patient with food obstructing her esophagus. There been multiple attempts to get this to go through without affect. Will proceed to an EGD. I have discussed this with the patient. She expresses that she is quite familiar with it. Risks of bleeding perforation were discussed. All questions were answered. I plan to put her to sleep to protect her airway so the food and fluid in her esophagus to not get into her lungs. And she knows this.
--- NOTE | 2020-05-16 19:26 | PM.PREOP ---
Pre-operative Note COVID-19 COVID-19 status: Negative Result date/Date tested (Pos, Neg/Pending): 05/16/20 Interval Note History & Physical reviewed/Exam performed by Physician: Yes Changes to H&P: No
--- NOTE | 2020-05-16 21:45 | PM.OP.ENDO ---
Operative Date/Time/Diagnoses Date of procedure: 05/16/20 Time of procedure: 21:45 Pre-op diagnosis: Obstruction of the esophagus from food Post-op diagnosis: same (Slipped Hernan with small amount of stomach that appears to be above the wrap forming a pouch) Procedure & Clinicians Study performed: EGD and evacuation of food into the stomach Same procedure as scheduled: Yes Indications: Obstruction of the esophagus Surgeon: Kofi Phillips Procedure Notes SCOAP/Timeout: Performed Procedure in detail: The patient was placed supine on her stretcher and underwent general endotracheal anesthesia to protect her airway. Scope was inserted under direct vision into the esophagus. The esophagus was normal to I reach the distal esophagus where encountered impacted food. These are small particles of the large amount of food. I chose to push them into the stomach but this was quite difficult because there was a small amount of stomach above a Hernan wrap that the food was trapped in. Sometimes irrigated and push it through. The entire small sac was filled with food particles. I was able to use safely push all of the material went irrigated into the stomach the pyloric channel was patent and the duodenal bulb was normal. The scope was removed. GE junction was clearly above the diaphragm and it appeared to be at about 34 cm from the incisors. Patient tolerated the procedure well. Was extubated and taken recovery postprocedure Scope withdrawal time: Not applicable Sedation minutes: 0 (Done under general endotracheal anesthesia to protect the patient's airway from aspiration) Findings: other findings (I believe the Hernan had slipped onto the stomach and the entire upper stomach moved up into the chest.) Specimen(s): none sent Complications: none Post-procedure Plan for aftercare: Will need to be referred for evaluation and treatment of this Hernan. I think the patient will chronically have problems emptying this small sac due to narrowing of the outlet. Disposition: PACU
== END 2020-05-16 22:24 | disposition home or self-care (01) ==
LOC: ED 18:18 → AC 19:02
PROVIDERS: Admitting Provider Specialist; Emergency Provider Emergency Medicine; PCP Family Medicine; Visit Provider Specialist
PROC: 0DJ08ZZ Inspection of Upper Intestinal Tract, Via Natural or Artificial Opening Endoscopic (ICD-10-PCS; CPT 43247; principal; 2020-05-16 21:00)
DX: T18.128A Food in esophagus causing other injury, initial encounter (principal); K21.9 Gastro-esophageal reflux disease without esophagitis; I10 Essential (primary) hypertension; E78.5 Hyperlipidemia, unspecified; Z11.59 Encounter for screening for other viral diseases
CPT/HCPCS: 43247; 71045; 87635; 93005; 93010; 96361; 96374; 99218; 99284; G0378; J0330; J1610; J2704; J3010

== ENCOUNTER → 2020-09-16 12:14 | Outpatient (CLI) | payer MEDICARE, OTHER, SELFPAY ==
--- NOTE | 2020-09-16 12:27 | DI.RAD.S_ITS ---
PROCEDURE: XR KNEE LT 3V INDICATIONS: fell on her knee 2 weeks ago TECHNIQUE: 3 views of the knee were acquired. COMPARISON: None. FINDINGS: Bones: No fractures or dislocations. No suspicious bony lesions. Transverse presumed tendon transfer screws at the lateral aspect of the proximal tibial metadiaphyseal junction and tibial plateau. Soft tissues: No joint effusion. No suspicious soft tissue calcifications. IMPRESSION: Postsurgical changes, as discussed. No trauma found, no evidence of fixation screw disruption. Dictated by: Cristobal Ramos M.D. on 09/16/2020 at 13:15 Approved by: Cristobal Ramos M.D. on 09/16/2020 at 13:15
== END ==
PROVIDERS: PCP Family Medicine; Referring Provider Nurse Practitioner Family; Visit Provider Nurse Practitioner Family
DX: M25.562 Pain in left knee (principal); Z98.890 Other specified postprocedural states
CPT/HCPCS: 73562

== ENCOUNTER 2020-09-24 18:41 | Emergency (ER) | payer OTHER, MEDICARE, SELFPAY ==
[2020-09-24 18:46] VITALS: BP 180/88; PULSE 69; RESP 12; TEMP 36.4; O2SAT 99; BMI 23.8
[2020-09-24 18:47] VITALS: PULSE 69; O2SAT 100
--- NOTE | 2020-09-24 18:50 | DI.RAD.S_ITS ---
PROCEDURE: XR FOREARM RT 2V INDICATIONS: fall TECHNIQUE: 2 views of the forearm were acquired. COMPARISON: [facility], CR, XR WRIST LT MIN 3V, 09/24/2020, 19:01. FINDINGS: Bones: There is a comminuted fracture of the distal radius extending to the radiocarpal and distal radioulnar joints. 2 corticated ossicles are demonstrated adjacent to the distal ulnar consistent with sequelae of a prior ulnar styloid fracture. No fracture within the forearm. Soft tissues: No suspicious soft tissue calcifications or masses. IMPRESSION: 1. Comminuted intra-articular fracture of the distal radius. Dictated by: Remington Trinidad M.D. on 09/24/2020 at 19:44 Approved by: Remington Trinidad M.D. on 09/24/2020 at 19:45
--- NOTE | 2020-09-24 18:50 | DI.RAD.S_ITS ---
PROCEDURE: XR WRIST LT MIN 3V INDICATIONS: fall TECHNIQUE: 3 views of the wrist were acquired. COMPARISON: [facility], , WRIST MINIMUM 3 VIEWS LEFT, 06/14/2009, 15:07. FINDINGS: Bones: There is a comminuted fracture of the distal radius with extension to the radiocarpal and distal radioulnar joints. There is mild depression along the articular surface of the radiocarpal joint. There are 2 small corticated ossicles adjacent to the distal ulnar consistent with sequelae of prior ulnar fractures. Soft tissues: No suspicious soft tissue calcifications. IMPRESSION: 1. Comminuted intra-articular fracture of the distal radius with mild articular surface depression along the radiocarpal joint. Dictated by: Remington Trinidad M.D. on 09/24/2020 at 19:46 Approved by: Remington Trinidad M.D. on 09/24/2020 at 19:47
[2020-09-24 19:00] VITALS: PULSE 68; O2SAT 98
--- NOTE | 2020-09-24 19:16 | ED.UPPEXIN ---
HPI - Extremity Injury (Upper) General Chief Complaint: Extremity Injury, Upper Stated Complaint: left wrist injury from a fall Time Seen by Provider: 09/24/20 19:11 Source: patient Mode of arrival: Ambulatory History of Present Illness HPI narrative: 65-year-old woman with a history of hypertension hyperlipidemia mild asthma and anxiety presents after falling at work. She stumbled over a clothing rack fell and landed on her left wrist and noted an immediate deformity. Her right wrist has a minor bruise but is not significantly injured. There was no syncope, palpitations, chest pain or tachycardia prior to the fall. Related Data Home Medications Medication Instructions Recorded Confirmed ibuprofen 400 mg PO Q4-6H PRN 09/17/18 09/16/20 zoledronic acid 5 mg/100 mL in 5 mg IV ONCE ml 03/25/19 09/16/20 mannitol 5 %-water intravenous piggybck Previous Rx's Medication Instructions Recorded fluticasone propionate 50 1 spray INTRANASAL BID #16 gm 11/13/19 mcg/actuation nasal spray,suspension albuterol sulfate 90 mcg/actuation 2 puff INHALATION Q4-6H PRN #18 01/07/20 aerosol inhaler gram omeprazole 40 mg capsule,delayed 40 mg PO BID #180 cap 06/13/20 release trazodone 50 mg tablet See Rx Instructions .ROUTE 07/11/20 .COMPLEX #90 tab lisinopril 20 mg tablet 20 mg PO DAILY #90 tab 08/01/20 bupropion HCl 300 mg 24 hr tablet, See Rx Instructions .ROUTE 08/08/20 extended release .COMPLEX #90 tablet hydrochlorothiazide 25 mg tablet See Rx Instructions .ROUTE 08/08/20 .COMPLEX #90 tab simvastatin 20 mg tablet See Rx Instructions .ROUTE 08/08/20 .COMPLEX #90 tablet diclofenac sodium 1 % topical gel 2 g TOPICAL QID #100 g 09/16/20 Allergies Allergy/AdvReac Type Severity Reaction Status Date / Time Sulfa (Sulfonamide Allergy Severe Anaphylaxis Verified 09/24/20 18:49 Antibiotics) Penicillins [PENICILLINS] Allergy Unknown Hives Verified 09/24/20 18:49 levofloxacin AdvReac Severe sore Verified 09/24/20 18:49 achilles tendon for 3 mos. Review of Systems Review of Systems Narrative: Pertinent positive and negative findings as per HPI Remainder of review of systems is otherwise unremarkable for Constitutional: Fevers, chills, weakness ENT: No sore throat, neck pain, ear pain CV: Chest pain, palpitations, Respiratory: Cough, wheeze, dyspnea GI: Nausea, vomiting, diarrhea, : Dysuria, hematuria, flank pain Skin: Rashes, nonhealing lesions Neuro: Syncope, dizziness, tingling Psych: Depression, anxiety, suicidal ideation Patient History Medical History ADHD (attention deficit hyperactivity disorder) Anxiety (1984) Chicken pox Chronic cough (~1998) Chronic headaches (~1979) Depression (1984) Esophageal ring (2001) Esophageal web (2001) GERD (gastroesophageal reflux disease) Herpes (1979) Large breasts Measles Migraines (~1979) Restrictive lung disease Surgical History Anesthesia complication History of Hernan fundoplication History of repair of hiatal hernia (1997) Status post appendectomy (1969) Status post delivery (1987) Status post endoscopy (1998) Status post hysterectomy (1997) Status post laparoscopy (1985) Status post wrist surgery (1989) Family History Father Heart disease Mother Age: 100 PAD (peripheral artery disease) Heart disease Hypertension Sister Hypertension Social History marital status: number of children: 1 household members: spouse education level: college occupational status: employed Smoking Status: Never smoker alcohol intake: current substance use type: does not use Smoking Status: Never smoker alcohol intake frequency: 0-2 drinks per day Alcohol type: wine and hard liquor Substance Use Type: does not use Exam Narrative Exam Narrative: General: Alert appropriate in no acute distress Respiratory: Able to speak in full sentences, no obvious respiratory distress Extremity: Ventral surface of the right wrist with some minor bruising but full range of motion and neurovascularly intact. Left wrist with obvious deformity, full pulses, full sensation to all fingertips and able to move fingers with pain. No complaints of pain in elbows upper arms or shoulders. Minor contusion to the right knee. Skin: No obvious rashes, warm and dry Neurologic: Grossly intact no obvious asymmetries or abnormalities Psych: appropriate insight and affect, cooperative Initial Vital Signs Initial Vital Signs: Vital Signs Temperature 97.6 F 09/24/20 18:46 Pulse Rate 69 09/24/20 18:46 Respiratory Rate 12 09/24/20 18:46 Blood Pressure 180/88 H 09/24/20 18:46 Pulse Oximetry 99 09/24/20 18:46 Course Orders Ordered: ED Orders 09/24/20 18:50 XR forearm LT 2V Stat XR wrist LT min 3V Stat 09/24/20 20:58 CT UE LT wo con Stat Discontinued Medications Ketorolac Tromethamine (Ketorolac 60 Mg/2 Ml Vial) 30 mg IM NOW ONE Stop: 09/24/20 21:08 Last Admin: 09/24/20 21:16 Dose: 30 mg Documented by: TONY Vital Signs Vital signs: Vital Signs - 8 hr 09/24/20 18:46 09/24/20 18:47 09/24/20 19:00 Temperature 97.6 F Pulse Rate 69 69 68 Respiratory Rate 12 Blood Pressure 180/88 H Pulse Oximetry 99 100 98 09/24/20 19:30 09/24/20 20:00 Temperature Pulse Rate 65 72 Respiratory Rate Blood Pressure Pulse Oximetry 100 99 MDM - Extremity Injury (Upper) Medical Records Attestation: I reviewed the patient's medical records. Imaging Data X-ray wrist: Radiologist's Impression: FINDINGS: Bones: There is a comminuted fracture of the distal radius with extension to the radiocarpal and distal radioulnar joints. There is mild depression along the articular surface of the radiocarpal joint. There are 2 small corticated ossicles adjacent to the distal ulnar consistent with sequelae of prior ulnar fractures. Soft tissues: No suspicious soft tissue calcifications. IMPRESSION: 1. Comminuted intra-articular fracture of the distal radius with mild articular surface depression along the radiocarpal joint. Dictated by: Remington Trinidad M.D. on 09/24/2020 at 19:46 X-ray forearm: Radiologist's Impression: FINDINGS: Bones: There is a comminuted fracture of the distal radius extending to the radiocarpal and distal radioulnar joints. 2 corticated ossicles are demonstrated adjacent to the distal ulnar consistent with sequelae of a prior ulnar styloid fracture. No fracture within the forearm. Soft tissues: No suspicious soft tissue calcifications or masses. IMPRESSION: 1. Comminuted intra-articular fracture of the distal radius. Dictated by: Remington Trinidad M.D. on 09/24/2020 at 19:44 CT upper extremity: Radiologist's Impression: FINDINGS: Image quality: There is beam hardening artifact limiting evaluation. Bones: There is a markedly comminuted fracture of the distal radius redemonstrated with extension to the radiocarpal and distal radioulnar joints. There is minimal depression of articular surface fragments by up to approximately 1-2 mm. There are 2 small corticated ossicles distal to the ulnar consistent with sequelae of prior fractures. Visualized osseous structures otherwise appear intact. Soft tissues: There is extensive periarticular soft tissue swelling at the level of the wrist. Visualized flexor and extensor tendons appear grossly intact with evaluation limited due to beam hardening artifact. IMPRESSION: 1. Markedly comminuted fracture of the distal radius with articular extension as described. Dictated by: Remington Trinidad M.D. on 09/24/2020 at 22:09 MDM Narrative Medical decision making narrative: X-rays reviewed with Dr. Boucher, orthopedist. He requests CT scan to help with further planning. Sugar-tong splint, sling, pain control, typical fracture instructions and asked that she call his office on Saturday morning to schedule a follow-up appointment. Discharge Plan Departure Patient Disposition: Home Clinical Impression: Distal radius fracture, left Qualifiers: Encounter type: initial encounter Fracture type: closed Fracture morphology: other intra-articular Qualified Code(s): S52.572A - Other intraarticular fracture of lower end of left radius, initial encounter for closed fracture Instructions: DI for Wrist Fracture Activity Restrictions/Additional Instructions: Thank you for coming in today You did break your wrist and your wrist joint is significantly involved. We did do a CT scan of your risk to help the orthopedic surgeon plan the perfect treatment to get your wrist working as normally as possible. You have been placed in a splint and a sling. Please keep your arm as elevated as possible, ice to the outside of the splint can still be effective. You can use the pain medication you have available at home as needed for pain control. He need to contact Dr. Boucher's office on Saturday to set up a follow-up appointment for definitive treatment of your left wrist fracture Prescriptions: No Action fluticasone propionate 50 mcg/actuation spray,suspension 1 spray Intranasal BID Qty: 16 RF: 3 zoledronic [id number] [Reclast] 5 mg/100 mL piggyback 5 mg IV ONCE RF: 0 albuterol sulfate 90 mcg/actuation HFA aerosol inhaler 2 puff INHALATION Q4-6H PRN (Reason: shortness of breath or wheezing) Qty: 18 RF: 0 omeprazole 40 mg capsule,delayed release(DR/EC) 40 mg PO BID Qty: 180 RF: 1 trazodone 50 mg tablet See Rx Instructions .ROUTE .COMPLEX Qty: 90 RF: 0 lisinopril 20 mg tablet 20 mg PO DAILY Qty: 90 RF: 3 bupropion HCl 300 mg tablet extended release 24 hr See Rx Instructions .ROUTE .COMPLEX Qty: 90 RF: 2 simvastatin 20 mg tablet See Rx Instructions .ROUTE .COMPLEX Qty: 90 RF: 2 hydrochlorothiazide 25 mg tablet See Rx Instructions .ROUTE .COMPLEX Qty: 90 RF: 2 diclofenac sodium 1 % gel 2 g topical QID Qty: 100 RF: 0 ibuprofen 200 mg Tablet 400 mg PO Q4-6H PRN (Reason: Pain (Scale Score 4-6)) RF: 0 Referrals: Do Boucher MD [Physician] - Una Flaherty DO [Primary Care Provider] -
[2020-09-24 19:30] VITALS: PULSE 65; O2SAT 100
[2020-09-24 20:00] VITALS: PULSE 72; O2SAT 99
--- NOTE | 2020-09-24 20:58 | DI.CT.S_ITS ---
PROCEDURE: CT UE LT WO CON INDICATIONS: distal radius complex fracture TECHNIQUE: Noncontrast 1 mm axial sections acquired through the left upper extremity centered at the wrist, with coronal and sagittal reformats. COMPARISON: [facility], CR, XR WRIST LT MIN 3V, 09/24/2020, 19:01. [facility], CR, XR FOREARM LT 2V, 09/24/2020, 19:01. FINDINGS: Image quality: There is beam hardening artifact limiting evaluation. Bones: There is a markedly comminuted fracture of the distal radius redemonstrated with extension to the radiocarpal and distal radioulnar joints. There is minimal depression of articular surface fragments by up to approximately 1-2 mm. There are 2 small corticated ossicles distal to the ulnar consistent with sequelae of prior fractures. Visualized osseous structures otherwise appear intact. Soft tissues: There is extensive periarticular soft tissue swelling at the level of the wrist. Visualized flexor and extensor tendons appear grossly intact with evaluation limited due to beam hardening artifact. IMPRESSION: 1. Markedly comminuted fracture of the distal radius with articular extension as described. Dictated by: Remington Trinidad M.D. on 09/24/2020 at 22:09 Approved by: Remington Trinidad M.D. on 09/24/2020 at 22:12
[2020-09-24] MEDS: KETOROLAC 60 MG/2 ML VIAL 30 MG IM (21:16)
== END 2020-09-24 21:45 | disposition home or self-care (01) ==
PROVIDERS: Emergency Provider Emergency Medicine; PCP Family Medicine
DX: S52.572A Other intraarticular fracture of lower end of left radius, initial encounter for closed fracture (principal); W19.XXXA Unspecified fall, initial encounter; I10 Essential (primary) hypertension; E78.5 Hyperlipidemia, unspecified; J45.909 Unspecified asthma, uncomplicated; F41.9 Anxiety disorder, unspecified; Y99.0 Civilian activity done for income or pay
CPT/HCPCS: 29105; 73090; 73110; 73200; 96372; 99284; J1885

== ENCOUNTER → 2021-02-21 10:07 | Outpatient (CLI) | payer MEDICARE, OTHER, SELFPAY | PROVIDERS: PCP Family Medicine; Referring Provider Family Medicine; Visit Provider Family Medicine | DX: M81.0 Age-related osteoporosis without current pathological fracture (principal); Z78.0 Asymptomatic menopausal state; Z90.722 Acquired absence of ovaries, bilateral; Z82.62 Family history of osteoporosis | CPT/HCPCS: 77080 ==

== ENCOUNTER → 2021-03-07 07:04 | Outpatient (CLI) | payer MEDICARE, OTHER, SELFPAY ==
[2021-03-07 08:14] LABS: Add Manual Diff / Slide Review NO; Basophils Absolute Auto 0 /uL (0-100); Basophils Percent Auto 0.4 % (0-2); Eosinophils Absolute Auto 200 /uL (0-450); Eosinophils Percent Auto 3.1 % (2-4); Hematocrit 42.7 % (36-46); Hemoglobin 14.2 g/dL (12.0-16.0); Lymphocytes Absolute Auto 1700 /uL (1100-4500); Lymphocytes Percent Auto 26.6 % (25-40); Mean Corpuscular HGB Conc 33.4 % (30-36); Mean Corpuscular Hemoglobin 31.1 PG (26-34); Mean Corpuscular Volume 93.2 fL (80-100); Monocytes Absolute Auto 300 /uL (0-900); Monocytes Percent Auto 5.6 % (3-14); Neutrophils Absolute Auto 4000 /uL (1500-7000); Neutrophils Percent Auto 64.3 % (50-75); Platelet Count 251 X10^3/uL (150-400); Red Blood Cell Count 4.58 X10^6/uL (4.0-5.2); Red Cell Distribution Width 13.2 % (11.6-14.8); White Blood Cell Count 6.2 X10^3/uL (4.5-11.0)
[2021-03-07 08:34] LABS: Alanine Aminotransferase 27 IU/L (<35); Albumin 4.2 g/dL (3.5-5.0); Albumin Globulin Ratio 1.4 (1.0-2.8); Alkaline Phosphatase 66 U/L (38-126); Aspartate Aminotransferase 29 IU/L (14-36); BUN Creatinine Ratio 26.9 (6-22); Bilirubin Total 0.3 mg/dL (0.2-1.3); Blood Urea Nitrogen 21 mg/dL (7-17); Calcium 9.3 mg/dL (8.4-10.2); Carbon Dioxide 33 mmol/L (22-32); Chloride 101 mmol/L (98-107); Cholesterol 205 mg/dL (140-199); Estimated Glomerular Filt Rate > 60.0 mL/min (>60); Globulin 2.9 g/dL (1.7-4.1); Glucose 103 mg/dL (80-110); HDL Cholesterol 67 mg/dL (40-60); HEMOLYSIS < 15 (0-50); LDL Cholesterol Calculated 113 mg/dL (<100); Potassium 3.7 mmol/L (3.4-5.1); Sodium 140 mmol/L (137-145); Total Protein 7.1 g/dL (6.3-8.2); Triglycerides 127 mg/dL (35-150)
[2021-03-07 08:51] LABS: Vitamin D 25 Hydroxy (D3) 34.6 ng/mL (30.0-100.0)
== END ==
PROVIDERS: PCP Family Medicine; Referring Provider Family Medicine; Visit Provider Family Medicine
DX: K21.9 Gastro-esophageal reflux disease without esophagitis (principal); M81.0 Age-related osteoporosis without current pathological fracture
CPT/HCPCS: 36415; 80053; 80061; 82306; 85025

== ENCOUNTER → 2021-03-10 14:13 | Outpatient (CLI) | payer MEDICARE, OTHER, SELFPAY ==
--- NOTE | 2021-03-10 14:25 | DI.MG.S_ITS ---
BILATERAL DIGITAL SCREENING MAMMOGRAM 3D/2D WITH CAD: 03/10/2021 CLINICAL: Routine screening. Family history of breast cancer. Comparison is made to exams dated: 02/21/2019 mammogram, 08/16/2017 mammogram - [facility], and 06/27/2015 mammogram - [facility]. There are scattered fibroglandular elements in both breasts. Current study was also evaluated with a Computer Aided Detection (CAD) system. No significant masses, calcifications, or other findings are seen in either breast. There has been no significant interval change. IMPRESSION: NEGATIVE There is no mammographic evidence of malignancy. A 1 year screening mammogram is recommended. This exam was interpreted at Station ID: [id number]. NOTE: For mammograms, a report in lay terms will be sent to the patient. Approximately 15% of breast malignancies will not be visualized mammographically. In the management of a palpable breast mass, a negative mammogram must not discourage biopsy of a clinically suspicious lesion. Electronically Signed By: Louis wynn/ronnie:03/10/2021 14:52:19 letter sent: Normal Exam ACR BI-RADS Category 1: Negative [id number]
== END ==
PROVIDERS: PCP Family Medicine; Referring Provider Family Medicine; Visit Provider Family Medicine
DX: Z12.31 Encounter for screening mammogram for malignant neoplasm of breast (principal); Z80.3 Family history of malignant neoplasm of breast
CPT/HCPCS: 77063; 77067

== ENCOUNTER → 2021-05-18 12:59 | Outpatient (CLI) | payer MEDICARE, OTHER, SELFPAY ==
[2021-05-18 13:26] LABS: COVID19 -Nasal RAPID Negative (Negative)
== END ==
PROVIDERS: PCP Family Medicine; Visit Provider Nurse Practitioner
DX: Z20.822 Contact with and (suspected) exposure to COVID-19 (principal)
CPT/HCPCS: 87635

== ENCOUNTER → 2021-09-15 09:18 | Outpatient (CLI) | payer MEDICARE, OTHER, SELFPAY ==
[2021-09-15 11:44] LABS: COVID19 -Nasal RAPID POSITIVE (Negative)
== END ==
PROVIDERS: PCP Family Medicine; Visit Provider Surgery
DX: U07.1 COVID-19 (principal); Z01.812 Encounter for preprocedural laboratory examination; Z20.822 Contact with and (suspected) exposure to COVID-19
CPT/HCPCS: 87635; C9803

== ENCOUNTER → 2021-10-11 09:14 | Outpatient (CLI) | payer MEDICARE, OTHER, SELFPAY ==
[2021-10-11 13:10] LABS: Appearance Urine UA SL CLOUDY; Bilirubin Urine UA NEGATIVE (NEGATIVE); Color Urine UA YELLOW; Glucose Urine UA NEGATIVE (Negative); Ketones Urine UA NEGATIVE (NEGATIVE); Leukocyte Esterase Urine UA NEGATIVE (NEGATIVE); Nitrite Urine UA NEGATIVE (Negative); Occult Blood Urine UA NEGATIVE (Negative); Protein Urine UA TRACE (Negative); Specific Gravity Urine UA 1.015 (1.000-1.035); Urobilinogen Urine UA 0.2 E.U./dL (0.2)
[2021-10-11 13:11] LABS: pH Urine UA 8.5 (4.5-8.0)
[2021-10-11 13:19] LABS: Amorphous Sediment Urine 2+; Bacteria Urine Few (2-10); Culture Indicated Urine Specimen Cultured; RBC Urine None Seen (0-5/HPF); Squamous Epithelial Cell Urine 0-1 /HPF (0-5/HPF); Triple Phosphate Crystal Urine Many; WBC Urine 0-1/HPF (0-5/HPF)
== END ==
PROVIDERS: PCP Family Medicine; Visit Provider Physician Assistant
DX: R10.9 Unspecified abdominal pain (principal)
CPT/HCPCS: 81001; 87086

== ENCOUNTER 2022-02-25 12:10 | Emergency (ER) | payer MEDICARE, OTHER, SELFPAY ==
[2022-02-25 12:13] VITALS: BP 152/82; PULSE 50; RESP 18; TEMP 36.6; O2SAT 98; BMI 24.8
--- NOTE | 2022-02-25 12:18 | DI.RAD.S_ITS ---
PROCEDURE: XR FOOT LT MIN 3V INDICATIONS: trip and fall TECHNIQUE: 3 views of the foot were acquired. COMPARISON: [facility], , FOOT 3V RIGHT, 10/22/2008, 16:51. FINDINGS: Bones: Osseous structures are demineralized. No fractures or dislocations. No suspicious bony lesions. Mild degenerative changes of the 1st metatarsophalangeal joint. Soft tissues: No tibiotalar joint effusion. Small spurs of the Achilles and plantar fascial insertions of the calcaneus. IMPRESSION: No acute osseous abnormality. Dictated by: Samm High D.O. on 02/25/2022 at 11:50 Approved by: Samm High D.O. on 02/25/2022 at 11:52
--- NOTE | 2022-02-25 12:18 | DI.RAD.S_ITS ---
PROCEDURE: XR KNEE LT 3V INDICATIONS: trip and fall TECHNIQUE: 3 views of the knee were acquired. COMPARISON: [facility], , XR KNEE LT 3V, 09/16/2020, 12:31. FINDINGS: Bones: No acute fracture or dislocation. Joint spacing appears maintained. Postsurgical changes of the proximal tibia are unchanged likely status post tendon transfer. Subtle lucency noted of the lateral tibial plateau is unchanged from prior exam. Soft tissues: No joint effusion. Superior and inferior patellar enthesophyte. IMPRESSION: Stable appearance of the knee without evidence of an acute osseous abnormality. Lucency of the tibial plateau is unchanged may represent degenerative cystic change/osteochondral lesion. Dictated by: Samm High D.O. on 02/25/2022 at 11:47 Approved by: Samm High D.O. on 02/25/2022 at 11:50
--- NOTE | 2022-02-25 15:23 | ED_ITS ---
HPI - Fall <Marciano Herrera PA-C - Last Filed: 02/25/22 19:39> General Chief Complaint: Fall Stated Complaint: fell in bathroom hurt lt foot & knee Time Seen by Provider: 02/25/22 14:33 Source: patient Mode of arrival: Ambulatory History of Present Illness HPI Narrative: Patient is a 67-year-old female who presents to the emergency department for evaluation of left foot and left knee pain. Patient states that she slipped in her bathroom today landing on her left knee and injuring her left foot. She states that since that time she has had difficulty bearing weight on the left lower extremity and states that she can only bear weight on the left lower extremity if the hip is slightly externally rotated. Of note, patient denies hitting her head or losing consciousness as result of the fall. Additionally, she denies pain or injury elsewhere. She denies any fever, chills, chest pain, cough, shortness of breath, nausea, vomiting, diarrhea, constipation, abdominal pain, dysuria, hematuria, or any other concerning symptoms. No further concerns were voiced at this time. Related Data Home Medications Medication Instructions Recorded Confirmed ibuprofen 200 mg tablet 400 mg PO Q4-6H PRN Pain (Scale 09/17/18 02/15/22 Score 4-6) zoledronic acid 5 mg/100 mL in 5 mg IV ONCE 03/25/19 02/15/22 mannitol 5 %-water intravenous piggybck (Reclast) Previous Rx's Medication Instructions Recorded fluticasone propionate 50 1 spray intranasal BID ##16 11/13/19 mcg/actuation nasal spray,suspension albuterol sulfate 90 mcg/actuation 2 puff inhalation Q4-6H PRN 01/07/20 aerosol inhaler shortness of breath or wheezing #18 grams diclofenac sodium 1 % topical gel 2 g topical QID #100 grams 10/07/20 omeprazole 40 mg capsule,delayed 40 mg PO DAILY #90 caps 03/14/21 release sodium,potassium,mag sulfates 17.5 See Rx Instructions PO .COMPLEX 09/05/21 gram-3.13 gram-1.6 gram oral soln #354 mL (Suprep Bowel Prep Kit) clobetasol 0.05 % topical ointment 1 applic topical BEDTIME #60 grams 09/26/21 bupropion HCl 450 mg 24 hr tablet, 450 mg PO DAILY #90 tabs 02/05/22 extended release hydrochlorothiazide 25 mg tablet See Rx Instructions .Route 02/05/22 .COMPLEX #90 tabs lisinopril 20 mg tablet 20 mg PO DAILY #90 tabs 02/05/22 simvastatin 20 mg tablet See Rx Instructions .Route 02/05/22 .COMPLEX #90 tabs trazodone 50 mg tablet See Rx Instructions .Route 02/07/22 .COMPLEX #90 tabs meloxicam 15 mg tablet See Rx Instructions .Route 02/08/22 .COMPLEX #14 tabs Allergies Allergy/AdvReac Type Severity Reaction Status Date / Time Sulfa (Sulfonamide Allergy Severe Anaphylaxis Verified 02/15/22 16:16 Antibiotics) Penicillins [PENICILLINS] Allergy Unknown Hives Verified 02/15/22 16:16 levofloxacin AdvReac Severe sore Verified 02/15/22 16:16 achilles tendon for 3 mos. Review of Systems <Marciano Herrera PA-C - Last Filed: 02/25/22 19:39> Constitutional Constitutional: Denies chills, Denies fatigue, Denies fever(s), Denies frequent falls, Denies lethargy and Denies weakness ENT Ears, Nose, Mouth, and Throat: Denies neck pain Cardiovascular Cardiovascular: Denies chest pain, Denies irregular heart rhythm, Denies lightheadedness, Denies palpitations, Denies dyspnea, Denies dyspnea on exertion and Denies orthopnea Respiratory Respiratory: Denies dyspnea and Denies dyspnea on exertion Gastrointestinal Gastrointestinal: Denies abdominal pain, Denies change in bowel habits, Denies diarrhea, Denies nausea and Denies vomiting Genitourinary Genitourinary: Denies hematuria, Denies flank pain, Denies urinary incontinence and Denies urinary urgency Musculoskeletal Musculoskeletal: Denies back pain, Reports arthralgias (Left foot, left the), Reports joint swelling (Left knee), Denies muscle weakness, Denies neck pain, Denies numbness and Denies tingling Integumentary/Breasts Skin/Breast: Denies pruritus, Denies erythema, Denies rash and Denies wounds Neurologic Neurologic: Denies frequent falls, Denies numbness, Denies tingling and Denies weakness Endocrine Endocrine: Denies fatigue and Denies palpitations Patient History <Marciano Herrera PA-C - Last Filed: 02/25/22 19:39> Medical History ADHD (attention deficit hyperactivity disorder) Anxiety (1984) Chicken pox Chronic cough (~1998) Chronic headaches (~1979) Depression (1984) Esophageal ring (2001) Esophageal web (2001) GERD (gastroesophageal reflux disease) Herpes (1979) Hyperlipidemia Hypertension Measles Migraines (~1979) Restrictive lung disease Surgical History Anesthesia complication History of Hernan fundoplication History of repair of hiatal hernia (1997) Status post appendectomy (1969) Status post delivery (1987) Status post endoscopy (1998) Status post hysterectomy (1997) Status post laparoscopy (1985) Status post wrist surgery (1989) Family History Father Heart disease Mother Age: 101 PAD (peripheral artery disease) Heart disease Hypertension Sister Hypertension Social History marital status: number of children: 1 household members: spouse education level: college occupational status: employed Smoking Status: Never smoker alcohol intake: current substance use type: does not use Smoking Status: Never smoker alcohol intake frequency: 0-2 drinks per day Alcohol type: wine and hard liquor Substance Use Type: does not use Exam <Marciano Herrera PA-C - Last Filed: 02/25/22 19:39> Narrative Exam Narrative: GENERAL: 67 year old patient appears stated age. Well-developed patient, in no acute distress. HEAD: Atraumatic. Normocephalic. EYES: Pupils equal round and reactive. Extraocular motions intact. No scleral icterus. No injection or drainage. ENT: Nose without bleeding, purulent drainage. Throat without erythema, tonsilla r hypertrophy or exudate. Airway patent. NECK: Trachea midline. Non tender CARDIOVASCULAR: Regular rate and rhythm without murmurs, gallops, or rubs. RESPIRATORY: Clear to auscultation. Breath sounds equal bilaterally. No wheezes, rales, or rhonchi. GASTROINTESTINAL: Abdomen soft, non-tender, nondistended. EXTREMITIES: No edema. Swelling and tenderness to palpation appreciated along the medial aspect of the left knee without gross deformity or overlying ecchymosis or erythema. No popliteal fullness. Tenderness to palpation appreciated along the medial aspect of the left foot with 2 superficial abrasions noted to the medial aspect of the foot. There is no gross deformity of the left foot, patient is able to move all toes of the left foot without difficulty. Patient is able to perform plantar flexion and dorsiflexion of the left foot without significant discomfort, however there is mild pain with resisted dorsiflexion of the left foot. Good sensation light touch appreciated throughout the bilateral lower extremities. Gross motor function intact throughout the bilateral lower extremities. BACK: Nontender without deformity or crepitance. No flank tenderness. NEURO: AOx3. SKIN: No rash or erythema of visible areas Initial Vital Signs Initial Vital Signs: Vital Signs Temperature 97.8 F 02/25/22 12:13 Pulse Rate 50 L 02/25/22 12:13 Respiratory Rate 18 02/25/22 12:13 Blood Pressure 152/82 H 02/25/22 12:13 Pulse Oximetry 98 02/25/22 12:13 Oxygen Delivery Method 02/25/22 12:13 <Cain Park MD - Last Filed: 02/25/22 21:22> Initial Vital Signs Initial Vital Signs: Vital Signs Temperature 97.8 F 02/25/22 12:13 Pulse Rate 50 L 02/25/22 12:13 Respiratory Rate 18 02/25/22 12:13 Blood Pressure 152/82 H 02/25/22 12:13 Pulse Oximetry 98 02/25/22 12:13 Oxygen Delivery Method 02/25/22 12:13 Course <Marciano Herrera PA-C - Last Filed: 02/25/22 19:39> Course Course Narrative: X-ray of left foot an x-ray of left knee obtained. No acute bony abnormality such as fracture dislocation identified. Orders Ordered: ED Orders 02/25/22 12:18 XR foot LT min 3V Stat XR knee LT 3V Stat Vital Signs Vital signs: Vital Signs - 8 hr 02/25/22 12:13 Temperature 97.8 F Pulse Rate 50 L Respiratory Rate 18 Blood Pressure 152/82 H Pulse Oximetry 98 Oxygen Delivery Method Room Air <Cain Park MD - Last Filed: 02/25/22 21:22> Orders Ordered: ED Orders 02/25/22 12:18 XR foot LT min 3V Stat XR knee LT 3V Stat Vital Signs Vital signs: Vital Signs - 8 hr 02/25/22 12:13 Temperature 97.8 F Pulse Rate 50 L Respiratory Rate 18 Blood Pressure 152/82 H Pulse Oximetry 98 Oxygen Delivery Method Room Air MDM - Fall <Marciano Herrera PA-C - Last Filed: 02/25/22 19:39> Imaging Data Extremity x-ray #1: Radiologist's Impression: PROCEDURE:? XR FOOT LT MIN 3V ? INDICATIONS:? trip and fall ? TECHNIQUE:? 3 views of the foot were acquired.? ? COMPARISON:? [facility], FOOT 3V RIGHT, 10/22/2008, 16:51. ? FINDINGS:? ? Bones:? Osseous structures are demineralized.? No fractures or dislocations.? No suspicious bony lesions.? Mild degenerative changes of the 1st metatarsophalangeal joint. ? ? Soft tissues:? No tibiotalar joint effusion.? Small spurs of the Achilles and plantar fascial insertions of the calcaneus. ? ? IMPRESSION:? ? No acute osseous abnormality. ? ? Dictated by: Samm High D.O. on 02/25/2022 at 11:50 ? ? Approved by: Samm High D.O. on 02/25/2022 at 11:52? Extremity x-ray #2: Radiologist's Impression: PROCEDURE:? XR KNEE LT 3V ? INDICATIONS:? trip and fall ? TECHNIQUE:? 3 views of the knee were acquired.? ? COMPARISON:? [facility], XR KNEE LT 3V, 09/16/2020, 12:31. ? FINDINGS:? ? Bones:? No acute fracture or dislocation.? Joint spacing appears maintained.? Postsurgical changes of the proximal tibia are unchanged likely status post tendon transfer.? Subtle lucency noted of the lateral tibial plateau is unchanged from prior exam. ? Soft tissues:? No joint effusion.? Superior and inferior patellar enthesophyte. ? ? IMPRESSION:? ? Stable appearance of the knee without evidence of an acute osseous abnormality. ? Lucency of the tibial plateau is unchanged may represent degenerative cystic change/osteochondral lesion. ? ? Dictated by: Samm High D.O. on 02/25/2022 at 11:47 ? ? Approved by: Samm High D.O. on 02/25/2022 at 11:50? MDM Narrative Medical decision making narrative: Differential diagnosis to consider but not limited to fracture versus dislocation versus sprain versus strain. I discussed results of x-ray imaging with patient and informed her that no acute bony abnormality such as fracture or dislocation was identified today. I encouraged the patient to continue wearing her postop shoe as it seems to provide her some relief. Additionally, encouraged the patient to continue using her meloxicam as needed for pain management but to ensure that she takes it with food. Patient expresses understanding and agrees to plan. I encouraged the patient to follow-up with orthopedics for further management of her symptoms. Strict return precautions were discussed with the patient prior to discharge. Discharge Plan Departure Patient Disposition: Home Clinical Impression: Acute pain of left knee, Acute pain of left foot Instructions: DI for Knee Pain Activity Restrictions/Additional Instructions: *You have been diagnosed with left knee pain, left foot pain *What to do: *Please continue to take your regular medications as directed. [ ] New medication prescriptions sent to your pharmacy: [ ] [ ] New medication written as a paper prescription [X] No new medications given You were evaluated in the emergency department today for left foot and knee pain. X-ray imaging obtained in the emergency department today did not show signs of acute bony abnormality such as fracture or dislocation. Encouraged to continue using her postoperative shoe as it seems to provide some relief. Additionally, you can use meloxicam as needed for pain management as long as you are taking the medication on a full stomach. I have set up a referral for orthopedic follow-up if needed. I recommend following up with the primary care provider within the next few days for further evaluation and management. Do not hesitate to return to the emergency department if you experience worsening pain, loss of sensation in the left lower extremity, increased swelling, or any other concerning symptoms. *Please follow up with your primary care provider in 2-3 days, call for an appointment. Let them know you were seen in the Emergency Department and that we ask that you be seen in follow up. We will electronically transmit a record of today's note if your PCP is in our system *If you do not have a primary care provider please contact the [facility] Resource line at [phone]. They will ask some questions about your medical history and help get you set up with a doctor in the community. *Return to Emergency Department if you should have any new, worsening or concerning symptoms, such as fever greater than 101 F, shaking chills, worsening pain, persistent vomiting or other bothersome symptoms. Prescriptions: No Action fluticasone propionate 50 mcg/actuation spray,suspension 1 spray Intranasal BID Qty: 16 3RF omeprazole 40 mg capsule,delayed release(DR/EC) 40 mg PO DAILY Qty: 90 3RF zoledronic [id number] [Reclast] 5 mg/100 mL piggyback 5 mg IV ONCE Label Comments: to be done yearly albuterol sulfate 90 mcg/actuation HFA aerosol inhaler 2 puff INHALATION Q4-6H PRN (Reason: shortness of breath or wheezing) Qty: 18 0RF diclofenac sodium 1 % gel 2 g topical QID Qty: 100 5RF Suprep Bowel Prep Kit 17.5-3.13-1.6 gram recon soln See Rx Instructions PO .COMPLEX Qty: 354 0RF Rx Instructions: DILUTE; drink full amount early evening before AND next morning at least 2 hr before procedure; follow w 32 oz. water PO clobetasol 0.05 % ointment 1 applic topical BEDTIME Qty: 60 1RF simvastatin 20 mg tablet See Rx Instructions .ROUTE .COMPLEX Qty: 90 2RF Dose Instruction: TAKE ONE TABLET BY MOUTH AT BEDTIME Rx Instructions: TAKE ONE TABLET BY MOUTH AT BEDTIME hydrochlorothiazide 25 mg tablet See Rx Instructions .ROUTE .COMPLEX Qty: 90 2RF Dose Instruction: TAKE ONE TABLET BY MOUTH DAILY Rx Instructions: TAKE ONE TABLET BY MOUTH DAILY lisinopril 20 mg tablet 20 mg PO DAILY Qty: 90 2RF bupropion HCl 450 mg tablet extended release 24 hr 450 mg PO DAILY Qty: 90 2RF trazodone 50 mg tablet See Rx Instructions .ROUTE .COMPLEX Qty: 90 0RF Dose Instruction: TAKE 1 TABLET BY MOUTH AT BEDTIME NEEDED FOR INSOMNIA Rx Instructions: TAKE 1 TABLET BY MOUTH AT BEDTIME NEEDED FOR INSOMNIA meloxicam 15 mg tablet See Rx Instructions .ROUTE .COMPLEX Qty: 14 0RF Dose Instruction: TAKE 1 TABLET BY MOUTH ONCE DAILY WITH A MEAL Rx Instructions: TAKE 1 TABLET BY MOUTH ONCE DAILY WITH A MEAL ibuprofen 200 mg Tablet 400 mg PO Q4-6H PRN (Reason: Pain (Scale Score 4-6)) Hold Instructions: trying Meloxicam Referrals: Una Flaherty DO [Primary Care Provider] - Visit Report Forms: Patient Portal/API <Cain Park MD - Last Filed: 02/25/22 21:22> Cosign ED Attending Coslatishaature Attestation: I was immediately available for consultation of this patient was seen and evaluated by the APC in the department.
== END 2022-02-25 16:15 | disposition home or self-care (01) ==
PROVIDERS: Emergency Provider Physician Assistant; PCP Family Medicine
DX: M79.672 Pain in left foot (principal); M25.562 Pain in left knee; W01.0XXA Fall on same level from slipping, tripping and stumbling without subsequent striking against object, initial encounter
CPT/HCPCS: 73562; 73630; 99281; 99283

== ENCOUNTER → 2022-04-13 08:13 | Outpatient (CLI) | payer MEDICARE, OTHER, SELFPAY ==
[2022-04-13 09:17] LABS: Add Manual Diff / Slide Review NO; Basophils Absolute Auto 0 /uL (0-100); Basophils Percent Auto 0.3 % (0-2); Eosinophils Absolute Auto 100 /uL (0-450); Eosinophils Percent Auto 2.3 % (2-4); Hematocrit 40.9 % (36-46); Hemoglobin 13.9 g/dL (12.0-16.0); Lymphocytes Absolute Auto 1400 /uL (1100-4500); Lymphocytes Percent Auto 24.8 % (25-40); Mean Corpuscular Hemoglobin 31.1 PG (26-34); Mean Corpuscular Volume 91.5 fL (80-100); Monocytes Absolute Auto 300 /uL (0-900); Monocytes Percent Auto 5.9 % (3-14); Neutrophils Absolute Auto 3700 /uL (1500-7000); Neutrophils Percent Auto 66.7 % (50-75); Platelet Count 264 X10^3/uL (150-400); Red Blood Cell Count 4.47 X10^6/uL (4.0-5.2); Red Cell Distribution Width 13.5 % (11.6-14.8); White Blood Cell Count 5.6 X10^3/uL (4.5-11.0)
[2022-04-13 09:24] LABS: Alanine Aminotransferase 26 IU/L (<35); Albumin 4.3 g/dL (3.5-5.0); Albumin Globulin Ratio 1.6 (1.0-2.8); Alkaline Phosphatase 63 U/L (38-126); Aspartate Aminotransferase 27 IU/L (14-36); Bilirubin Total 0.5 mg/dL (0.2-1.3); Blood Urea Nitrogen 12 mg/dL (7-17); Calcium 9.1 mg/dL (8.4-10.2); Carbon Dioxide 33 mmol/L (22-32); Chloride 102 mmol/L (98-107); Cholesterol 241 mg/dL (140-199); Estimated Glomerular Filt Rate > 60 mL/min (>60); Globulin 2.7 g/dL (1.7-4.1); Glucose 97 mg/dL (80-110); HDL Cholesterol 78 mg/dL (40-60); HEMOLYSIS < 15 (0-50); LDL Cholesterol Calculated 135 mg/dL (<100); Potassium 4.2 mmol/L (3.4-5.1); Sodium 139 mmol/L (137-145); Triglycerides 138 mg/dL (35-150)
== END ==
PROVIDERS: PCP Family Medicine; Referring Provider Physician Assistant; Visit Provider Physician Assistant
DX: Z13.9 Encounter for screening, unspecified (principal); M81.0 Age-related osteoporosis without current pathological fracture; I10 Essential (primary) hypertension; E78.5 Hyperlipidemia, unspecified; G47.33 Obstructive sleep apnea (adult) (pediatric); K21.9 Gastro-esophageal reflux disease without esophagitis
CPT/HCPCS: 36415; 80053; 80061; 85025

== ENCOUNTER → 2022-05-28 09:10 | Outpatient (CLI) | payer MEDICARE, OTHER, SELFPAY ==
[2022-05-28 13:26] LABS: COVID19 -Nasal RAPID Negative (Negative)
== END ==
PROVIDERS: PCP Family Medicine; Visit Provider Surgery
DX: Z20.822 Contact with and (suspected) exposure to COVID-19 (principal); Z01.812 Encounter for preprocedural laboratory examination
CPT/HCPCS: 87635; C9803

== ENCOUNTER 2022-05-29 07:15 | Day surgery (SDC) | payer MEDICARE, OTHER, SELFPAY ==
--- NOTE | 2022-05-29 | PATH_ITS ---
[facility] Accession Number: [id number] No. of containers..01 Tissue . 01 Material submitted: . rectum - RECTAL POLYP . 01 Diagnosis: Rectal Polyp, Biopsy: Hyperplastic polyp. MRV 05/30/2022 1828 Local . 01 Electronically signed: . Cristiano De La Cruz MD, PhD, Pathologist NPI- [id number] . 01 Gross description: . RECTAL POLYP: Received in formalin is 1 fragment(s) of smith, soft tissue measuring 0.3 x 0.2 x 0.2 cm submitted entirely in 1 cassette(s) /ANAID 05/29/2022 2322 Local . 01 Pathologist provided ICD-10: K62.1 . 01 CPT . 517500 Specimen Comment: A courtesy copy of this report has been sent to [phone] Performed at: 01 [facility] [address] [place] [address], [place], [place] [id number] MD Remington Cesar MD Phone: [phone]
[2022-05-29 07:45] VITALS: BP 156/97; PULSE 76; RESP 18; TEMP 36.4; O2SAT 96; BMI 23.8
[2022-05-29] MEDS: LACTATED RINGERS 1,000 ML 200 ML IV (08:09)
--- NOTE | 2022-05-29 08:20 | P.HP_ITS ---
History of Present Illness History of Present Illness Date Patient Seen: 05/29/22 Time Patient Seen: 08:20 Chief complaint: SDC Narrative: The patient presents for colorectal screening. They have never had any previous examination for such. No personal or family history of colon cancer. One year ago she was having altered bowel habits notably diarrhea but this has subsequently resolved. No unexplained weight loss, change in bowel habits, diarrhea, constipation, melena, hematochezia, or bright red blood per rectum. Patient History Medical History ADHD (attention deficit hyperactivity disorder) Anxiety (1984) Chicken pox Chronic cough (~1998) Chronic headaches (~1979) Depression (1984) Esophageal ring (2001) Esophageal web (2001) GERD (gastroesophageal reflux disease) Herpes (1979) Hyperlipidemia Hypertension Measles Migraines (~1979) Restrictive lung disease Surgical History Anesthesia complication History of Hernan fundoplication History of repair of hiatal hernia (1997) Status post appendectomy (1969) Status post delivery (1987) Status post endoscopy (1998) Status post hysterectomy (1997) Status post laparoscopy (1985) Status post wrist surgery (1989) Family & Social History Family History Father Heart disease Mother Age: 101 PAD (peripheral artery disease) Heart disease Hypertension Sister Hypertension Social History: household members spouse Tobacco & Substance use: Smoking Status Never smoker alcohol intake current alcohol intake frequency 0-2 drinks per day Substance Use Type does not use Meds Home Medications and Allergies Home Medications Medication Instructions Recorded Confirmed Type ibuprofen 200 mg tablet 400 mg PO Q4-6H PRN Pain (Scale 09/17/18 05/29/22 History Score 4-6) zoledronic acid 5 mg/100 mL in See Rx Instructions .Route .COMPLEX 03/25/19 05/29/22 History mannitol 5 %-water intravenous piggybck (Reclast) albuterol sulfate 90 mcg/actuation 2 puff inhalation Q4-6H PRN 01/07/20 05/29/22 Rx aerosol inhaler shortness of breath or wheezing #18 grams clobetasol 0.05 % topical ointment 1 applic topical BEDTIME #60 grams 09/26/21 05/29/22 Rx bupropion HCl 450 mg 24 hr tablet, 450 mg PO DAILY #90 tabs 02/05/22 05/29/22 Rx extended release hydrochlorothiazide 25 mg tablet See Rx Instructions .Route 02/05/22 05/29/22 Rx .COMPLEX #90 tabs lisinopril 20 mg tablet 20 mg PO DAILY #90 tabs 02/05/22 05/29/22 Rx simvastatin 20 mg tablet See Rx Instructions .Route 02/05/22 05/29/22 Rx .COMPLEX #90 tabs trazodone 50 mg tablet See Rx Instructions .Route 02/07/22 05/29/22 Rx .COMPLEX #90 tabs meloxicam 15 mg tablet See Rx Instructions .Route 02/08/22 05/29/22 Rx .COMPLEX #14 tabs amlodipine 5 mg tablet 5 mg PO DAILY #90 tabs 03/20/22 05/29/22 Rx omeprazole 40 mg capsule,delayed See Rx Instructions .Route 05/08/22 05/29/22 Rx release .COMPLEX #180 caps scopolamine base 1 mg over 3 days 1 patch transdermal Q3D PRN motion 05/08/22 05/29/22 Rx transdermal patch (Transderm-Scop) sickness #4 ea fluticasone propionate 50 1 spray intranasal BID PRN 05/29/22 05/29/22 History mcg/actuation nasal Allergic Symptoms spray,suspension Allergies Allergy/AdvReac Type Severity Reaction Status Date / Time Sulfa (Sulfonamide Allergy Severe Anaphylaxis Verified 05/29/22 07:33 Antibiotics) Penicillins [PENICILLINS] Allergy Unknown Hives Verified 05/29/22 07:33 levofloxacin AdvReac Severe sore Verified 05/29/22 07:33 achilles tendon for 3 mos. Exam Vital Signs (past 8 hours): - 05/29/22 07:45 Temperature 97.6 F Pulse Rate 76 Respiratory Rate 18 Blood Pressure 156/97 H Pulse Oximetry 96 Oxygen Delivery Method Room Air Oxygen Delivery Method Room Air Narrative Exam Narrative: General adult woman alert oriented no acute distress Chest nonlabored respiration Abdomen soft midline scar nontender Assessment & Plan Assessment and plan (1) Screening for colon cancer: Status: Acute Assessment & Plan narrative: The patient requires colorectal screening and colonoscopy is recommended. Technical details were discussed. Risks, benefits, alternatives explained. Risks including but not limited to myocardial infarction, aspiration, bleeding, pain, missed lesion, incomplete examination, need for further radiographic studi es, colonic perforation, and need for major abdominal surgery were discussed. All questions were answered to their satisfaction, and they are in agreement with this plan. Time Spent With Patient Critical Care time: I spent a total of [] minutes of critical care time on this patient's care today; this time is exclusive of procedural time.
--- NOTE | 2022-05-29 08:22 | PM.OP.COLON ---
Operative Date/Time/Diagnoses Date of procedure: 05/29/22 Time of procedure: 08:22 Pre-op diagnosis: Screening colonoscopy Post-op diagnosis: same Procedure & Clinicians Study performed: Colonoscopy Same procedure as scheduled: Yes Indications: Screening Surgeon: Mikey Mosqueda Procedure Notes Procedure in detail: Medications: Conscious sedation using 4mg IV midazolam and 50mcg IV of fentanyl The history and physical was performed/updated and the patient is ASA class is 2. The procedure was discussed in detail with the patient. Potential risks complications including infection, bleeding, missed diagnosis, perforation, need for surgery, and were explained. Their questions were answered and informed consent was obtained. Patient was brought to the procedure room and placed standard monitoring equipment. The patient's vital signs were monitored continuously throughout the entire procedure. Prior to starting time-out was performed. The patient was placed in the left lateral recumbent position. Procedural sedation was administered. Examination began with a thorough inspection of the perianal area there was no evidence of fissures, fistulae, external hemorrhoids or cutaneous malignancy. The colonoscopy scope was then placed into the anal canal and was advanced to the cecum, which was identified by the ileocecal valve, the appendiceal orifice and the confluence of the taenia. The scope was then slowly withdrawn examining colon thoroughly in all directions, irrigating it of any residual stool. FINDINGS 1. Rectum 3 mm sessile polyp removed with biopsy forceps 2. Diverticulosis-mild 3. Internal hemorrhoids grade1 The patient tolerated the procedure well. They will be discharged once criteria are met. The prep was of good/excellent quality. The withdrawl time was 9 minutes. The sedation time was 21minutes. Specimen(s): other (Rectal polyp) Complications: none Impression: Diverticulosis, rectal polyp Post-procedure Recommendations: High fiber diet Plan for aftercare: Will notify with biopsy results Disposition: same day surgery
[2022-05-29] MEDS: ONDANSETRON 4 MG/2 ML INJ IV (08:28)
[2022-05-29] MEDS: MIDAZOLAM 5 MG/5 ML VIAL 4 MG IV (08:35)
[2022-05-29] MEDS: fentaNYL 100 MCG/2 ML INJ 50 MCG IV (08:35)
[2022-05-29 08:54] VITALS: BP 132/82; PULSE 75; RESP 16; TEMP 36.2; O2SAT 99
[2022-05-29 08:59] VITALS: BP 129/84; PULSE 68; RESP 18; O2SAT 96
[2022-05-29 09:05] VITALS: BP 133/79; PULSE 76; RESP 16; O2SAT 97
[2022-05-29 09:10] VITALS: BP 135/93; PULSE 77; RESP 18; TEMP 36.8; O2SAT 97
[2022-05-29 09:22] VITALS: BP 132/96; PULSE 69; RESP 14; TEMP 36.8; O2SAT 95
== END 2022-05-29 09:37 | disposition home or self-care (01) ==
PROVIDERS: PCP Family Medicine; Referring Provider Surgery; Visit Provider Surgery
PROC: 0DJD8ZZ Inspection of Lower Intestinal Tract, Via Natural or Artificial Opening Endoscopic (ICD-10-PCS; CPT 45378; principal; 2022-05-29 08:30)
DX: Z12.11 Encounter for screening for malignant neoplasm of colon (principal); K57.30 Diverticulosis of large intestine without perforation or abscess without bleeding; K64.0 First degree hemorrhoids; K62.1 Rectal polyp
CPT/HCPCS: 45380; 99152; J2250; J2405; J3010

== ENCOUNTER → 2022-09-10 08:39 | Outpatient (CLI) | payer MEDICARE, OTHER, SELFPAY ==
[2022-09-10 09:29] LABS: COVID-19 CEPHEID 4-PLEX PCR Negative (Negative); Influenza A - CEPHEID Flu A NEGATIVE (NEGATIVE); Influenza B - CEPHEID Flu B NEGATIVE (NEGATIVE); Respiratory Syncytial Virus Negative (Negative)
== END ==
PROVIDERS: PCP Family Medicine; Visit Provider Nurse Practitioner Family
DX: R05.9 Cough, unspecified (principal); Z20.822 Contact with and (suspected) exposure to COVID-19
CPT/HCPCS: 0241U

== ENCOUNTER 2022-09-11 11:04 | Emergency (ER) | payer MEDICARE, OTHER, SELFPAY ==
[2022-09-11 11:45] VITALS: BP 173/97; PULSE 98; RESP 16; TEMP 36.8; O2SAT 96; BMI 24.7
[2022-09-11 15:49] VITALS: BP 152/90; PULSE 97; O2SAT 93
--- NOTE | 2022-09-18 12:55 | ED_ITS ---
HPI - URI/Sore Throat <Charles Melo PA-C - Last Filed: 09/18/22 13:06> General Chief Complaint: Upper Respiratory Symptoms Stated Complaint: ears,throat,cough, feels horrible Time Seen by Provider: 09/11/22 12:18 Source: patient Mode of arrival: Ambulatory History of Present Illness HPI Narrative: 67-year-old female with past medical history hypertension, hyperlipidemia, GERD, osteoporosis, depression, anxiety presents to the ED with 1 week of sore throat, cough, ear pain. Patient was seen in the walk-in clinic yesterday for the same symptoms, was prescribed benzonatate and Delsym. Patient presents to the ED today since her symptoms have not improved and she is additionally also experiencing bilateral ear pain. Patient denies fever, chills, chest pain, shortness of breath, nausea, vomiting, diarrhea. Related Data Home Medications Medication Instructions Recorded Confirmed ibuprofen 200 mg tablet 400 mg PO Q4-6H PRN Pain (Scale 09/17/18 09/10/22 Score 4-6) zoledronic acid 5 mg/100 mL in See Rx Instructions .Route .COMPLEX 03/25/19 09/10/22 mannitol 5 %-water intravenous piggybck (Reclast) fluticasone propionate 50 1 spray intranasal BID PRN 05/29/22 09/10/22 mcg/actuation nasal Allergic Symptoms spray,suspension Previous Rx's Medication Instructions Recorded albuterol sulfate 90 mcg/actuation 2 puff inhalation Q4-6H PRN 01/07/20 aerosol inhaler shortness of breath or wheezing #18 grams omeprazole 40 mg capsule,delayed See Rx Instructions .Route 05/08/22 release .COMPLEX #180 caps scopolamine base 1 mg over 3 days 1 patch transdermal Q3D PRN motion 05/08/22 transdermal patch (Transderm-Scop) sickness #4 ea bupropion HCl 300 mg 24 hr tablet, 300 mg PO DAILY #90 tabs 07/03/22 extended release clobetasol 0.05 % topical ointment See Rx Instructions topical 07/03/22 BEDTIME #60 grams trazodone 50 mg tablet See Rx Instructions .Route 08/06/22 .COMPLEX #90 tabs meloxicam 15 mg tablet See Rx Instructions .Route 08/09/22 .COMPLEX #14 tabs hydrochlorothiazide 25 mg tablet See Rx Instructions .Route 08/22/22 .COMPLEX #90 tabs lisinopril 20 mg tablet 20 mg PO DAILY #90 tabs 08/22/22 simvastatin 20 mg tablet See Rx Instructions .Route 08/22/22 .COMPLEX #90 tabs benzonatate 100 mg capsule 100 mg PO BID PRN cough #20 caps 09/10/22 azithromycin 250 mg tablet See Rx Instructions PO .COMPLEX #6 09/11/22 (Zithromax Z-Chris) tabs Allergies Allergy/AdvReac Type Severity Reaction Status Date / Time Sulfa (Sulfonamide Allergy Severe Anaphylaxis Verified 09/11/22 11:45 Antibiotics) Penicillins [PENICILLINS] Allergy Unknown Hives Verified 09/11/22 11:45 levofloxacin AdvReac Severe sore Verified 09/11/22 11:45 achilles tendon for 3 mos. Review of Systems <Charles Melo PA-C - Last Filed: 09/18/22 13:06> Review of Systems ROS Unobtainable: All systems reviewed & are unremarkable except as noted in HPI and below Constitutional Constitutional: Denies chills, Denies fatigue, Denies fever(s), Denies frequent falls, Denies lethargy and Denies weakness Eyes Eyes: Denies change in vision, Denies eye discharge, Denies irritation and Denies loss of vision ENT Ears, Nose, Mouth, and Throat: Denies change in voice, Denies dizziness, Reports otalgia, Denies neck pain, Reports sore throat and Denies throat swelling Cardiovascular Cardiovascular: Denies chest pain, Denies irregular heart rhythm, Denies lightheadedness, Denies palpitations, Denies dyspnea, Denies dyspnea on exertion and Denies orthopnea Respiratory Respiratory: Reports cough, Denies dyspnea, Denies dyspnea on exertion and Denies wheezing Gastrointestinal Gastrointestinal: Denies abdominal pain, Denies change in bowel habits, Denies diarrhea, Denies nausea and Denies vomiting Genitourinary Genitourinary: Denies hematuria, Denies flank pain, Denies urinary incontinence and Denies urinary urgency Musculoskeletal Musculoskeletal: Denies back pain, Denies muscle weakness, Denies neck pain, Denies numbness and Denies tingling Integumentary/Breasts Skin/Breast: Denies pruritus, Denies erythema, Denies rash and Denies wounds Neurologic Neurologic: Denies behavioral changes, Denies confusion, Denies dizziness, Denies frequent falls, Denies loss of vision, Denies numbness, Denies tingling and Denies weakness Psychiatric Psychiatric: Denies anxiety, Denies behavioral changes, Denies confusion, Denies depression, Denies homicidal ideation and Denies suicidal ideation Endocrine Endocrine: Denies fatigue, Denies flushing and Denies palpitations Hematologic/Lymphatic Hematologic/Lymphatic: Denies easy bruising Allergic/Immunologic Allergic/Immunologic: Denies urticaria, Denies throat swelling and Denies wheezing Patient History <Charles Melo PA-C - Last Filed: 09/18/22 13:06> Medical History ADHD (attention deficit hyperactivity disorder) Anxiety (1984) Chicken pox Chronic cough (~1998) Chronic headaches (~1979) Depression (1984) Esophageal ring (2001) Esophageal web (2001) GERD (gastroesophageal reflux disease) Herpes (1979) Hyperlipidemia Hypertension Measles Migraines (~1979) Restrictive lung disease Surgical History Anesthesia complication History of Hernan fundoplication History of repair of hiatal hernia (1997) Status post appendectomy (1969) Status post delivery (1987) Status post endoscopy (1998) Status post hysterectomy (1997) Status post laparoscopy (1985) Status post wrist surgery (1989) Family History Father Heart disease Mother Age: 102 PAD (peripheral artery disease) Heart disease Hypertension Sister Hypertension Social History marital status: number of children: 1 household members: spouse education level: college occupational status: employed Smoking Status: Never smoker alcohol intake: current substance use type: does not use Smoking Status: Never smoker alcohol intake frequency: 0-2 drinks per day Alcohol type: wine and hard liquor Substance Use Type: does not use Exam <Charles Melo PA-C - Last Filed: 09/18/22 13:06> Narrative Exam Narrative: Const General:?cooperative, healthy appearing and comfortable [facility] Head:?normal to inspection Ears:?hearing grossly normal bilaterally; left tympanum bulging and erythematous; right tympanum appears normal Nose:?external nose normal Face and sinus:?normal facial exam and sinuses nontender Mouth:?oral mucosae normal Throat:?posterior oropharynx normal Eyes General:?appearance normal, both eyes and all related structures Neck Neck:?normal visual inspection and no lymphadenopathy noted Resp Effort & Inspection:?normal respiratory effort Auscultation:?clear to auscultation bilaterally Cardio Rate:?regular rate Rhythm:?regular rhythm Neuro General:?patient alert, patient awake and patient oriented x3 Initial Vital Signs Initial Vital Signs: Vital Signs Temperature 98.2 F 09/11/22 11:45 Pulse Rate 98 H 09/11/22 11:45 Respiratory Rate 16 09/11/22 11:45 Blood Pressure 173/97 H 09/11/22 11:45 Pulse Oximetry 96 09/11/22 11:45 Oxygen Delivery Method 09/11/22 11:45 <Cristiano Wallace MD - Last Filed: 09/19/22 21:44> Initial Vital Signs Initial Vital Signs: Vital Signs Temperature 98.2 F 09/11/22 11:45 Pulse Rate 98 H 09/11/22 11:45 Respiratory Rate 16 09/11/22 11:45 Blood Pressure 173/97 H 09/11/22 11:45 Pulse Oximetry 96 09/11/22 11:45 Oxygen Delivery Method 09/11/22 11:45 MDM - URI/Sore Throat <Charles Melo PA-C - Last Filed: 09/18/22 13:06> Lab Data Labs: Point of Care Testing Rapid Strep A Negative MDM Narrative Medical decision making narrative: 67-year-old female with past medical history hypertension, hyperlipidemia, GERD, osteoporosis, depression, anxiety presents to the ED with 1 week of sore throat, cough, ear pain. Concern for viral URI versus otitis media versus strep pharyngitis versus viral pharyngitis. Physical exam consistent with otitis media of the left ear. Will prescribe antibiotics. Patient was negative for strep, posterior oropharynx normal on exam. ED return precautions discussed with patient. Patient verbalized understanding. Medical records reviewed:??yes ? Independently reviewed EKG as above: n/a ? Disposition: see below, along with detailed discharge instructions that have b een reviewed with patient as well as indications for ED re-evaluation and additional outpatient follow up <Cristiano Wallace MD - Last Filed: 09/19/22 21:44> Lab Data Labs: Point of Care Testing Rapid Strep A Negative Discharge Plan Departure Patient Disposition: Home Clinical Impression: Upper respiratory infection, Otitis media Instructions: Middle Ear Infection, DI for Viral Upper Respiratory Infection -- Adult Activity Restrictions/Additional Instructions: You were evaluated in the ED today for a cough, ear pain, sore throat. You tested negative for strep throat. You have been diagnosed with a ear infection of the left ear. You are being prescribed a Z-Chris for it. Please complete the full course of antibiotics. You may take 1000 mg of Tylenol every 8 hours, 800 mg of ibuprofen every 8 hours for aches and pains and fever. If you are cou ghing, you may take benzonatate and Delsym. Return to the ED if you experience any chest pain, trouble breathing. Prescriptions: New azithromycin [Zithromax Z-Chris] 250 mg tablet See Rx Instructions .ROUTE .COMPLEX Qty: 6 0RF Rx Instructions: For 250 mg dose pack: take 500 mg today (day 1), then 250 mg for 4 days (days 2-5) No Action zoledronic [id number] [Reclast] 5 mg/100 mL piggyback See Rx Instructions .ROUTE .COMPLEX Label Comments: to be done yearly Rx Instructions: TAKES YEARLY bupropion HCl 300 mg tablet extended release 24 hr 300 mg PO DAILY Qty: 90 3RF clobetasol 0.05 % ointment See Rx Instructions topical BEDTIME Qty: 60 1RF Rx Instructions: Apply nightly for six weeks then decrease to 2-3x/week topically bedtime; benzonatate 100 mg capsule 100 mg PO BID PRN (Reason: cough) Qty: 20 0RF albuterol sulfate 90 mcg/actuation HFA aerosol inhaler 2 puff INHALATION Q4-6H PRN (Reason: shortness of breath or wheezing) Qty: 18 0RF scopolamine base [Transderm-Scop] 1 mg over 3 days patch 3 day 1 patch transdermal Q3D PRN (Reason: motion sickness) Qty: 4 0RF omeprazole 40 mg capsule,delayed release(DR/EC) See Rx Instructions .ROUTE .COMPLEX Qty: 180 3RF Dose Instruction: TAKE 1 CAPSULE BY MOUTH TWICE DAILY Rx Instructions: TAKE 1 CAPSULE BY MOUTH DAILY trazodone 50 mg tablet See Rx Instructions .ROUTE .COMPLEX Qty: 90 3RF Dose Instruction: TAKE 1 TABLET BY MOUTH AT BEDTIME NEEDED FOR INSOMNIA Rx Instructions: TAKE 1 TABLET BY MOUTH AT BEDTIME NEEDED FOR INSOMNIA meloxicam 15 mg tablet See Rx Instructions .ROUTE .COMPLEX Qty: 14 0RF Dose Instruction: TAKE ONE TABLET BY MOUTH DAILY WITH MEAL Rx Instructions: TAKE ONE TABLET BY MOUTH DAILY WITH MEAL lisinopril 20 mg tablet 20 mg PO DAILY Qty: 90 2RF hydrochlorothiazide 25 mg tablet See Rx Instructions .ROUTE .COMPLEX Qty: 90 2RF Dose Instruction: TAKE ONE TABLET BY MOUTH DAILY Rx Instructions: TAKE ONE TABLET BY MOUTH DAILY simvastatin 20 mg tablet See Rx Instructions .ROUTE .COMPLEX Qty: 90 2RF Dose Instruction: TAKE ONE TABLET BY MOUTH AT BEDTIME Rx Instructions: TAKE ONE TABLET BY MOUTH AT BEDTIME ibuprofen 200 mg Tablet 400 mg PO Q4-6H PRN (Reason: Pain (Scale Score 4-6)) Hold Instructions: trying Meloxicam fluticasone propionate 50 mcg/actuation spray,suspension 1 spray Intranasal BID PRN (Reason: Allergic Symptoms) Referrals: Una Flaherty DO [Primary Care Provider] - Stand Alone Forms: Patient Portal/API <Cristiano Wallace MD - Last Filed: 09/19/22 21:44> Cosign ED Attending Coslatishaature Attestation: I was immediately available in the department for consultation. Documentation has been reviewed. I agree with assessment and plan.
== END 2022-09-11 15:53 | disposition home or self-care (01) ==
PROVIDERS: Emergency Provider Student in an Organized Health Care Education/Training Program; PCP Family Medicine
DX: J06.9 Acute upper respiratory infection, unspecified (principal); H66.92 Otitis media, unspecified, left ear
CPT/HCPCS: 87880; 99281

== ENCOUNTER → 2022-11-21 08:30 | Outpatient (CLI) | payer MEDICARE, OTHER, SELFPAY ==
[2022-11-21 10:56] LABS: BUN Creatinine Ratio 25.3 (6-22); Blood Urea Nitrogen 20 mg/dL (7-17); Calcium 9.1 mg/dL (8.4-10.2); Carbon Dioxide 33 mmol/L (22-32); Chloride 98 mmol/L (98-107); Estimated Glomerular Filt Rate > 60 mL/min (>60); Glucose 84 mg/dL (80-110); HEMOLYSIS < 15 (0-50); Potassium 4.2 mmol/L (3.4-5.1); Sodium 137 mmol/L (137-145)
== END ==
PROVIDERS: PCP Family Medicine; Referring Provider Family Medicine; Visit Provider Family Medicine
DX: E87.6 Hypokalemia (principal)
CPT/HCPCS: 36415; 80048

== ENCOUNTER → 2023-06-28 10:28 | Outpatient (CLI) | payer MEDICARE, OTHER, SELFPAY ==
[2023-06-28 12:01] LABS: Add Manual Diff / Slide Review NO; Basophils Absolute Auto 0 /uL (0-100); Basophils Percent Auto 0.2 % (0-2); Eosinophils Absolute Auto 100 /uL (0-450); Eosinophils Percent Auto 2.2 % (2-4); Hematocrit 41.2 % (36-46); Hemoglobin 13.9 g/dL (12.0-16.0); Lymphocytes Absolute Auto 1600 /uL (1100-4500); Mean Corpuscular HGB Conc 33.9 % (30-36); Mean Corpuscular Hemoglobin 30.4 PG (26-34); Mean Corpuscular Volume 89.7 fL (80-100); Monocytes Absolute Auto 400 /uL (0-900); Monocytes Percent Auto 6.6 % (3-14); Neutrophils Absolute Auto 3300 /uL (1500-7000); Platelet Count 248 X10^3/uL (150-400); Red Blood Cell Count 4.59 X10^6/uL (4.0-5.2); Red Cell Distribution Width 13.4 % (11.6-14.8); White Blood Cell Count 5.3 X10^3/uL (4.5-11.0)
[2023-06-28 14:51] LABS: Alanine Aminotransferase 37 IU/L (<35); Albumin 4.6 g/dL (3.5-5.0); Albumin Globulin Ratio 1.4 (1.0-2.8); Alkaline Phosphatase 62 U/L (38-126); Aspartate Aminotransferase 38 IU/L (14-36); BUN Creatinine Ratio 27.5 (6-22); Bilirubin Total 0.5 mg/dL (0.2-1.3); Blood Urea Nitrogen 22 mg/dL (7-17); Calcium 9.6 mg/dL (8.4-10.2); Carbon Dioxide 29 mmol/L (22-32); Chloride 101 mmol/L (98-107); Estimated Glomerular Filt Rate > 60 mL/min (>60); Globulin 3.3 g/dL (1.7-4.1); Glucose 98 mg/dL (80-110); HEMOLYSIS < 15 (0-50); Potassium 3.5 mmol/L (3.4-5.1); Sodium 139 mmol/L (137-145); Total Protein 7.9 g/dL (6.3-8.2)
== END ==
PROVIDERS: PCP Student in an Organized Health Care Education/Training Program; Referring Provider Student in an Organized Health Care Education/Training Program; Visit Provider Student in an Organized Health Care Education/Training Program
DX: R23.2 Flushing (principal); R63.5 Abnormal weight gain
CPT/HCPCS: 36415; 80053; 84443; 85025

== ENCOUNTER → 2023-07-19 14:04 | Outpatient (CLI) | payer MEDICARE, OTHER, SELFPAY ==
--- NOTE | 2023-07-19 | DI.MG.S_ITS ---
BILATERAL DIGITAL SCREENING MAMMOGRAM 3D/2D WITH CAD: 07/19/2023 CLINICAL: Routine screening. Family history of breast cancer. Comparison is made to exams dated: 03/10/2021 mammogram, 02/21/2019 mammogram, and 08/16/2017 mammogram - [facility]. There are scattered areas of fibroglandular density in both breasts (category b / 25%-50% glandular tissue). Current study was also evaluated with a Computer Aided Detection (CAD) system. No significant masses, calcifications, or other findings are seen in either breast. There has been no significant interval change. IMPRESSION: NEGATIVE There is no mammographic evidence of malignancy. A 1 year screening mammogram is recommended. Based on the Tyrer Cuzick model (a risk assessment model) the patient's lifetime risk is 8.2% and her 10 year risk is 5.2%. According to the ACR, ACS, and NCCN guidelines, an annual breast MRI exam along with mammogram is recommended if the patient's lifetime risk is 20% or greater. This exam was interpreted at Station ID: [id number]. NOTE: For mammograms, a report in lay terms will be sent to the patient. Approximately 15% of breast malignancies will not be visualized mammographically. In the management of a palpable breast mass, a negative mammogram must not discourage biopsy of a clinically suspicious lesion. Electronically Signed By: Louis wynn/ronnie:07/19/2023 20:02:29 letter sent: Normal Exam ACR BI-RADS Category 1: Negative [id number]
== END ==
PROVIDERS: PCP Student in an Organized Health Care Education/Training Program; Referring Provider Student in an Organized Health Care Education/Training Program; Visit Provider Student in an Organized Health Care Education/Training Program
DX: Z12.31 Encounter for screening mammogram for malignant neoplasm of breast (principal); Z80.3 Family history of malignant neoplasm of breast
CPT/HCPCS: 77063; 77067

== ENCOUNTER → 2024-05-28 08:02 | Outpatient (CLI) | payer MEDICARE, OTHER, SELFPAY ==
[2024-05-28 09:09] LABS: Add Manual Diff / Slide Review NO; Basophils Absolute Auto 0 /uL (0-100); Basophils Percent Auto 0.3 % (0-2); Eosinophils Absolute Auto 100 /uL (0-450); Eosinophils Percent Auto 1.9 % (2-4); Hematocrit 42.1 % (36-46); Hemoglobin 14.1 g/dL (12.0-16.0); Lymphocytes Absolute Auto 1200 /uL (1100-4500); Lymphocytes Percent Auto 22.4 % (25-40); Mean Corpuscular HGB Conc 33.5 % (30-36); Mean Corpuscular Hemoglobin 30.5 PG (26-34); Mean Corpuscular Volume 90.9 fL (80-100); Monocytes Absolute Auto 300 /uL (0-900); Monocytes Percent Auto 6.1 % (3-14); Neutrophils Absolute Auto 3800 /uL (1500-7000); Neutrophils Percent Auto 69.3 % (50-75); Platelet Count 239 X10^3/uL (150-400); Red Blood Cell Count 4.63 X10^6/uL (4.0-5.2); Red Cell Distribution Width 13.4 % (11.6-14.8); White Blood Cell Count 5.5 X10^3/uL (4.5-11.0)
[2024-05-28 10:02] LABS: Alanine Aminotransferase 40 IU/L (<35); Albumin 4.2 g/dL (3.5-5.0); Albumin Globulin Ratio 1.6 (1.0-2.8); Alkaline Phosphatase 81 U/L (38-126); Aspartate Aminotransferase 43 IU/L (14-36); BUN Creatinine Ratio 22.1 (6-22); Bilirubin Total 0.5 mg/dL (0.2-1.3); Blood Urea Nitrogen 17 mg/dL (7-17); Calcium 9.7 mg/dL (8.4-10.2); Carbon Dioxide 32 mmol/L (22-32); Chloride 104 mmol/L (98-107); Cholesterol 213 mg/dL (140-199); Estimated Glomerular Filt Rate > 60 mL/min (>60); Globulin 2.7 g/dL (1.7-4.1); Glucose 105 mg/dL (80-110); HDL Cholesterol 71 mg/dL (40-60); HEMOLYSIS < 15 (0-50); LDL Cholesterol Calculated 120 mg/dL (<100); Sodium 141 mmol/L (137-145); Total Protein 6.9 g/dL (6.3-8.2); Triglycerides 112 mg/dL (35-150)
[2024-05-28 11:09] LABS: Hemoglobin A1C% w Est Avg Glu 5.7 % (4.0-6.0)
== END ==
PROVIDERS: PCP Student in an Organized Health Care Education/Training Program; Referring Provider Student in an Organized Health Care Education/Training Program; Visit Provider Student in an Organized Health Care Education/Training Program
DX: I10 Essential (primary) hypertension (principal); E78.2 Mixed hyperlipidemia
CPT/HCPCS: 36415; 80053; 80061; 83036; 85025

== ENCOUNTER → 2024-06-29 11:54 | Outpatient (CLI) | payer MEDICARE, OTHER, SELFPAY ==
--- NOTE | 2024-06-29 11:56 | DI.MG.S_ITS ---
BILATERAL DIGITAL DIAGNOSTIC MAMMOGRAM 3D/2D: 06/29/2024 CLINICAL: Bilateral Axillary Mass. Comparison is made to exams dated: 07/19/2023 mammogram, 02/21/2019 mammogram, and 03/10/2021 mammogram - [facility]. There are scattered areas of fibroglandular density (category b / 25%-50% glandular tissue). No significant masses, calcifications, or other findings are seen in either breast. IMPRESSION: INCOMPLETE: NEED ADDITIONAL IMAGING EVALUATION There is no abnormality seen in either axilla to correspond with the areas of clinical concern, however, ultrasound is recommended. Based on the Tyrer Cuzick model (a risk assessment model) the patient's lifetime risk is 10.0% and her 10 year risk is 6.9%. According to the ACR, ACS, and NCCN guidelines, an annual breast MRI exam along with mammogram is recommended if the patient's lifetime risk is 20% or greater. This exam was interpreted at Station ID: [id number]. NOTE: For mammograms, a report in lay terms will be sent to the patient. Approximately 15% of breast malignancies will not be visualized mammographically. In the management of a palpable breast mass, a negative mammogram must not discourage biopsy of a clinically suspicious lesion. Electronically Signed By: Simba Hare M.D. lc/:06/29/2024 13:32:44 letter sent: Additional Imaging Needed ACR BI-RADS Category 0: Incomplete: Need Additional Imaging Evaluation
--- NOTE | 2024-06-29 11:56 | DI.US.S_ITS ---
ULTRASOUND OF RIGHT AXILLA: 06/29/2024 CLINICAL: Palpable right axilla lump. Comparison is made to exams dated: 06/29/2024 mammogram, 07/19/2023 mammogram, 03/10/2021 mammogram, and 02/21/2019 mammogram - [facility]. Color flow and real-time ultrasound of the right axilla were performed. Rivera scale images of the real-time examination were reviewed. IMPRESSION: NEGATIVE There is no sonographic evidence of malignancy. There is no abnormality seen in the right axilla to correspond with the area of clinical concern in the, however, clinical correlation and clinical followup are recommended. This exam was interpreted at Station ID: [id number]. Electronically Signed By: Simba Hare M.D. lc/:06/29/2024 13:34:17 ACR BI-RADS Category 1: Negative
--- NOTE | 2024-06-29 11:56 | DI.US.S_ITS ---
ULTRASOUND OF LEFT AXILLA: 06/29/2024 CLINICAL: Palpable left axilla lumps, decreasing. Comparison is made to exams dated: 06/29/2024 mammogram, 07/19/2023 mammogram, and 03/10/2021 mammogram - [facility]. Color flow and real-time ultrasound of the left axilla were performed. Rivera scale images of the real-time examination were reviewed. IMPRESSION: NEGATIVE There is no sonographic evidence of malignancy. There is no abnormality seen in the left axilla to correspond with the area of clinical concern, however, clinical correlation and clinical followup are recommended. Return to annual mammogram screening schedule is recommended. This exam was interpreted at Station ID: [id number]. Electronically Signed By: Simba Hare M.D. lc/:06/29/2024 13:33:33 letter sent: Clinical Evaluation ACR BI-RADS Category 1: Negative
== END ==
PROVIDERS: PCP Student in an Organized Health Care Education/Training Program; Referring Provider Student in an Organized Health Care Education/Training Program; Visit Provider Student in an Organized Health Care Education/Training Program
DX: R92.2 Inconclusive mammogram (principal); N64.59 Other signs and symptoms in breast; R22.30 Localized swelling, mass and lump, unspecified upper limb
CPT/HCPCS: 76882; 77066; G0279

== ENCOUNTER → 2024-12-07 07:28 | Outpatient (CLI) | payer MEDICARE, OTHER, SELFPAY ==
[2024-12-07 08:14] LABS: Alanine Aminotransferase 35 IU/L (<35); Albumin 4.4 g/dL (3.5-5.0); Albumin Globulin Ratio 1.6 (1.0-2.8); Alkaline Phosphatase 68 U/L (38-126); Aspartate Aminotransferase 40 IU/L (14-36); Bilirubin Total 0.5 mg/dL (0.2-1.3); Blood Urea Nitrogen 18 mg/dL (7-17); Calcium 9.7 mg/dL (8.4-10.2); Carbon Dioxide 31 mmol/L (22-32); Chloride 102 mmol/L (98-107); Estimated Glomerular Filt Rate > 60 mL/min (>60); Globulin 2.7 g/dL (1.7-4.1); Glucose 102 mg/dL (80-110); HEMOLYSIS < 15 (0-50); Potassium 3.5 mmol/L (3.4-5.1); Sodium 140 mmol/L (137-145); Total Protein 7.1 g/dL (6.3-8.2)
== END ==
PROVIDERS: PCP Student in an Organized Health Care Education/Training Program; Referring Provider Student in an Organized Health Care Education/Training Program; Visit Provider Student in an Organized Health Care Education/Training Program
DX: R79.89 Other specified abnormal findings of blood chemistry (principal)
CPT/HCPCS: 36415; 80053

== ENCOUNTER → 2025-05-08 07:35 | Outpatient (CLI) | payer MEDICARE, OTHER, SELFPAY ==
[2025-05-08 08:52] LABS: Add Manual Diff / Slide Review NO; Hematocrit 41.6 % (36-46); Hemoglobin 14.3 g/dL (12.0-16.0); Lymphocytes Absolute Auto 1400 /uL (1100-4500); Mean Corpuscular HGB Conc 34.3 % (30-36); Mean Corpuscular Hemoglobin 31.9 PG (26-34); Mean Corpuscular Volume 93.1 fL (80-100); Platelet Count 241 X10^3/uL (150-400)
[2025-05-08 09:14] LABS: Alanine Aminotransferase 23 IU/L (<35); Albumin 4.4 g/dL (3.5-5.0); Albumin Globulin Ratio 1.6 (1.0-2.8); Alkaline Phosphatase 72 U/L (38-126); Blood Urea Nitrogen 17 mg/dL (7-17); Calcium 9.3 mg/dL (8.4-10.2); Carbon Dioxide 30 mmol/L (22-32); Chloride 102 mmol/L (98-107); Cholesterol 219 mg/dL (140-199); Estimated Glomerular Filt Rate > 60 mL/min (>60); Globulin 2.8 g/dL (1.7-4.1); Glucose 94 mg/dL (70-99); HDL Cholesterol 102 mg/dL (40-60); HEMOLYSIS < 15 (0-50); Potassium 3.9 mmol/L (3.4-5.1); Sodium 142 mmol/L (137-145); Total Protein 7.2 g/dL (6.3-8.2); Triglycerides 86 mg/dL (35-150)
[2025-05-08 09:17] LABS: Microalbumi Creatinin Ratio Ur 54.0 ug/mg CR (<30)
== END ==
PROVIDERS: PCP Student in an Organized Health Care Education/Training Program; Referring Provider Student in an Organized Health Care Education/Training Program; Visit Provider Student in an Organized Health Care Education/Training Program
DX: R79.89 Other specified abnormal findings of blood chemistry (principal); E78.2 Mixed hyperlipidemia; I10 Essential (primary) hypertension
CPT/HCPCS: 36415; 80053; 80061; 82043; 82570; 85025

== ENCOUNTER → 2025-07-27 14:56 | Outpatient (CLI) | payer MEDICARE, OTHER, SELFPAY | PROVIDERS: Family Provider Student in an Organized Health Care Education/Training Program; PCP Student in an Organized Health Care Education/Training Program; Visit Provider Student in an Organized Health Care Education/Training Program | DX: R35.0 Frequency of micturition (principal) | CPT/HCPCS: 87086 ==

== ENCOUNTER 2025-08-19 07:30 | Outpatient (RCR) | payer MEDICARE, OTHER, SELFPAY ==
--- NOTE | 2025-07-14 12:31 | PT.OIE ---
Current Diagnoses Low back pain, unspecified (07/14/25) Past Medical History (Last Updated 09/20/23 @ 10:20 by Leatha Ackerman MD) ADHD (attention deficit hyperactivity disorder) Anxiety (1984) Chicken pox Chronic cough (~1998) Chronic headaches (~1979) Depression (1984) Esophageal ring (2001) Esophageal web (2001) GERD (gastroesophageal reflux disease) Herpes (1979) Hyperlipidemia Hypertension Measles Migraines (~1979) Obstructive sleep apnea syndrome Restrictive lung disease Past Surgical History (Last Reviewed 12/21/22 @ 07:19 by Una Flaherty DO) Anesthesia complication History of Hernan fundoplication History of repair of hiatal hernia (1997) Status post appendectomy (1969) Status post delivery (1987) Status post endoscopy (1998) Status post hysterectomy (1997) Status post laparoscopy (1985) Status post wrist surgery (1989) Visit Care Team Role Provider Type Leatha Ackerman MD Family Provider Physician Primary Care Provider Specialty: Family Practice Obstetrics Address: [address] [place] [address] Email: [email or web address] Lawrence MD Attending Provider Physician Referring Provider Specialty: Orthopedics Orthopedic Surgery Address: [address] [place] [address], [facility] Email: [email or web address] Physical Therapy Initial Evaluation PT OP: Lower Back/Lower Extremity Start: 07/14/25 10:57 Freq: Status: Active Protocol: Document 07/14/25 10:57 EDSON (Rec: 07/14/25 12:31 EDSON [id number]) Out-Patient Physical Therapy Visit Information Visit Information Visit Type Initial Evaluation Visit Start Time 10:55 Visit Stop Time 11:30 Visit Number 1 Number of ELECTRONIC INSTALLER Visits 0 Progress Note Due 08/13/25 OP-PT Subjective Patient Comments Patient Comments History of current diagnosis: Patient presents to PT with reports of chronic L low back/ hip pain that started about 2-3 years ago. She reports that symptoms come and go and are not consistent. She has a history of a tibia and ankle fractures. 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 Member at [employer] but has not gone for a couple years. Pain location: L low back and into hip. Denies any symptoms in her leg or numbness or tingling. Pain description: achy Pain 0-10/10 (current): 4/10 Pain 0-10/10 (worst): 8/10 - when getting out of chair after sitting for extended period Pain 0-10/10 (best): 4/10 Aggravating: Laying supine, getting out of chair, lifting suitcases, walking with a backpack, worse in the morning Alleviating: tylenol, Function prior to injury: Independent with all ADLs Function current: Independent with all ADLs - Laying supine, getting out of chair, lifting suitcases Patient goals: Improve pain levels Patient Questionnaires Oswestry Low Back Index Oswestry Score 6 Oswestry Impairment 1 to 19% Impaired (Score 1-19) Palpation Assessment Location One Palpation Findings Tenderness Palpation Details TTP L4-S1 spinous processes and L adjacent paraspinal musculature Lumbar Spine Range of Motion Lumbar Spine Active Degrees Testing Position Supine Comments Movement screen: Flexion: Limited Extension: WFL R rotation: WFL L rotation: WFL L lateral flexion: WFL, pain reproduction R lateral flexion: WFL Squat: Reduced anterior knee translation, increased posterior hip translation Hinge: Increased lumbar flexion, reduced posterior hip translation, pain reproduction Lower quarter screen: 5/5 all myotomes Hip Goniometric Range of Motion Hip Right Active Flexion w/Knee 140 Flexed Internal Rotation 30 External Rotation 45 Left Active Flexion w/Knee 135 Flexed Internal Rotation 30 External Rotation 45 Therapeutic Exercises Supine Exercises Posterior pelvic tilts Reps/Minutes x20 Prone Exercises Cat cows Reps/Minutes x20 Physical Therapy Assessment Rehab Potential Rehabilitation Good Potential Evaluation Complexity Number of Personal 0 Factors/ Comorbidities Number of Body 1-2 Systems Impaired Clinical Stable Presentation at Evaluation Impairments Impairments Activity Tolerance,Balance,Coordination,Functional Activities,Functional Mobility,Gait,Pain,Posture,ROM, Soft Tissue Mobility,Strength,Transfers Goals HEP Impairment Lack of HEP Short Term Goal (STG Patient will initiate regular HEP/ walking program. ) STG Duration 4 weeks Intermediate Goal (LTG) Patient will be independent with regular HEP/ walking program in order to maintain theraputic gains. LTG Duration 8 weeks Two Impairment Lumbar load tolerance Short Term Goal (STG Patient will lift 20# from the ground with proper ) mechanics and no increase in pain levels in order to better function with picking up a suitcase. STG Duration 4 weeks Intermediate Goal (LTG) Patient will lift 40# from the ground with proper mechanics and no increase in pain levels in order to better function with picking up a suitcase. LTG Duration 8 weeks One Impairment General function Short Term Goal (STG Patient will report a GROC of 20% in order to show an ) increase in self-perceived function. STG Duration 4 weeks Preconstruction Manager Goal (LTG) Patient will report a GROC of 40% in order to show an increase in self-perceived function. LTG Duration 8 weeks Assessment Summary Assessment Patient presenting to PT with complaints of L low back pain that is limiting function with bending down, lifting her suitcase, laying supine, and getting out of a chair. Objective investigation revealed deficits in lumbar ROM (See objective measures: flexion), and tenderness to palpation of L4-S1 spinous processes, and symptom reproduction with standing hip hinge. Presentation is consistent with non-specific mechanical low back pain and patient will benefit from PT to address deficits and return to prior level of function. Physical Therapy Plan Frequency and Duration Frequency of 2x/Week Treatment Duration of 12 treatment (weeks) Plan of Care Start 07/14/25 Date Plan of Care End 07/26/25 Date Therapeutic Interventions Therapeutic Balance Training,Coordination Training,Gait Training, Interventions Home Exercise Program,Joint Mobilizations,Manual Therapy,Neuromuscular Re-education,Patient/Caregiver Education,Self-Care/Home Management,Soft Tissue Mobilization,Taping,Therapeutic Activities,Therapeutic Exercises Modalities Biofeedback,Cold Pack/Ice Massage,Electric Stimulation, Hot Packs,Infrared Therapy,Iontophoresis,Traction- Mechanical,Vasopneumatic Devices Next Visit Focus/Plan Next Note Type Treatment Note Next Visit Plan Initiate plan of care with focus on lumbar mobility and progressive spine, core, and hip strengthening, particularly with hip hinge movement pattern. Current HEP: Supine posterior pelvic tilts Cat cows
--- NOTE | 2025-07-28 09:00 | PT.OTN ---
Current Diagnoses Low back pain, unspecified (07/28/25) Physical Therapy Treatment Note PT OP: Lower Back/Lower Extremity Start: 07/14/25 10:57 Freq: Status: Active Protocol: Document 07/28/25 07:29 EDSON (Rec: 07/28/25 09:00 EDSON [id number]) Out-Patient Physical Therapy Visit Information Visit Information Visit Type Treatment Note Visit Start Time 08:13 Visit Stop Time 08:53 Visit Number 2 Number of FORMATION TESTING OPERATOR Visits 0 Progress Note Due 08/13/25 OP-PT Subjective Patient Comments Patient Comments Patient reports her back is still bothering her. She reports she has been doing her home exercises but notes no change in symptoms. Therapeutic Exercises Supine Exercises Supine hip bridge Reps/Minutes 3x10 Posterior pelvic tilts Reps/Minutes x20 Prone Exercises Cat cows Reps/Minutes x20 Sitting Exercises Seated hip hinge Resistance 8# Reps/Minutes 3x10 Standing Exercises Front plank on plinth Reps/Minutes 3x30 Standing hip hinge Reps/Minutes 3x10 Sit to stand Reps/Minutes 3x10 Physical Therapy Assessment Goals HEP Impairment Lack of HEP Short Term Goal (STG Patient will initiate regular HEP/ walking program. ) STG Duration 4 weeks Statue Maker Goal (LTG) Patient will be independent with regular HEP/ walking program in order to maintain theraputic gains. LTG Duration 8 weeks Two Impairment Lumbar load tolerance Short Term Goal (STG Patient will lift 20# from the ground with proper ) mechanics and no increase in pain levels in order to better function with picking up a suitcase. STG Duration 4 weeks Prison Goal (LTG) Patient will lift 40# from the ground with proper mechanics and no increase in pain levels in order to better function with picking up a suitcase. LTG Duration 8 weeks One Impairment General function Short Term Goal (STG Patient will report a GROC of 20% in order to show an ) increase in self-perceived function. STG Duration 4 weeks Prison Goal (LTG) Patient will report a GROC of 40% in order to show an increase in self-perceived function. LTG Duration 8 weeks Assessment Summary Assessment Treatment was initiated with focus on lumbar strengthening and neuromuscular coordination. Patient tolerated treatment well with no lasting increases in pain levels. Plan next session to follow up on home exercises and continue with plan of care. Physical Therapy Plan Frequency and Duration Frequency of 2x/Week Treatment Duration of 12 treatment (weeks) Plan of Care Start 11/12/25 Date Plan of Care End 10/12/25 Date Next Visit Focus/Plan Next Note Type Treatment Note Next Visit Plan Initiate plan of care with focus on lumbar mobility and progressive spine, core, and hip strengthening, particularly with hip hinge movement pattern. Current HEP: Supine posterior pelvic tilts Cat cows Sit to stands Hip bridges
--- NOTE | 2025-08-02 09:40 | PT.OTN ---
Current Diagnoses Low back pain, unspecified (08/02/25) Physical Therapy Treatment Note PT OP: Lower Back/Lower Extremity Start: 07/14/25 10:57 Freq: Status: Active Protocol: Document 08/02/25 08:58 JZ (Rec: 08/02/25 09:40 JZ [id number]) Out-Patient Physical Therapy Visit Information Visit Information Visit Type Treatment Note Visit Start Time 09:00 Visit Stop Time 09:40 Visit Number 2 Number of PIN ATTACHER Visits 0 Progress Note Due 08/13/25 OP-PT Subjective Patient Comments Patient Comments Patient reports she took some tyelenol this morning and currently has no pain. She reports that she had a UTI over the weekend and has been generally been feeling lethargic. She reports her back was feeling good after her last session but she had some pain over the weekend . Therapeutic Exercises Supine Exercises Supine hip bridge Reps/Minutes 3x10 Posterior pelvic tilts Reps/Minutes x20 Prone Exercises Cat cows Reps/Minutes x20 Sitting Exercises Seated hip hinge Resistance 10# Reps/Minutes 2x20 Standing Exercises Side plank elevated on plinth Reps/Minutes 2x30 each side Front plank on plinth Reps/Minutes 3x30 Standing hip hinge Resistance 10# Reps/Minutes 4x10 Sit to stand Resistance 10# DB Reps/Minutes 3x10 Comments Cues for foot placement and lumbo-pelvic mechanics Physical Therapy Assessment Goals HEP Impairment Lack of HEP Short Term Goal (STG Patient will initiate regular HEP/ walking program. ) STG Duration 4 weeks Custodial Goal (LTG) Patient will be independent with regular HEP/ walking program in order to maintain theraputic gains. LTG Duration 8 weeks Two Impairment Lumbar load tolerance Short Term Goal (STG Patient will lift 20# from the ground with proper ) mechanics and no increase in pain levels in order to better function with picking up a suitcase. STG Duration 4 weeks Custodial Goal (LTG) Patient will lift 40# from the ground with proper mechanics and no increase in pain levels in order to better function with picking up a suitcase. LTG Duration 8 weeks One Impairment General function Short Term Goal (STG Patient will report a GROC of 20% in order to show an ) increase in self-perceived function. STG Duration 4 weeks Documentum Consultant Goal (LTG) Patient will report a GROC of 40% in order to show an increase in self-perceived function. LTG Duration 8 weeks Assessment Summary Assessment Treatment focused on progressing lumbar and LE strengthening. Patient tolerated treatment well with no increases in pain levels. Plan next session to follow up on home exercises and continue with plan of care. Physical Therapy Plan Frequency and Duration Frequency of 2x/Week Treatment Duration of 12 treatment (weeks) Plan of Care Start 07/14/25 Date Plan of Care End 10/12/25 Date Next Visit Focus/Plan Next Note Type Treatment Note Next Visit Plan Initiate plan of care with focus on lumbar mobility and progressive spine, core, and hip strengthening, particularly with hip hinge movement pattern. Current HEP: Supine posterior pelvic tilts Cat cows Sit to stands Hip bridges
--- NOTE | 2025-08-04 08:55 | PT.OTN ---
Current Diagnoses Low back pain, unspecified (08/04/25) Physical Therapy Treatment Note PT OP: Lower Back/Lower Extremity Start: 07/14/25 10:57 Freq: Status: Active Protocol: Document 08/04/25 08:05 EDSON (Rec: 08/04/25 08:55 EDSON [id number]) Out-Patient Physical Therapy Visit Information Visit Information Visit Type Treatment Note Visit Start Time 08:15 Visit Stop Time 08:55 Visit Number 3 Number of PREP MANAGER Visits 0 Progress Note Due 08/13/25 OP-PT Subjective Patient Comments Patient Comments Patient reports her back has been feeling good lately. No pain at the moment or yesterday. She is leaving for her trip on Saturday. Therapeutic Exercises Supine Exercises Supine hip bridge Reps/Minutes 3x10 Posterior pelvic tilts Reps/Minutes x20 Prone Exercises Cat cows Reps/Minutes x20 Sitting Exercises Seated hip hinge Resistance 10# Reps/Minutes 2x20 Standing Exercises Side plank elevated on plinth Reps/Minutes 3x30 each side Front plank on plinth Reps/Minutes 3x30 Standing hip hinge Resistance 10# Reps/Minutes 4x10 Sit to stand Resistance 10# DB Reps/Minutes 3x10 Comments Cues for foot placement and lumbo-pelvic mechanics Physical Therapy Assessment Goals HEP Impairment Lack of HEP Short Term Goal (STG Patient will initiate regular HEP/ walking program. ) STG Duration 4 weeks Manager Case Goal (LTG) Patient will be independent with regular HEP/ walking program in order to maintain theraputic gains. LTG Duration 8 weeks Two Impairment Lumbar load tolerance Short Term Goal (STG Patient will lift 20# from the ground with proper ) mechanics and no increase in pain levels in order to better function with picking up a suitcase. STG Duration 4 weeks Manager Case Goal (LTG) Patient will lift 40# from the ground with proper mechanics and no increase in pain levels in order to better function with picking up a suitcase. LTG Duration 8 weeks One Impairment General function Short Term Goal (STG Patient will report a GROC of 20% in order to show an ) increase in self-perceived function. STG Duration 4 weeks Custodial Goal (LTG) Patient will report a GROC of 40% in order to show an increase in self-perceived function. LTG Duration 8 weeks Assessment Summary Assessment Treatment focused on progressing lumbar and LE strengthening. Patient tolerated treatment well with no increases in pain levels. Plan next session to follow up on back symptoms while on trip and resume strength exercises. Physical Therapy Plan Frequency and Duration Frequency of 2x/Week Treatment Duration of 12 treatment (weeks) Plan of Care Start 07/14/25 Date Plan of Care End 10/12/25 Date Next Visit Focus/Plan Next Note Type Treatment Note Next Visit Plan Initiate plan of care with focus on lumbar mobility and progressive spine, core, and hip strengthening, particularly with hip hinge movement pattern. Current HEP: Supine posterior pelvic tilts Cat cows Sit to stands Hip bridges
--- NOTE | 2025-08-13 15:35 | PT.OPPN ---
Current Diagnoses Low back pain, unspecified (08/13/25) Physical Therapy Progress Note PT OP: Lower Back/Lower Extremity Start: 07/14/25 10:57 Freq: Status: Active Protocol: Document 08/13/25 14:34 JZ (Rec: 08/13/25 15:35 JZ [id number]) Out-Patient Physical Therapy Visit Information Visit Information Visit Type Progress Note Visit Start Time 14:35 Visit Stop Time 15:15 Visit Number 5 Number of BACK SIZER Visits 0 Progress Note Due 09/12/25 OP-PT Subjective Patient Comments Patient Comments Patient reports her back has been doing okay. She reports she is still having some pain in her back in the morning. She has no pain in her back at the moment. She reports she has pain up to a 6/10 in the morning that reduces once she gets moving. She reports her back did well while on her trip and she did not have significant pain while moving her suitcase. She reports her GROC is 35%. She notes the main improvement is with pain intensity. Patient reports her L knee started hurting last Saturday and she thinks it was caused by her elevated side planks she did last Saturday. Therapeutic Exercises Supine Exercises Supine hip bridge Reps/Minutes 2x10 Posterior pelvic tilts Reps/Minutes x10 Prone Exercises Cat cows Reps/Minutes x20 Sitting Exercises Seated hip hinge Resistance 10# Reps/Minutes 2x20 Standing Exercises Standing hip hinge Resistance 10# Reps/Minutes 3x10 Sit to stand Resistance 10# DB Reps/Minutes x10 Comments Cues for foot placement and lumbo-pelvic mechanics Physical Therapy Assessment Goals HEP Impairment Lack of HEP Short Term Goal (STG Patient will initiate regular HEP/ walking program. ) Met - 08/13/2025 STG Duration 4 weeks Prison Goal (LTG) Patient will be independent with regular HEP/ walking program in order to maintain theraputic gains. In progress - 08/13/2025 LTG Duration 8 weeks Two Impairment Lumbar load tolerance Short Term Goal (STG Patient will lift 20# from the ground with proper ) mechanics and no increase in pain levels in order to better function with picking up a suitcase. STG Duration 4 weeks Prison Goal (LTG) Patient will lift 40# from the ground with proper mechanics and no increase in pain levels in order to better function with picking up a suitcase. Met - 08/13/2025 (lifting up to 51# suitcase while on vacation) LTG Duration 8 weeks One Impairment General function Short Term Goal (STG Patient will report a GROC of 20% in order to show an ) increase in self-perceived function. STG Duration 4 weeks Navy Senior Officer Goal (LTG) Patient will report a GROC of 40% in order to show an increase in self-perceived function. LTG Duration 8 weeks Assessment Summary Assessment Patient presenting to PT after 4 PT visits for low back pain. Patient has reported improvement with general function, pain levels, and lifting tolerance. Further investigation revealed improvement with lifting tolerance (see goal section), and function (see GROC). Patient will continue to benefit from PT to address remaining deficits and return to full prior level of function. Physical Therapy Plan Frequency and Duration Frequency of 2x/Week Treatment Duration of 12 treatment (weeks) Plan of Care Start 07/14/25 Date Plan of Care End 10/12/25 Date Next Visit Focus/Plan Next Note Type Treatment Note Next Visit Plan Initiate plan of care with focus on lumbar mobility and progressive spine, core, and hip strengthening, particularly with hip hinge movement pattern. Current HEP: Supine posterior pelvic tilts Cat cows Sit to stands Hip bridges
--- NOTE | 2025-08-16 09:01 | PT.OTN ---
Current Diagnoses Low back pain, unspecified (08/16/25) Physical Therapy Treatment Note PT OP: Lower Back/Lower Extremity Start: 07/14/25 10:57 Freq: Status: Active Protocol: Document 08/16/25 07:28 EDSON (Rec: 08/16/25 09:01 EDSON [id number]) Out-Patient Physical Therapy Visit Information Visit Information Visit Type Treatment Note Visit Start Time 07:30 Visit Stop Time 08:10 Visit Number 6 Number of HANDKERCHIEF CUTTER Visits 0 Progress Note Due 09/12/25 OP-PT Subjective Patient Comments Patient Comments Patient reports her back was feeling good after last session. She reports her knee is still bothering her. She reports her back feels good this morning. Therapeutic Exercises Supine Exercises Supine hip bridge Reps/Minutes 2x10 Posterior pelvic tilts Reps/Minutes x10 Prone Exercises Cat cows Reps/Minutes x20 Sitting Exercises LAQ Reps/Minutes 2x10 Seated lumbar rotation Reps/Minutes 2x10 Stationary bike Reps/Minutes x5 mins Seated hip hinge Resistance 10# Reps/Minutes 2x20 Standing Exercises Standing hip hinge Resistance 10# Reps/Minutes 2x15 Physical Therapy Assessment Goals HEP Impairment Lack of HEP Short Term Goal (STG Patient will initiate regular HEP/ walking program. ) Met - 08/13/2025 STG Duration 4 weeks Residential Green Building Designer Goal (LTG) Patient will be independent with regular HEP/ walking program in order to maintain theraputic gains. In progress - 08/13/2025 LTG Duration 8 weeks Two Impairment Lumbar load tolerance Short Term Goal (STG Patient will lift 20# from the ground with proper ) mechanics and no increase in pain levels in order to better function with picking up a suitcase. Met - 08/16/2025 STG Duration 4 weeks Residential Green Building Designer Goal (LTG) Patient will lift 40# from the ground with proper mechanics and no increase in pain levels in order to better function with picking up a suitcase. Met - 08/13/2025 (lifting up to 51# suitcase while on vacation) LTG Duration 8 weeks One Impairment General function Short Term Goal (STG Patient will report a GROC of 20% in order to show an ) increase in self-perceived function. Met - 08/13/2025 STG Duration 4 weeks Residential Green Building Designer Goal (LTG) Patient will report a GROC of 40% in order to show an increase in self-perceived function. In progress - 08/13/2025 LTG Duration 8 weeks Assessment Summary Assessment Treatment focused on gentle lumbar and knee mobility. Patient reported increased knee pain upon presentation today so compound strengthening exercises were held today. She responded well to treatment with some reported reduction in L knee pain at end of session. Because of knee pain being primary concern at this time , plan to discharge episode of care at next session. Patient recommended to follow up with orthopedics about knee. Physical Therapy Plan Frequency and Duration Frequency of 2x/Week Treatment Duration of 12 treatment (weeks) Plan of Care Start 07/14/25 Date Plan of Care End 10/12/25 Date Next Visit Focus/Plan Next Note Type Treatment Note Next Visit Plan Initiate plan of care with focus on lumbar mobility and progressive spine, core, and hip strengthening, particularly with hip hinge movement pattern. Current HEP: Supine posterior pelvic tilts Cat cows Sit to stands Hip bridges
--- NOTE | 2025-08-19 09:46 | PT.OPDS ---
Current Diagnoses Low back pain, unspecified (08/19/25) Visit Care Team Role Provider Type Leatha Ackerman MD Family Provider Physician Primary Care Provider Specialty: Family Practice Obstetrics Address: [address] [place] [address] Email: [email or web address] Lawrence MD Attending Provider Physician Referring Provider Specialty: Orthopedics Orthopedic Surgery Address: [address] [place], [place] [address], [place], [address] Email: [email or web address] Visit Number Visit Number 7 Discharge Summary PT OP: Lower Back/Lower Extremity Start: 07/14/25 10:57 Freq: Status: Active Protocol: Document 08/19/25 07:25 JZ (Rec: 08/19/25 09:45 JZ [id number]) Out-Patient Physical Therapy Visit Information Visit Information Visit Type Discharge Summary Visit Start Time 07:30 Visit Stop Time 08:10 Visit Number 7 Number of VISITING TEACHER Visits 0 Progress Note Due 09/12/25 OP-PT Subjective Patient Comments Patient Comments Patient reports her back pain is a little increased today. She reports her knee was feeling a little better yesterday but is bothersome again today. She reports she is comfortable with today being her last PT session . Therapeutic Exercises Supine Exercises Supine hip bridge Reps/Minutes 2x10 Posterior pelvic tilts Reps/Minutes x15 Prone Exercises Cat cows Reps/Minutes x20 Sitting Exercises Seated lumbar rotation Reps/Minutes 2x10 Stationary bike Resistance level 3 resistance Reps/Minutes x5 mins Seated hip hinge Resistance 10# Reps/Minutes 2x20 Standing Exercises Standing hip hinge Resistance 10# Reps/Minutes 2x15 Physical Therapy Assessment Goals HEP Impairment Lack of HEP Short Term Goal (STG Patient will initiate regular HEP/ walking program. ) Met - 08/13/2025 STG Duration 4 weeks Brazer Production Line Goal (LTG) Patient will be independent with regular HEP/ walking program in order to maintain theraputic gains. In progress - 08/13/2025 LTG Duration 8 weeks Two Impairment Lumbar load tolerance Short Term Goal (STG Patient will lift 20# from the ground with proper ) mechanics and no increase in pain levels in order to better function with picking up a suitcase. Met - 08/16/2025 STG Duration 4 weeks Brazer Production Line Goal (LTG) Patient will lift 40# from the ground with proper mechanics and no increase in pain levels in order to better function with picking up a suitcase. Met - 08/13/2025 (lifting up to 51# suitcase while on vacation) LTG Duration 8 weeks One Impairment General function Short Term Goal (STG Patient will report a GROC of 20% in order to show an ) increase in self-perceived function. Met - 08/13/2025 STG Duration 4 weeks Brazer Production Line Goal (LTG) Patient will report a GROC of 40% in order to show an increase in self-perceived function. In progress - 08/13/2025 LTG Duration 8 weeks Assessment Summary Assessment Treatment focused on reviewing home exercises to continue with. Because of progress noted on previous visit (see note on 08/13/2025), and patient confidence with continuing progress independently, today will be her last formal PT session. Of note, patient continues to have L knee pain and was advised to consult with orthopedics secondary to injury history and history of bone mineral density issues. Physical Therapy Plan Frequency and Duration Frequency of 2x/Week Treatment Duration of 12 treatment (weeks) Plan of Care Start 07/14/25 Date Plan of Care End 10/12/25 Date Next Visit Focus/Plan Next Visit Plan N/A - episode to be discharged today.
== END 2025-08-20 10:09 | disposition home or self-care (01) ==
LOC: PHYS 07:30
PROVIDERS: Family Provider Student in an Organized Health Care Education/Training Program; PCP Student in an Organized Health Care Education/Training Program; Referring Provider Orthopaedic Surgery Adult Reconstructive Orthopaedic Surgery; Visit Provider Orthopaedic Surgery Adult Reconstructive Orthopaedic Surgery
DX: M54.50 Low back pain, unspecified (principal)
CPT/HCPCS: 97110; 97161